=== PATIENT | female | born 1955 | race Caucasian/White ===

== ENCOUNTER 2023-06-11 05:06 | Emergency (ER) | payer OTHER, SELFPAY ==
[2023-06-11] VITALS (8 sets, daily range): BP systolic 81–136; BP diastolic 28–74
--- NOTE | 2023-06-11 07:03 | ED.GENMED ---
History of Present Illness
General
Chief Complaint: Cough
Source: patient
Exam Limitations: none
Time Seen by Provider: 06/11/23 06:18
Travel History
Have you had any contact with someone who has COVID-19?: No
Do you have any symptoms of coronavirus? Fever > 100 degrees, chills, cough, shortness of breath, sore throat, loss of taste or smell, muscle aches, or headache?: No
History of Present Illness
History of Present Illness:
67-year-old female states that she has had a cold for about a week and a half. She states she still is possible postnasal drip is been coughing. Starting last night she noticed some blood. She first noticed it by rinsing her mouth and tasting
blood. She states that she coughed and noticed that she had more blood. No fevers. Does have history of COPD and bronchiectasis and is followed by pulmonology. Patient also has a history of atrial fibrillation in the past and is on Eliquis.
Patient on evaluation states she feels okay. She has had no further hemoptysis here in the emergency department.
Past History
Past History
ED Past Medical History: Arrthythmia (Atrial fibrillation), Asthma, Cancer (Breast cancer), COPD, GERD, HTN and Other (Scleroderma, pulmonary pretension, bronchiectasis, anemia, alpha-1 antitrypsin deficiency)
ED Past Surgical History: Cholecystectomy, Gynecological (Right mastectomy) and Orthopedic
Social History
Tobacco: Non-smoker
Alcohol: None
Drug: None
Personal: Other
Living: with family
Employment: Retired
Family History
Family History: Other (Noncontributory)
Phy Exam
Physical Exam
Physical Exam:
CONSTITUTIONAL Patient alert and oriented to person, place and time. Well-appearing. Vital signs reviewed.
HEAD atraumatic, normocephalic.
EYES eyelids normal to inspection, Pupils equally round and reactive to light, Extraocular muscles intact, Conjunctiva normal, Sclera normal.
NECK normal range of motion, Trachea midline, no jugular venous distention.
RESPIRATORY CHEST No respiratory distress noted, Chest expansion equal, Bilateral breath sounds clear.
CARDIOVASCULAR regular rate and rhythm, Heart sounds normal.
ABDOMEN abdomen nontender, Bowel sounds normal. No distention.
BACK normal inspection, no obvious deformities
UPPER EXTREMITY range of motion normal, Motor strength normal, no cyanosis, no edema.
LOWER EXTREMITY range of motion normal, Motor strength normal, no cyanosis, no edema.
NEURO Speech normal, No focal motor deficits, Flower coma scale 15, Memory normal, Cranial Nerves intact to screening exam.
SKIN skin warm, dry, and normal in color.
PSYCHIATRIC patient oriented to person place and time, Normal affect.
Course
Orders/Labs/Results
Orders:
Orders
06/11/23 06:22
CR Chest - 2 Views Urgent
Comment:
Reason For Exam: cough
06/11/23 06:56
CT Chest With Iv Contrast Urgent
Comment:
Reason For Exam: hemoptysis, abnormal CXR
06/11/23 07:14
Complete Blood Count/With Diff Urgent
Comprehensive Metabolic Panel Urgent
Abnormal Lab Results
06/11/23
07:14
RBC 4.12 L 10^6/uL
(4.20-5.40)
Hct 35.1 L %
(37.0-47.0)
Absolute Monos (auto) 0.9 H 10^3/uL
(0.1-0.6)
Monocytes % 10.9 H %
(1.7-9.3)
Potassium 3.1 L mmol/L
(3.5-5.1)
Glucose 102 H mg/dl
(70-99)
Alkaline Phosphatase 134 H U/L
(38-126)
06/11/23 07:14
06/11/23 07:14
Vital Signs
Initial and Last Documented VS:
Initial Vital Signs
Temp Pulse Resp BP Pulse Ox
98.2 F 82 18 134/70 97
06/11/23 05:08 06/11/23 05:08 06/11/23 05:08 06/11/23 05:08 06/11/23 05:08
Last Documented Vital Signs
Temp Pulse Resp BP Pulse Ox
98.2 F 67 16 115/66 93
06/11/23 05:08 06/11/23 07:00 06/11/23 07:00 06/11/23 11:00 06/11/23 11:30
MDM/Problems Addressed
MDM/Problems Addressed:
Hemoptysis, therapeutic anticoagulation
*Radiology
Radiology exam reviewed: preliminary read by ED provider (Chest x-ray abnormal with left nodule versus rounded pneumonia) and radiology read reviewed
*Pulse Oximetry
Patient hypoxic: no
*Telephone Cleaner Interpretation
Rate: normal
Interpretation: normal
Rhythm: sinus
*Critical Care Note
Total Time (30-74mins, 75-104mins- exclusive of procedures): 30 minutes
Data Reviewed
Source: patient
Patient Management
Discussion with other providers: Panelboard [employer] Pumper (Case discussed with pulmonology)
Escalation/DeEscalation of care consider admission/obs:
Patient remained stable throughout most of her stay. Upon eating a sandwich she noticed blood. On reassessment she does have some blood between her left incisor and canine at the gingiva and she also has a small mucosal lesion behind the front 2
teeth on the upper mucosa. I suspect this is the etiology of her bleeding. Case was discussed with pulmonology regarding her CT did recommend steroids and antibiotics which I think is reasonable. In addition, will have her hold her Eliquis for
today and discuss it with her doctor tomorrow. She currently has a regular rhythm
ED Attending Note
-
Portions of this chart may have been created with voice recognition software.� Occasional wrong word or��sound alike� substitutions may have occurred due to the inherent limitations of voice recognition software.
Discharge Plan
Departure
Patient Disposition: Home (Routine Discharge)
Date of Disposition: 06/11/23
Time of Disposition: 12:24
Patient with high blood pressure during this ER visit?: No
Discharge Problem:
Bleeding oral mucosa, Bronchiectasis
Prescriptions:
New
prednisone 10 mg tablet
10 mg PO DAILY Qty: 15 0RF
Rx Instructions:
Take 20mg daily x 5 days then 10mg daily x 5 days
amoxicillin-pot clavulanate 875-125 mg tablet
1 tab PO Q12H Qty: 20 0RF
No Action
omeprazole 40 MG capsule,delayed release(DR/EC)
40 mg PO DAILY
albuterol sulfate 1 PUFF HFA aerosol inhaler
2 puff inhalation R Q4HPRN PRN (Reason: sob)
anastrozole 1 MG tablet
1 mg PO HS
fluoxetine 20 MG capsule
20 mg PO DAILY
furosemide 40 MG tablet
40 mg PO BID
Eliquis 5 MG tablet
5 mg PO BID
Hold Instructions: restart 10/31
diltiazem HCl 240 MG capsule,extended release 24hr
240 mg PO DAILY
atorvastatin 10 mg Tablet
10 mg PO HS
budesonide-formoterol [Symbicort] 80-4.5 mcg/actuation Hfa Aerosol Inhaler
2 puff INHALATION BID
Patient Comments:
on hold
Spiriva Respimat 1.25 mcg/actuation Mist
2 puff INHALATION DAILY
Patient Comments:
on hold
Vitamin D (with calcium)
1 tab PO DAILY
Rx Instructions:
1000 IU
Referrals:
John Palencia I., DO [Family Provider] -
Activity Restrictions/Additional Instructions:
Bronchiectasis
Bleeding oral mucosa
Please hold your Eliquis today and discuss further use with your doctor tomorrow. Please do not bite into anything hard or any other food and keep food soft and use a fork to place the food in the back of the mouth. Return for difficulty
breathing, fevers, increased bleeding or any other concerns. Please see pulmonology in the next 1 week for follow-up
Interventions
Interventions:
*Risk Screen - Suicide Last Done: 06/11/23 05:08
*General Assessment Last Done: 06/11/23 05:38
*Neglect/Abuse Screening Last Done: 06/11/23 05:08
ED- Fall Risk Assessment Last Done: 06/11/23 05:38
*ED COVID-19 Vaccine History Last Done: 06/11/23 05:38
ED- Pulmonary Assessment Last Done: 06/11/23 07:33
Discharge Date and Time
Print Language: CROATIAN
[2023-06-11 07:26] LABS: % Basophils 0.7 % (0-2); % Eosinophils 2.3 % (0-6); % Immature Granulocytes 0.5 % (0-0.5); % Lymphocytes 21.4 % (20.5-51.1); % Monocytes 10.9 % (1.7-9.3); % Neutrophils 64.2 % (42.2-75.2); Absolute Basophils 0.1 10^3/uL (0-0.2); Absolute Eosinophils 0.2 10^3/uL (0-0.7); Absolute Lymphocytes 1.8 10^3/uL (1.2-3.4); Absolute Monocytes 0.9 10^3/uL (0.1-0.6); Absolute Neutrophils 5.4 10^3/uL (1.4-6.5); Hematocrit 35.1 % (37.0-47.0); Hemoglobin 12.2 g/dL (12.0-16.0); Mean Corp Hgb Conc. 34.8 g/dL (33.0-37.0); Mean Corpuscular Hgb 29.6 pg (27.0-31.0); Mean Corpuscular Volume 85.2 fL (81.0-99.0); Mean Platelet Volume 9.4 fL (7.4-10.4); Nucleated Red Blood Cells % 0 %; Platelet Count 304 10^3/uL (130-400); Red Blood Cell Count 4.12 10^6/uL (4.20-5.40); Red Cell Dist. Width 12.6 % (11.5-14.5); White Blood Cell Count 8.4 10^3/uL (4.8-10.8)
[2023-06-11 07:43] LABS: ALT (SGPT) 15 U/L (0-35); AST (SGOT) 27 U/L (14-36); Albumin 4.4 g/dl (3.5-5.0); Alkaline Phosphatase 134 U/L (38-126); Blood Urea Nitrogen 15 mg/dl (7-17); Calcium 9.5 mg/dl (8.4-10.2); Carbon Dioxide 30 mmol/L (22-30); Chloride 99 mmol/L (98-107); Glucose 102 mg/dl (70-99); Potassium 3.1 mmol/L (3.5-5.1); Sodium 136 mmol/L (135-145); Total Bilirubin 0.4 mg/dl (0.2-1.3); Total Protein 7.5 g/dl (6.3-8.2); eGFR > 60.00
== END 2023-06-11 12:48 | disposition home or self-care (01) ==
LOC: EMR 05:06
PROVIDERS: EMERGENCY PHYSICIAN Emergency Medicine; FAMILY PHYSICIAN Internal Medicine
DX: J47.9 Bronchiectasis, uncomplicated (principal); K13.79 Other lesions of oral mucosa; J44.9 Chronic obstructive pulmonary disease, unspecified; I48.91 Unspecified atrial fibrillation; J45.909 Unspecified asthma, uncomplicated; K21.9 Gastro-esophageal reflux disease without esophagitis; I10 Essential (primary) hypertension; M34.9 Systemic sclerosis, unspecified; Z79.01 Long term (current) use of anticoagulants; Z85.3 Personal history of malignant neoplasm of breast; Z90.11 Acquired absence of right breast and nipple; Z90.49 Acquired absence of other specified parts of digestive tract; Z98.82 Breast implant status
CPT/HCPCS: 99284; 71046; 71260; 80053; 85025; Q9967

== ENCOUNTER 2023-07-01 02:37 | Inpatient (IN) | payer OTHER, MEDICARE, SELFPAY ==
[2023-06-30 20:10] VITALS: BP 104/73; BMI 30.4
[2023-06-30 20:36] LABS: % Basophils 0.3 % (0-2); % Eosinophils 0.3 % (0-6); % Immature Granulocytes 0.3 % (0-0.5); % Lymphocytes 8.2 % (20.5-51.1); % Monocytes 8.8 % (1.7-9.3); % Neutrophils 82.1 % (42.2-75.2); Absolute Lymphocytes 1.1 10^3/uL (1.2-3.4); Absolute Monocytes 1.2 10^3/uL (0.1-0.6); Absolute Neutrophils 11.3 10^3/uL (1.4-6.5); Hematocrit 38.3 % (37.0-47.0); Hemoglobin 13.5 g/dL (12.0-16.0); Mean Corp Hgb Conc. 35.2 g/dL (33.0-37.0); Mean Corpuscular Hgb 29.6 pg (27.0-31.0); Mean Platelet Volume 9.9 fL (7.4-10.4); Nucleated Red Blood Cells % 0 %; Platelet Count 188 10^3/uL (130-400); Red Blood Cell Count 4.56 10^6/uL (4.20-5.40); Red Cell Dist. Width 13.2 % (11.5-14.5); White Blood Cell Count 13.7 10^3/uL (4.8-10.8)
[2023-06-30 20:55] LABS: COVID-19 Antigen Negative (Negative)
[2023-06-30 20:59] LABS: ALT (SGPT) 17 U/L (0-35); AST (SGOT) 24 U/L (14-36); Alkaline Phosphatase 127 U/L (38-126); Blood Urea Nitrogen 18 mg/dl (7-17); Calcium 9.7 mg/dl (8.4-10.2); Carbon Dioxide 22 mmol/L (22-30); Chloride 99 mmol/L (98-107); Estimated Creatinine Clearance 57 ml/min; Glucose 151 mg/dl (70-99); Potassium 3.5 mmol/L (3.5-5.1); Sodium 130 mmol/L (135-145); Total Bilirubin 1.2 mg/dl (0.2-1.3); Total Protein 7.1 g/dl (6.3-8.2); eGFR > 60.00
[2023-06-30 21:25] VITALS: BP 127/57
[2023-06-30 22:21] VITALS: BP 107/68
--- NOTE | 2023-06-30 22:39 | ED.GENMED ---
History of Present Illness
General
Chief Complaint: Fever
Source: patient
Exam Limitations: none
Time Seen by Provider: 06/30/23 21:45
Nursing documentation reviewed up to this point in time: agreed with
Travel History
Have you had any contact with someone who has COVID-19?: No
Do you have any symptoms of coronavirus? Fever > 100 degrees, chills, cough, shortness of breath, sore throat, loss of taste or smell, muscle aches, or headache?: No
History of Present Illness
History of Present Illness:
Patient is a 67-year-old female with past medical history of scleroderma COPD A-fib hypertension GI bleed followed by pulmonology presents to the ER complaining of cough subjective fevers for the past 2 days. She feels very weak she is short of
breath with exertion. She has been using her inhalers at home. Patient was seen here June 10 for bronchiectasis and cough and was discharged on antibiotics and steroids. She did report that after completion of antibiotics she did feel
improvement and the symptoms are new for the past several days after seeing her grandkids.
Patient did have a CAT scan during that ER visit 06/10 which showed stable moderate extensive bronchiectasis throughout both lungs stable 2 cm enlarged pretracheal lymph node at the level of the damaris and new patchy areas of airspace disease in
right middle lobe may reflect pneumonia or mucoid impaction.
Past History
Past History
ED Past Medical History: Arrthythmia (Atrial fibrillation), Asthma, Cancer (Breast cancer), COPD, GERD, HTN and Other (Scleroderma, pulmonary pretension, bronchiectasis, anemia, alpha-1 antitrypsin deficiency)
ED Past Surgical History: Cholecystectomy, Gynecological (Right mastectomy) and Orthopedic
Social History
Tobacco: Non-smoker
Alcohol: None
Drug: None
Personal: Other
Living: with family
Employment: Retired
Family History
Family History: Other (Noncontributory)
Review of Systems
Review of Systems
Allergies reviewed?: Yes
All Other Systems: ROS reviewed and negative except as documented in HPI and ROS
Constitutional: Reports fever, fatigue and chills
EENT: Reports no symptoms
Respiratory: Reports cough and trouble breathing
Cardiac: Reports no symptoms
ABD/GI: Reports no symptoms
: Reports no symptoms
Musculoskeletal: Reports no symptoms
Skin: Reports no symptoms
Neurological: Reports no symptoms
Psychiatric: Reports no symptoms
Phy Exam
General Physical Exam
General Presentation: no apparent distress
General age: appears stated age
General Skin: warm and dry
General Habitus: normal
General Mental: alert
General Hydration: appears well hydrated
Cardiovascular Exam
Cardiovascular Exam: no murmur, normal peripheral pulses and irregularly irregular
Pulmonary Exam
Pulmonary Exam: no respiratory distress and other (+ cough rhonchi throughout )
Neurological Exam
Neurological Exam: alert and oriented x3
Musculoskeletal Exam
Musculoskeletal Exam: full ROM
Skin Exam
Skin Exam: normal color and warm/dry
Psychiatric Exam
Psychiatric Exam: normal mood/affect
Course
Orders/Labs/Results
Orders:
Orders
06/30/23 20:13
Electrocardiogram (*1) Urgent
Reason for Study: Other
Other Reason for Exam: Respiratory Distress
EKG- Treatment ONCE
CR Chest - 2 Views Urgent
Comment:
Reason For Exam: respiratory distress
06/30/23 20:28
COVID-19 Antigen Urgent
Source: Nasal Swab
Complete Blood Count/With Diff Urgent
Comprehensive Metabolic Panel Urgent
Influenza A+B Rapid Molecular Urgent
KALEB Source: Nasal Swab
Specimen Description:
06/30/23 23:36
Albuterol Nebs [Ventolin Nebules] 2.5 mg INH R NOW STA
06/30/23 23:45
Lactic Acid Q4H
Comment: CANCEL 2nd LACTIC ACID IF 1st LACTIC ACID IS LESS THAN 2
Blood Culture Q30M
KALEB Source: Blood/Venous
Specimen Description:
07/01/23 00:15
Blood Culture Q30M
KALEB Source: Blood/Venous
Specimen Description:
07/01/23 03:45
Lactic Acid Q4H
Comment: CANCEL 2nd LACTIC ACID IF 1st LACTIC ACID IS LESS THAN 2
Abnormal Lab Results
06/30/23
20:28
WBC 13.7 H 10^3/uL
(4.8-10.8)
Absolute Neuts (auto) 11.3 H 10^3/uL
(1.4-6.5)
Absolute Lymphs (auto) 1.1 L 10^3/uL
(1.2-3.4)
Absolute Monos (auto) 1.2 H 10^3/uL
(0.1-0.6)
Neutrophils % 82.1 H %
(42.2-75.2)
Lymphocytes % 8.2 L %
(20.5-51.1)
Sodium 130 L mmol/L
(135-145)
BUN 18 H mg/dl
(7-17)
Glucose 151 H mg/dl
(70-99)
Alkaline Phosphatase 127 H U/L
(38-126)
06/30/23 20:28
06/30/23 20:28
Vital Signs
Initial and Last Documented VS:
Initial Vital Signs
Temp Pulse Resp BP Pulse Ox
97.7 F 91 20 104/73 96
06/30/23 20:10 06/30/23 20:10 06/30/23 20:10 06/30/23 20:10 06/30/23 20:10
Last Documented Vital Signs
Temp Pulse Resp BP Pulse Ox
97.7 F 93 17 124/68 90
06/30/23 20:10 06/30/23 23:00 06/30/23 23:00 06/30/23 23:00 06/30/23 23:00
MDM/Problems Addressed
Differential Diagnosis Includes:
Not limited to viral syndrome bronchitis COVID flu pneumonia
MDM/Problems Addressed:
Patient is a 67-year-old female with scleroderma bronchiectasis presents to the ER with productive cough shortness of breath for the past couple days subjective fevers. Patient presents awake alert in no acute distress minimally hypoxic
intermittently will go down as low as 89% on room air patient's has an elevated white count of 13.7 low sodium 130 and worsening bilateral pneumonia. With patient's history of bronchiectasis and scleroderma will admit and or IV antibiotics.
Patient from the Augmentin she felt that she improved during previous on June 10 she does report that this is a new symptom for the past several days.
Patient does have a history of A-fib but normally is in normal sinus rhythm she is anticoagulated. She is found to be in A-fib here with some ST changes. She has had no chest pain however we will still check troponin. pt adm to hosptitalist
service.
Chronic conditions affecting care:
Scleroderma bronchiectasis
*Radiology
Radiology exam reviewed: radiology read reviewed
*Pulse Oximetry
Patient hypoxic: yes
*EKG
Interpreted by ED Provider?: Yes
Interpretation: abnormal
Heart Rate: 93
*Critical Care Note
Total Time (30-74mins, 75-104mins- exclusive of procedures): Not Applicable
ED Attending Note
-
Portions of this chart may have been created with voice recognition software.� Occasional wrong word or��sound alike� substitutions may have occurred due to the inherent limitations of voice recognition software.
Discharge Plan
Departure
Patient Disposition: Home (Routine Discharge)
Date of Disposition: 06/30/23
Time of Disposition: 23:44
Patient with high blood pressure during this ER visit?: No
Condition: Fair
Covid-19: Not Applicable
Discharge Problem:
bilateral pneumonia, hypoxia
Prescriptions:
No Action
omeprazole 40 MG capsule,delayed release(DR/EC)
40 mg PO DAILY
albuterol sulfate 1 PUFF HFA aerosol inhaler
2 puff inhalation R Q4HPRN PRN (Reason: sob)
anastrozole 1 MG tablet
1 mg PO HS
fluoxetine 20 MG capsule
20 mg PO DAILY
furosemide 40 MG tablet
40 mg PO BID
Eliquis 5 MG tablet
5 mg PO BID
Hold Instructions: restart 10/31
diltiazem HCl 240 MG capsule,extended release 24hr
240 mg PO DAILY
atorvastatin 10 mg Tablet
10 mg PO HS
budesonide-formoterol [Symbicort] 80-4.5 mcg/actuation Hfa Aerosol Inhaler
2 puff INHALATION BID
Patient Comments:
on hold
Spiriva Respimat 1.25 mcg/actuation Mist
2 puff INHALATION DAILY
Patient Comments:
on hold
Vitamin D (with calcium)
1 tab PO DAILY
Rx Instructions:
1000 IU
prednisone 10 mg tablet
10 mg PO DAILY Qty: 15 0RF
Rx Instructions:
Take 20mg daily x 5 days then 10mg daily x 5 days
amoxicillin-pot clavulanate 875-125 mg tablet
1 tab PO Q12H Qty: 20 0RF
Referrals:
John Palencia I., DO [Family Provider] -
Interventions
Interventions:
*Risk Screen - Suicide Last Done: 06/30/23 20:10
*Neglect/Abuse Screening Last Done: 06/30/23 20:10
ED- Fall Risk Assessment Last Done: 06/30/23 20:10
ED- Neurological Assessment Last Done: 06/30/23 21:25
ED-Skin Assessment Last Done: 06/30/23 21:25
Discharge Date and Time
Print Language: TAMAZIGHT
[2023-06-30 23:00] VITALS: BP 124/68
[2023-06-30] MEDS: VENTOLIN NEBULES 2.5 MG INH (23:49)
[2023-07-01] VITALS (14 sets, daily range): BP systolic 94–131; BP diastolic 59–79; PULSE 95–151; O2SAT 96; BMI 31.6
[2023-07-01] MEDS: ROCEPHIN 1000 MG IV ×2 (00:40→23:20)
[2023-07-01] MEDS: ZITHROMAX INFUSION 250 IV (00:43)
[2023-07-01 00:48] LABS: Lactic Acid 1.6 mmol/L (0.7-2.0)
[2023-07-01 01:00] LABS: Troponin I < 0.012 ng/ml
--- NOTE | 2023-07-01 02:21 | HPS.HSE ---
Family Physician
-
Family Physician: John Palencia
Chief Complaint
-
Fatigue
History of Present Illness
Patient is a 67y F with PMH significant for bronchiectasis, ILD, scleroderma / CREST syndrome who presents to ED complaining of generalized fatigue and weakness for the past few days. Patient states that she was seen in the ED here last month
with similar symptoms. She was diagnosed with L sided pneumonia (though it depends on the images you reference) and was treated with oral steroids and Augmentin. Patient states that her symptoms at that time fully resolved. She was feeling well
until this past Monday when she began to feel fatigue return. Patient notes that she spent the weekend with her grandchildren before each of these episodes.
She has a mild, non-productive cough. Low grade fever at home to 100.5 or so. Poor appetite.
Patient presented to the ED this evening for further evaluation.
Medical History
Past Medical History
Past Medical History: Reports Other
Additional Past Medical History:
Bronchiectasis / ILD
Scleroderma / CREST syndrome / Raynaud's
Hypertension
Paroxysmal Atrial Fibrillation
Chronic HFpEF
TAMMY Intolerant of PAP Therapy
Right DCIS
Anxiety / Depression
Past Surgical History: Reports Other
Additional Past Surgical History:
Right Lumpectomy
Right Mastectomy / Reconstruction
Rotator Cuff Repair
Robotic Right Pyeloplasty
PVI Ablation
Social History
Tobacco: Non-smoker
Alcohol: None
Drug: None
Family History
Family History: Other (Father: Alpha-1 Antitrypsin Deficiency)
Allergies / Home Medications
Allergies reflects when Allergies were last updated in [facility].
Home Medications with original date entered in [facility]
Allergy/Medication List:
Allergies
Allergy/AdvReac Type Severity Reaction Status Date / Time
codeine Allergy Hives, Verified 05/03/24 20:12
Itching
Sulfa (Sulfonamide Allergy Hives, Verified 06/30/23 20:12
Antibiotics) itching
Sympathomimetic A Allergy Pharmacy Verified 06/30/23 20:12
*RETIRED-10/12/11 to Review
pseudoephedrine AdvReac jittery Verified 06/30/23 20:12
Home Medications
omeprazole 40 mg capsule,delayed release 40 mg PO DAILY Gastrointestinal issue 02/17/18
albuterol sulfate 90 mcg/actuation aerosol inhaler 2 puff inhalation R Q4HPRN PRN sob 06/07/18
anastrozole 1 mg tablet 1 mg PO HS Cancer 12/07/19
fluoxetine 20 mg capsule 20 mg PO DAILY Depression 05/12/20
furosemide 40 mg tablet 80 mg PO BID Fluid retention/Swelling 06/17/20
apixaban 5 mg tablet (Eliquis) 5 mg PO BID Blood clot prevention/tx 09/11/20
diltiazem HCl 240 mg capsule,extended release 24 hr 240 mg PO BID Arrhythmia 09/11/20
atorvastatin 10 mg tablet 10 mg PO HS High cholesterol 01/31/22
budesonide-formoterol HFA 80 mcg-4.5 mcg/actuation aerosol inhaler (Symbicort) 2 puff inhalation BID Lung/Breathing Issues 11/24/22
tiotropium bromide 1.25 mcg/actuation mist for inhalation (Spiriva Respimat) 2 puff inhalation DAILY Lung/Breathing Issues 11/24/22
budesonide-formoterol HFA 80 mcg-4.5 mcg/actuation aerosol inhaler (Symbicort) 2 puff inhalation BID 07/01/23
guaifenesin 600 mg tablet, extended release 12 hr (Mucinex) 600 mg PO BID PRN cough 07/01/23
Review of Systems
-
History Source: Patient
A 12 point ROS was completed and negative except as noted: Yes
Constitutional: Reports Fever and Fatigue; Denies Chills
EENT: Denies Sore Throat
Respiratory: Reports Cough and Trouble Breathing; Denies Hemoptysis
Cardiac: Denies Chest Pain or Palpitations
Abdomen/GI: Reports Anorexia; Denies Abdominal Pain, Nausea, Vomiting, Diarrhea, Constipated, Bloody Stools or Black Stools
: Denies Dysuria, Frequency or Flank Pain
Musculoskeletal: Denies Edema
Neurological: Denies Dizzy or Headache
Psych: Denies Depression or Anxiety
Physical Exam
Vital Signs
Vital Signs
Temp Pulse Resp BP Pulse Ox
97.7 F 111 27 118/64 95
06/30/23 20:10 07/01/23 02:15 07/01/23 02:15 07/01/23 02:00 07/01/23 02:15
Physical Exam
General: Other (67y F in no acute distress.)
HEENT: Moist mucous membranes, PERRLA and Other (Neck supple. No JVD.)
Respiratory: Other (Few scattered rales. No wheezing. )
Cardiac: S1/S2 and Irregular Rhythm; No Murmur
GI: Soft, Non Tender, Non Distended and Normal Bowel Sounds
Musculoskeletal: No Clubbing, No Cyanosis and No Edema
Neuro: AO x 3
Laboratory Results
-
06/30/23 20:28
06/30/23 20:28
Laboratory Results
Lactic Acid 1.6 mmol/L (0.7-2.0) 07/01/23 00:01
Total Bilirubin 1.2 mg/dl (0.2-1.3) 06/30/23 20:28
AST 24 U/L (14-36) 06/30/23 20:28
ALT 17 U/L (0-35) 06/30/23 20:28
Alkaline Phosphatase 127 U/L (38-126) H 06/30/23 20:28
Troponin I < 0.012 ng/ml 07/01/23 00:01
Impression/Plan
-
A/P: Patient is a 67y F with PMH significant for bronchiectasis / ILD and scleroderma / CREST syndrome who presents to ED complaining of fatigue, anorexia and general malaise x several days.
Bilateral Pneumonia
Bronchiectasis / ILD
- Admit for further evaluation and treatment.
- CXR shows increased pulmonary opacities in areas similar to those seen of CXR and CT scans done one month ago.
- Will restart abx with ceftriaxone / doxycycline for now.
- Pulmonary evaluation given recurrent symptoms / similar areas of involvement noted on imaging.
- Supportive care including mucolytics, nebs, etc.
- Follow for clinical improvement.
Paroxysmal Atrial Fibrillation
SVT
- EKG and tele show sinus rhythm with periods of sinus arrhythmia / SVT.
- Monitor on telemetry overnight.
- ? MAT secondary to pulmonary process.
- Follow for any changes.
- Consider Cardiology evaluation if any new / acute issues.
- Continue current outpatient regimen including diltiazem, Eliquis, etc.
Chronic HFpEF
- Patient is maintained on Lasix 80mg BID.
- No evidence of volume overload on exam.
- Continue usual PO Lasix dosing.
- Follow I/Os, daily weights, etc.
TAMMY
- Unfortunately, patient notes that she is not tolerant of PAP therapy.
- Has machine at home but never uses it.
- Monitor SpO2 (has known nocturnal hypoxemia due to the above).
Benign Hypertension
- Stable. Continue outpatient medications.
Scleroderma
CREST Syndrome
Raynaud's
- Stable. Continue usual supportive medications.
History of Breast Cancer
- s/p R mastectomy.
- Continue anastrazole for ongoing therapy.
DVT Prophylaxis: On Eliquis
Code Status: Full
[2023-07-01 06:48] LABS: Hematocrit 34.2 % (37.0-47.0); Mean Corp Hgb Conc. 35.1 g/dL (33.0-37.0); Mean Corpuscular Hgb 29.9 pg (27.0-31.0); Mean Corpuscular Volume 85.1 fL (81.0-99.0); Mean Platelet Volume 10.4 fL (7.4-10.4); Platelet Count 150 10^3/uL (130-400); Red Blood Cell Count 4.02 10^6/uL (4.20-5.40); Red Cell Dist. Width 13.3 % (11.5-14.5)
[2023-07-01 07:00] LABS: Blood Urea Nitrogen 18 mg/dl (7-17); Calcium 9.2 mg/dl (8.4-10.2); Carbon Dioxide 23 mmol/L (22-30); Chloride 98 mmol/L (98-107); Estimated Creatinine Clearance 64 ml/min; Glucose 117 mg/dl (70-99); Potassium 3.2 mmol/L (3.5-5.1); Sodium 131 mmol/L (135-145); eGFR > 60.00
[2023-07-01] MEDS: DUONEB 3 ML INH ×4 (08:25→20:34)
[2023-07-01] MEDS: LASIX 80 MG PO ×2 (09:40→20:10)
[2023-07-01] MEDS: PROTONIX 40 MG PO (09:42)
[2023-07-01] MEDS: PROZAC 20 MG PO (09:42)
[2023-07-01] MEDS: VIBRAMYCIN 100 MG PO ×2 (09:42→20:10)
[2023-07-01] MEDS: MUCINEX 600 MG PO ×2 (09:42→20:10)
[2023-07-01] MEDS: CARDIZEM CD 240 MG PO ×2 (09:43→20:09)
[2023-07-01] MEDS: ELIQUIS 5 MG PO ×2 (09:43→20:10)
--- NOTE | 2023-07-01 09:55 | W.PN.HOSP.TC ---
Today's Communication/Plan
-
antibiotics to continue
consult Pulmonary
follow up CXR
Assessment / Plan
Assessment / Plan
A/P: Patient is a 67y F with PMH significant for bronchiectasis / ILD and scleroderma / CREST syndrome who presents to ED complaining of fatigue, anorexia and general malaise x several days.
Patient is a 67y F with PMH significant for bronchiectasis, ILD, scleroderma / CREST syndrome who presents to ED complaining of generalized fatigue and weakness for the past few days. Patient states that she was seen in the ED here last month
with similar symptoms. She was diagnosed with L sided pneumonia (though it depends on the images you reference) and was treated with oral steroids and Augmentin. Patient states that her symptoms at that time fully resolved. She was feeling well
until this past Monday when she began to feel fatigue return. Patient notes that she spent the weekend with her grandchildren before each of these episodes.
She has a mild, non-productive cough. Low grade fever at home to 100.5 or so. Poor appetite.
Bilateral Pneumonia
Bronchiectasis / ILD
- CXR shows increased pulmonary opacities in areas similar to those seen of CXR and CT scans done one month ago.
- Will restart abx with ceftriaxone / doxycycline for now.
- Pulmonary evaluation given recurrent symptoms / similar areas of involvement noted on imaging.
- Supportive care including mucolytics, nebs, etc.
- No wheeze noted, did not add steroids
WBC 13.7-->11.0
CXR: Lungs: Overall worsening aeration of the lungs compared to the previous exam, increased bilateral pneumonia, now involving the right middle and upper lung zones as well as the left lower lobe posteriorly and the lingula
Paroxysmal Atrial Fibrillation
SVT
- EKG and tele show sinus rhythm with periods of sinus arrhythmia / SVT.
- Monitor on telemetry overnight.
- ? MAT secondary to pulmonary process.
- Follow for any changes.
- Consider Cardiology evaluation if any new / acute issues. Call placed and updated Dr. Brett Herbert, who will be available if needed
- Continue current outpatient regimen including diltiazem, Eliquis, etc.
Chronic HFpEF
- Patient is maintained on Lasix 80mg BID.
- No evidence of volume overload on exam.
- Continue usual PO Lasix dosing.
- Follow I/Os, daily weights, etc.
TAMMY
- Unfortunately, patient notes that she is not tolerant of CPAP therapy.
- Has machine at home but never uses it.
- Monitor SpO2 (has known nocturnal hypoxemia due to the above).
Benign Hypertension
- Stable. Continue outpatient medications.
Scleroderma
CREST Syndrome
Raynaud's
- Stable. Continue usual supportive medications.
History of Breast Cancer
- s/p R mastectomy.
- Continue anastrazole for ongoing therapy.
DVT Prophylaxis: On Eliquis
Code Status: Full
Anticipated Discharge: > 48 hours
Subjective/Interval History
-
Date of Service: July 01, 2023
Awake, alert, frequent coughing
Objective Data
-
Labs:
Laboratory Results
07/01/23
06:06
WBC 11.0 H
Hgb 12.0
Hct 34.2 L
Plt Count 150 D
Sodium 131 L
Potassium 3.2 L
Chloride 98
Carbon Dioxide 23
BUN 18 H
Creatinine 0.8
Glucose 117 H
Calcium 9.2
Vital Signs:
Vital Signs
Temp Pulse Resp BP Pulse Ox
97.7 F 93 18 98/64 95
06/30/23 20:10 07/01/23 09:43 07/01/23 08:25 07/01/23 09:43 07/01/23 08:25
Review of Systems
-
History Source: Patient
EENT: Reports No Symptoms Reported
Respiratory: Reports Cough and Trouble Breathing
Cardiac: Reports No Symptoms; Denies Chest Pain or Palpitations
Abdomen/GI: Reports No Symptoms; Denies Abdominal Pain, Nausea or Vomiting
Musculoskeletal: Reports No Symptoms
Physical Exam
-
General: Well Developed, Well Nourished and No Apparent Distress
HEENT: Normocephalic, Atraumatic and Moist Mucous Membranes
Respiratory: Rales (scattered rales. Lt>Rt); Negative Wheezes, Rhonchi or Accessory Resp Muscle Use
Cardiac: Regular Rhythm and S1/S2
GI: Soft, Nontender and Nondistended
Musculoskeletal: No Clubbing, No Cyanosis and No Edema
Neuro: Awake, Alert and Oriented
[2023-07-01] MEDS: TESSALON PERLES 200 MG PO (15:28)
--- NOTE | 2023-07-01 17:18 | CON.PUL ---
Consultation
Consultation Request
Date/Time Consultation Requested: 07/01/2023
Date/Time Consultation Performed: 07/01/2023
Requesting Provider: Dr. Pang
Performing Provider: Dr. Marlo Azevedo
Reason for Consultation: Bilateral pneumonia
Medical History
-
History of Present Illness:
67-year-old woman with past medical history significant for bronchiectasis, interstitial lung disease, scleroderma/crest syndrome who presented to the emergency room complaining of generalized fatigue, weakness for the past few days. About a month
ago treated for pneumonia with steroids and Augmentin.
After dose antibiotics symptoms fully resolved.
About 3 days ago again started to feel fatigued and tired. She usually spends days with her grandchildren who are little.
Reports some coughing. Low-grade fevers.
Denies nausea vomiting or diarrhea.
Chest x-ray showed bilateral pulmonary infiltrates suggestive of pneumonia.
Past Medical History
Past Medical History: Other (See assessment and plan section)
Social History
Tobacco: Non-smoker
Alcohol: None
Drug: None
Family History
Family History: Reviewed & Not Pertinent
Allergies / Home Medications
Allergies
Allergy/AdvReac Type Severity Reaction Status Date / Time
codeine Allergy Hives, Verified 06/30/23 20:12
Itching
Sulfa (Sulfonamide Allergy Hives, Verified 06/30/23 20:12
Antibiotics) itching
Sympathomimetic A Allergy Pharmacy Verified 06/30/23 20:12
*RETIRED-10/12/11 to Review
pseudoephedrine AdvReac jittery Verified 06/30/23 20:12
Home Medications
�Medication �Instructions �Recorded �Confirmed �Last Taken �Type
omeprazole 40 mg capsule,delayed 40 mg PO DAILY Gastrointestinal 02/17/18 07/01/23 06/10/23 History
release issue
albuterol sulfate 90 mcg/actuation 2 puff inhalation R Q4HPRN PRN sob 06/07/18 07/01/23 06/10/23 History
aerosol inhaler
anastrozole 1 mg tablet 1 mg PO HS Cancer 12/07/19 07/01/23 06/10/23 History
fluoxetine 20 mg capsule 20 mg PO DAILY Depression 05/12/20 07/01/23 06/10/23 History
furosemide 40 mg tablet 80 mg PO BID Fluid 06/17/20 07/01/23 06/10/23 History
retention/Swelling
apixaban 5 mg tablet (Eliquis) 5 mg PO BID Blood clot 09/11/20 07/01/23 06/10/23 History
prevention/tx
diltiazem HCl 240 mg 240 mg PO BID Arrhythmia 09/11/20 07/01/23 06/10/23 History
capsule,extended release 24 hr
atorvastatin 10 mg tablet 10 mg PO HS High cholesterol 01/31/22 07/01/23 06/10/23 History
budesonide-formoterol HFA 80 2 puff inhalation BID 11/24/22 07/01/23 11/28/22 History
mcg-4.5 mcg/actuation aerosol Lung/Breathing Issues
inhaler (Symbicort)
tiotropium bromide 1.25 2 puff inhalation DAILY 11/24/22 07/01/23 11/28/22 History
mcg/actuation mist for inhalation Lung/Breathing Issues
(Spiriva Respimat)
budesonide-formoterol HFA 80 2 puff inhalation BID 07/01/23 07/01/23 Unknown History
mcg-4.5 mcg/actuation aerosol
inhaler (Symbicort)
guaifenesin 600 mg tablet, 600 mg PO BID PRN cough 07/01/23 07/01/23 Unknown History
extended release 12 hr (Mucinex)
Review of Systems
-
History Source: Patient
All other systems: Negative unless noted
Vitals / Labs / Diagnostic Testing
Vital Signs
Temp Pulse Resp BP Pulse Ox
98.3 F 87 20 108/60 99
05/04/24 15:09 07/01/23 15:51 07/01/23 15:51 07/01/23 15:09 07/01/23 15:51
Lab Data
07/01/23 06:06
07/01/23 06:06
Microbiology
06/30/23 20:28 Nasal Swab Influenza Types A & B (TORREY) - Final
Negative for Influenza A & B, NAAT
Negative results must be combined with clinical observations
and patient history.
Nucleic Acid Amplification test (NAAT)performed on the
[employer] platform.
Diagnostic Testing:
Physical Exam
-
HEENT: Normocephalic
Cardiovascular: S1/S2
Respiratory: Rales (Bibasilar) and Non-Labored Respirations
GI: Soft and Non Distended
Neurology: Awake, Alert, Oriented and No Motor Deficits
Skin: Warm
General: Respiratory Distress (n)
Assessment
-
Bilateral pneumonia
Negative COVID
Negative influenza
Leukocytosis
Acute respiratory insufficiency
Conditions present prior admission:
History of bronchiectasis/ILD- Follows up with Dr. Brar
PFT 04/07/23: FVC 2.43/89%, FEV1 1.89/91%, ratio 70. TLC 4.7/110%, DLCO 7.17/39%.
on Spiriva/Symbicort
Alpha one AT [facility], not on augmentation.
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
History of paroxysmal atrial fibrillation
Chronic heart failure with preserved ejection fraction
Obstructive sleep apnea- Intolerant to CPAP
History of esophageal stricture status post dilation
Hypertension
History of breast cancer status post right mastectomy on anastrozole
Echocardiogram 03/09/2023: Reviewed, showed normal LVEF. EF 60-65%. Normal right ventricle size and function. No significant valvular abnormalities. Pulmonary hypertension 29-34 mmHg.
Assessment and plan:
Clinical picture suggest community-acquired pneumonia.
Bibasilar crackles on exam.
Not bronchospastic
Chest x-ray noted with bilateral infiltrates.
Continue current antibiotics: Ceftriaxone/doxycycline.
Follow cultures
Follow fever curve and leukocytosis
-
Recommend speech evaluation, has history of esophageal strictures in the past. She denies any swallowing problems.
-
If there is no improvement will need repeat CT of the chest.
Was seen in mid May for possible pneumonia and treated with Augmentin
At that time CT of the chest showed bronchiectasis. 2 cm enlarged pretracheal lymph node. New patchy areas of confluent airspace disease in the right middle lobe and lingula.
-
Continue nebulizer therapy with DuoNebs [id number]
Will add Acapella device
Okay to hold inhalers while on exacerbation with coughing.
Mucolytic's
No indication for systemic corticosteroids
-
Secretion clearance intervention with Acapella device
Nebulizers with DuoNebs [id number].
-
Continue oxygen supplementation. Wean down as able.
Not usually on supplemental oxygen.
Home oxygen assessment prior to discharge
-
DVT prophylaxis: On anticoagulation.
-
Will follow
[2023-07-01] MEDS: LIPITOR 10 MG PO (21:25)
[2023-07-01] MEDS: ARIMIDEX 1 MG PO (22:02)
[2023-07-01] MEDS: STERILE WATER FOR INJECTION 10 ML IV (23:20)
[2023-07-02] VITALS (10 sets, daily range): BP systolic 96–148; BP diastolic 49–89; PULSE 73–95; O2SAT 96; BMI 31.4
[2023-07-02] MEDS: TYLENOL 650 MG PO ×3 (03:01→22:22)
[2023-07-02] MEDS: TESSALON PERLES 200 MG PO ×2 (03:02→20:15)
[2023-07-02] MEDS: DUONEB 3 ML INH ×4 (06:23→20:17)
[2023-07-02 06:49] LABS: % Basophils 0.3 % (0-2); % Eosinophils 0.3 % (0-6); % Immature Granulocytes 0.3 % (0-0.5); % Lymphocytes 13.3 % (20.5-51.1); % Monocytes 11.5 % (1.7-9.3); % Neutrophils 74.3 % (42.2-75.2); Absolute Lymphocytes 1.2 10^3/uL (1.2-3.4); Absolute Neutrophils 6.7 10^3/uL (1.4-6.5); Hematocrit 33.7 % (37.0-47.0); Hemoglobin 11.6 g/dL (12.0-16.0); Mean Corp Hgb Conc. 34.4 g/dL (33.0-37.0); Mean Corpuscular Hgb 29.2 pg (27.0-31.0); Mean Corpuscular Volume 84.9 fL (81.0-99.0); Nucleated Red Blood Cells % 0 %; Platelet Count 154 10^3/uL (130-400); Red Blood Cell Count 3.97 10^6/uL (4.20-5.40); Red Cell Dist. Width 13.2 % (11.5-14.5)
[2023-07-02 08:01] LABS: Blood Urea Nitrogen 20 mg/dl (7-17); Calcium 9.2 mg/dl (8.4-10.2); Carbon Dioxide 29 mmol/L (22-30); Chloride 97 mmol/L (98-107); Estimated Creatinine Clearance 56 ml/min; Glucose 104 mg/dl (70-99); Potassium 3.3 mmol/L (3.5-5.1); Sodium 131 mmol/L (135-145); eGFR > 60.00
[2023-07-02] MEDS: PROZAC 20 MG PO (08:16)
[2023-07-02] MEDS: PROTONIX 40 MG PO (08:16)
[2023-07-02] MEDS: MUCINEX 600 MG PO ×2 (08:16→19:45)
[2023-07-02] MEDS: ELIQUIS 5 MG PO ×2 (08:16→19:45)
[2023-07-02] MEDS: LASIX 80 MG PO ×2 (08:16→19:45)
[2023-07-02] MEDS: VIBRAMYCIN 100 MG PO ×2 (08:16→20:15)
[2023-07-02] MEDS: CARDIZEM CD PO (08:41)
--- NOTE | 2023-07-02 13:58 | W.PN.HOSP.TC ---
Addendum entered and electronically signed by Brett Short MD 07/02/23 14:09:
hypokalemia - will start K supplement
Original Note:
Today's Communication/Plan
-
CT scan of chest
Pt definitely improving, await further input from Pulm
Assessment / Plan
Assessment / Plan
A/P: Patient is a 67y F with PMH significant for bronchiectasis / ILD and scleroderma / CREST syndrome who presents to ED complaining of fatigue, anorexia and general malaise x several days.
Patient is a 67y F with PMH significant for bronchiectasis, ILD, scleroderma / CREST syndrome who presents to ED complaining of generalized fatigue and weakness for the past few days. Patient states that she was seen in the ED here last month
with similar symptoms. She was diagnosed with L sided pneumonia (though it depends on the images you reference) and was treated with oral steroids and Augmentin. Patient states that her symptoms at that time fully resolved. She was feeling well
until this past Monday when she began to feel fatigue return. Patient notes that she spent the weekend with her grandchildren before each of these episodes.
She has a mild, non-productive cough. Low grade fever at home to 100.5, now afebrile. Poor appetite.
Bilateral Pneumonia
Bronchiectasis / ILD
- CXR shows increased pulmonary opacities in areas similar to those seen of CXR and CT scans done one month ago.
- Will restart abx with ceftriaxone / doxycycline for now.
- Pulmonary evaluation given recurrent symptoms / similar areas of involvement noted on imaging.
- Supportive care including mucolytics, nebs, etc.
- No wheeze noted, did not add steroids
WBC 13.7-->11.0-->9k
discussed with pt potential CT scan of her lungs, to compare to prior, she is requesting we go ahead with this
CXR: Lungs: Overall worsening aeration of the lungs compared to the previous exam, increased bilateral pneumonia, now involving the right middle and upper lung zones as well as the left lower lobe posteriorly and the lingula
Paroxysmal Atrial Fibrillation
SVT
- EKG and tele show sinus rhythm with periods of sinus arrhythmia / SVT.
- Monitor on telemetry overnight.
- ? MAT secondary to pulmonary process.
- Follow for any changes.
- Consider Cardiology evaluation if any new / acute issues. Call placed and updated Dr. Brett Herbert, who will be available if needed
- Continue current outpatient regimen including diltiazem, Eliquis, etc.
Chronic HFpEF
- Patient is maintained on Lasix 80mg BID.
- No evidence of volume overload on exam.
- Continue usual PO Lasix dosing.
- Follow I/Os, daily weights, etc.
TAMMY
- Unfortunately, patient notes that she is not tolerant of CPAP therapy.
- Has machine at home but never uses it.
- Monitor SpO2 (has known nocturnal hypoxemia due to the above).
Benign Hypertension
- Stable. Continue outpatient medications.
Scleroderma
CREST Syndrome
Raynaud's
- Stable. Continue usual supportive medications.
History of Breast Cancer
- s/p R mastectomy.
- Continue anastrazole for ongoing therapy.
DVT Prophylaxis: On Eliquis
Code Status: Full
Anticipated Discharge: 24 - 48 hours
Subjective/Interval History
-
Date of Service: July 02, 2023
Pt believes she is starting to feel better and is requesting to shower
Objective Data
-
Labs:
Laboratory Results
07/02/23
06:18
WBC 9.0
Hgb 11.6 L
Hct 33.7 L
Plt Count 154
Sodium 131 L
Potassium 3.3 L
Chloride 97 L
Carbon Dioxide 29
BUN 20 H
Creatinine 0.9
Glucose 104 H
Calcium 9.2
Vital Signs:
Vital Signs
Temp Pulse Resp BP Pulse Ox
97.7 F 81 18 112/61 96
07/02/23 11:05 07/02/23 11:36 07/02/23 11:36 07/02/23 11:05 07/02/23 11:36
I&O
07/01/23 07/02/23 07/03/23
06:59 06:59 06:59
Output Total 1100 / 1100
Balance -1100 / -1100
Review of Systems
-
History Source: Patient
Constitutional: Denies Fever
EENT: Reports No Symptoms Reported
Respiratory: Reports Cough and Trouble Breathing (better)
Cardiac: Reports No Symptoms; Denies Chest Pain or Palpitations
Abdomen/GI: Reports No Symptoms; Denies Abdominal Pain, Nausea or Vomiting
Musculoskeletal: Reports No Symptoms
Physical Exam
-
General: Well Developed, Well Nourished and No Apparent Distress
HEENT: Normocephalic, Atraumatic and Moist Mucous Membranes
Respiratory: Negative Wheezes, Rales (scattered rales. Lt>Rt, now resolved), Rhonchi or Accessory Resp Muscle Use
Cardiac: Regular Rhythm and S1/S2
GI: Soft, Nontender and Nondistended
Musculoskeletal: No Clubbing, No Cyanosis and No Edema
Neuro: Awake, Alert and Oriented
[2023-07-02] MEDS: KCL 20 MEQ PO ×2 (14:13→19:45)
--- NOTE | 2023-07-02 16:56 | W.PN.PUL3 ---
Today's Communication / Plan
-
Continue current antibiotics
sputum culture if able
Nebulizer therapy
Acapella device
A speech evaluation
Follow cultures
Assessment
-
67-year-old woman with past medical history significant for bronchiectasis, interstitial lung disease, scleroderma/crest syndrome who presented to the emergency room complaining of generalized fatigue, weakness for the past few days. About a month
ago treated for pneumonia with steroids and Augmentin.
After dose antibiotics symptoms fully resolved.
About 3 days ago again started to feel fatigued and tired. She usually spends days with her grandchildren who are little.
Reports some coughing. Low-grade fevers.
Denies nausea vomiting or diarrhea.
Chest x-ray showed bilateral pulmonary infiltrates suggestive of pneumonia.
---
Bilateral pneumonia-persistent infiltrate since May.
Completed a course of prednisone and Augmentin in May.
Chest x-ray showed June 30, 2023 bilateral parenchymal opacities slight progression compared to prior on the right middle lobe.
Negative COVID
Negative influenza
Leukocytosis
Acute respiratory insufficiency
Conditions present prior admission:
History of bronchiectasis/ILD- Follows up with Dr. Brar
PFT 04/07/23: FVC 2.43/89%, FEV1 1.89/91%, ratio 70. TLC 4.7/110%, DLCO 7.17/39%.
on Spiriva/Symbicort
Alpha one AT [facility], not on augmentation.
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
History of paroxysmal atrial fibrillation
Chronic heart failure with preserved ejection fraction
Obstructive sleep apnea- Intolerant to CPAP
History of esophageal stricture status post dilation
Hypertension
History of breast cancer status post right mastectomy on anastrozole
Echocardiogram 03/09/2023: Reviewed, showed normal LVEF. EF 60-65%. Normal right ventricle size and function. No significant valvular abnormalities. Pulmonary hypertension 29-34 mmHg.
Assessment and plan:
Clinical picture suggest community-acquired pneumonia.
CT chest performed 07/02/2023: To my view worsening multifocal infiltrates/stable bronchiectasis. No pleural effusion. Wait for official report.
Persistent bilateral infiltrates compared to 06/11/2023.
CT chest 06/11/2023:
1.). Stable moderately extensive bronchiectasis throughout both lungs
2). Stable 2 cm enlarged pretracheal lymph node at the level of the damaris.
3). New patchy areas of confluent airspace disease in the right middle lobe and lingula which may reflect pneumonia or mucoid impaction
Not on oxygen supplementation.
Afebrile
Leukocytosis improving
Bibasilar crackles on exam.
Not bronchospastic
-
Continue current antibiotics: Ceftriaxone/doxycycline. She seems to be responding to these.
Cultures so far negative
Has not been able to produce sputum, ideally a sputum culture to evaluate for Pseudomonas infection may be helpful.
If there is no ongoing improvement then bronchoscopy with BAL will be necessary.
-
Recommend speech evaluation, has history of esophageal strictures in the past. She denies any swallowing problems.
Speech evaluation has been placed.
-
Continue nebulizer therapy with DuoNebs [id number]
Acapella device for secretion clearance.
Okay to hold inhalers while on exacerbation with coughing.(Usually on Symbicort/Spiriva/Mucinex)
Mucolytic's
-
No indication for systemic corticosteroids, not bronchospastic on exam.
-
Continue oxygen supplementation. Wean down as able.
Not usually on supplemental oxygen.
Home oxygen assessment prior to discharge
-
Patient has history of CREST-not on any therapy. Follows up with Dr. Baca.
-
DVT prophylaxis: On anticoagulation.
-
Will follow
-
Follow-up with Dr. Brar after DC
Subjective Data
-
Date of Service:
Date of Service: July 02, 2023
Chief Complaint: Pulmonary Follow Up (Bilateral pneumonia)
Objective Data
Data Reviewed
Vital Signs / I&O / Oxygen:
Vital Signs
Temp Pulse Resp BP Pulse Ox
98.2 F 86 16 129/64 94
07/02/23 15:12 07/02/23 15:49 07/02/23 15:49 07/02/23 15:12 07/02/23 15:49
Intake and Output
07/01/23 07/02/23 07/03/23
06:59 06:59 06:59
Output Total 1100 / 1100
Balance -1100 / -1100
SaO2 94
Nasal Cannula flow liters per 2
minute
Labs/Micro/Reports
Lab Data
07/02/23 06:18
07/02/23 06:18
Microbiology
07/01/23 00:35 Blood/Venous Blood Culture - Preliminary
No Growth in 24 hours- Final report to follow
07/01/23 00:01 Blood/Venous Blood Culture - Preliminary
No Growth in 24 hours- Final report to follow
06/30/23 20:28 Nasal Swab Influenza Types A & B (TORREY) - Final
Negative for Influenza A & B, NAAT
Negative results must be combined with clinical observations
and patient history.
Nucleic Acid Amplification test (NAAT)performed on the
[employer] platform.
[2023-07-02] MEDS: CARDIZEM CD 240 MG PO (19:45)
[2023-07-02] MEDS: ARIMIDEX 1 MG PO (22:17)
[2023-07-02] MEDS: LIPITOR 10 MG PO (22:17)
[2023-07-02] MEDS: ROCEPHIN 1000 MG IV (23:31)
[2023-07-02] MEDS: STERILE WATER FOR INJECTION 10 ML IV (23:32)
[2023-07-03] VITALS (7 sets, daily range): BP systolic 92–139; BP diastolic 51–98; PULSE 84–102; BMI 31.2
[2023-07-03 05:13] LABS: % Basophils 0.3 % (0-2); % Eosinophils 1.3 % (0-6); % Immature Granulocytes 0.4 % (0-0.5); % Lymphocytes 21.2 % (20.5-51.1); % Monocytes 9.4 % (1.7-9.3); % Neutrophils 67.4 % (42.2-75.2); Absolute Eosinophils 0.1 10^3/uL (0-0.7); Absolute Monocytes 0.9 10^3/uL (0.1-0.6); Absolute Neutrophils 6.4 10^3/uL (1.4-6.5); Hematocrit 37.7 % (37.0-47.0); Hemoglobin 12.9 g/dL (12.0-16.0); Mean Corp Hgb Conc. 34.2 g/dL (33.0-37.0); Mean Corpuscular Hgb 29.3 pg (27.0-31.0); Mean Corpuscular Volume 85.5 fL (81.0-99.0); Mean Platelet Volume 9.9 fL (7.4-10.4); Nucleated Red Blood Cells % 0 %; Platelet Count 243 10^3/uL (130-400); Red Blood Cell Count 4.41 10^6/uL (4.20-5.40); Red Cell Dist. Width 13.2 % (11.5-14.5); White Blood Cell Count 9.5 10^3/uL (4.8-10.8)
[2023-07-03 05:38] LABS: Blood Urea Nitrogen 23 mg/dl (7-17); Calcium 9.8 mg/dl (8.4-10.2); Carbon Dioxide 28 mmol/L (22-30); Chloride 99 mmol/L (98-107); Estimated Creatinine Clearance 55 ml/min; Glucose 94 mg/dl (70-99); Potassium 3.4 mmol/L (3.5-5.1); Sodium 136 mmol/L (135-145); eGFR > 60.00
[2023-07-03] MEDS: DUONEB 3 ML INH ×4 (08:12→20:00)
[2023-07-03] MEDS: MUCINEX 600 MG PO ×2 (09:24→21:09)
[2023-07-03] MEDS: ELIQUIS 5 MG PO ×2 (09:25→21:07)
[2023-07-03] MEDS: PROTONIX 40 MG PO (09:25)
[2023-07-03] MEDS: PROZAC 20 MG PO (09:25)
[2023-07-03] MEDS: LASIX 80 MG PO ×2 (09:25→21:08)
[2023-07-03] MEDS: CARDIZEM CD 240 MG PO ×2 (09:25→21:09)
[2023-07-03] MEDS: VIBRAMYCIN 100 MG PO ×2 (09:25→21:09)
[2023-07-03] MEDS: KCL 20 MEQ PO ×2 (09:25→21:08)
--- NOTE | 2023-07-03 09:53 | PTOTSP ---
SPEECH THERAPY SWALLOW EVALUATION:
Patient presents with grossly functional oropharyngeal swallow at this time; Suspect primarily esophageal dysphagia given complaints of substernal globus sensation with solids/liquids, history of esophageal stricture with dilation, and current Chest
CT with noted food debris in esophagus. Patient at risk for esophageal dysphagia related to history of scleroderma/CREST syndrome and GERD. No signs of aspiration were observed during the swallow. However, given patient with history of pneumonia x3,
suspect patient may be at risk for post-prandial aspiration related to esophageal phase dysphagia. Recommend GI consult to further assess esophageal phase of swallowing. Recommend continue Regular texture diet, thin liquids at this time.
Aspiration/Reflux precautions including: upright positioning; Remain upright 30 minutes after eating/drinking; small bites/sips; intersperse liquids/alternate textures while eating/drinking; slow rate of intake; take breaks while eating. Speech
therapy to follow, assess diet tolerance and modify as appropriate, and determine indication for further instrumental assessment of swallowing via VFSS if indicated pending GI results.
RECOMMEND:
1) GI consult to further assess esophageal phase of swallowing
2) continue Regular texture diet, thin liquids
3) Aspiration/Reflux precautions including: upright positioning; Remain upright 30 minutes after eating/drinking; small bites/sips; intersperse liquids/alternate textures while eating/drinking; slow rate of intake; take breaks while eating
4) Speech therapy to follow
--- NOTE | 2023-07-03 10:47 | W.PN.PUL3 ---
Today's Communication / Plan
-
Continue current antibiotics
sputum culture if able
Resume home inhalers with Symbicort and Spiriva
Acapella device
Outpatient GI evaluation
O2 walk study prior to discharge
Assessment
-
67-year-old woman with past medical history significant for bronchiectasis, interstitial lung disease, scleroderma/crest syndrome who presented to the emergency room complaining of generalized fatigue, weakness for the past few days. About a month
ago treated for pneumonia with steroids and Augmentin.
After dose antibiotics symptoms fully resolved.
About 3 days ago again started to feel fatigued and tired. She usually spends days with her grandchildren who are little.
Reports some coughing. Low-grade fevers.
Denies nausea vomiting or diarrhea.
Chest x-ray showed bilateral pulmonary infiltrates suggestive of pneumonia.
---
Bilateral pneumonia-persistent infiltrate since May.
Completed a course of prednisone and Augmentin in May.
Chest x-ray showed June 30, 2023 bilateral parenchymal opacities slight progression compared to prior on the right middle lobe.
Negative COVID
Negative influenza
Leukocytosis
Acute respiratory insufficiency
Conditions present prior admission:
History of bronchiectasis/ILD- Follows up with Dr. Brar
PFT 04/07/23: FVC 2.43/89%, FEV1 1.89/91%, ratio 70. TLC 4.7/110%, DLCO 7.17/39%.
on Spiriva/Symbicort
Alpha one AT [facility]. , not on augmentation.
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
History of paroxysmal atrial fibrillation
Chronic heart failure with preserved ejection fraction
Obstructive sleep apnea- Intolerant to CPAP
History of esophageal stricture status post dilation
Hypertension
History of breast cancer status post right mastectomy on anastrozole
Echocardiogram 03/09/2023: Reviewed, showed normal LVEF. EF 60-65%. Normal right ventricle size and function. No significant valvular abnormalities. Pulmonary hypertension 29-34 mmHg.
Assessment and plan:
Clinical picture suggest community-acquired pneumonia.
CT chest performed 07/02/2023: Worsening bilateral multifocal infiltrates/stable bronchiectasis. No pleural effusion.
Persistent bilateral infiltrates compared to 06/11/2023.
CT chest 06/11/2023:
1.). Stable moderately extensive bronchiectasis throughout both lungs
2). Stable 2 cm enlarged pretracheal lymph node at the level of the damaris.
3). New patchy areas of confluent airspace disease in the right middle lobe and lingula which may reflect pneumonia or mucoid impaction
Not on oxygen supplementation at rest.
Afebrile
Leukocytosis improved
Bibasilar crackles on exam, also improved.
Not bronchospastic currently
-
Continue current antibiotics: Ceftriaxone/doxycycline. She seems to be responding to these.
Cultures so far negative
Has not been able to produce sputum, ideally a sputum culture to evaluate for Pseudomonas infection may be helpful.
If there is no ongoing improvement then bronchoscopy with BAL will be necessary.
-
Recommend speech evaluation, has history of esophageal strictures in the past. She denies any swallowing problems.
SOFTWARE ENGINEER saw pt on 07/02 and GI consult recommended, which will be done as outpatient
Continue diet as per SOFTWARE ENGINEER, and pt to see GI in office
Continue aspiration precautions
-
Continue nebulizer therapy with prn albuterol
I will resume her Symbicort and Spiriva
Acapella device for secretion clearance.
Mucolytics
-
No indication for systemic corticosteroids, not bronchospastic on exam.
-
Continue oxygen supplementation. Wean down as able with goal SpO2 >90%
Not usually on supplemental oxygen.
Home oxygen assessment prior to discharge
-
Patient has history of CREST-not on any therapy. Follows up with Dr. Baca.
-
DVT prophylaxis: On NOAC
-
Will follow
-
Follow-up with Dr. Brar after DC
Patient was seen and evaluated on 07/03/2023
Subjective Data
-
Date of Service:
Date of Service: July 03, 2023
Chief Complaint: Pulmonary Follow Up (Bilateral pneumonia)
Subjective:
Patient seen and evaluated at bedside. She was on room air sitting in chair breathing comfortably. Still feels short of breath mainly with exertion. Has mucus but this is not worsening. She says that she has been wearing oxygen with sleep.
Denies chest pain, headache, fevers or chills.
Review of Systems
General: Other (Negative unless mentioned above)
Objective Data
Data Reviewed
Vital Signs / I&O / Oxygen:
Vital Signs
Temp Pulse Resp BP Pulse Ox
97.8 F 77 18 117/61 96
07/03/23 07:00 07/03/23 07:00 07/03/23 07:00 07/03/23 07:00 07/03/23 08:45
Intake and Output
07/02/23 07/03/23 07/04/23
06:59 06:59 06:59
Intake Total 1080 / 1080
Output Total 1100 / 1100 1000 / 1000
Balance -1100 / -1100 80 / 80
SaO2 96
Nasal Cannula flow liters per 2
minute
Physical Exam
General: Respiratory Distress (negative) and Comfortable
HEENT: Normocephalic and Anicteric
Cardiovascular: S1-S2 and Peripheral Edema (negative)
Respiratory: Wheeze (negative), Crackles (RLL), Rhonchi (negative), Non-Labored Respirations and Other (Inspiratory squeaks heard at right base)
GI: Soft and Non Distended
Neurology: AO x 3
Skin: Warm and Dry
Labs/Micro/Reports
Lab Data
07/03/23 04:58
07/03/23 04:58
Microbiology
07/01/23 00:35 Blood/Venous Blood Culture - Preliminary
No Growth in 48 hours- Final report to follow
07/01/23 00:01 Blood/Venous Blood Culture - Preliminary
No Growth in 48 hours- Final report to follow
06/30/23 20:28 Nasal Swab Influenza Types A & B (TORREY) - Final
Negative for Influenza A & B, NAAT
Negative results must be combined with clinical observations
and patient history.
Nucleic Acid Amplification test (NAAT)performed on the
[employer] platform.
--- NOTE | 2023-07-03 11:16 | W.PN.HOSP.TC ---
Addendum entered and electronically signed by Jaida Khalil MD 07/03/23 11:25:
Hx Esophageal Stenosis
-patient has similar sx as 10 years ago, feels some regurgitation with liquids, able to eat solids. Did will with ST. We discussed following up again closely with Dr. Fuentes after DC; would want to treat pulmonary issues prior to EGD
Original Note:
Today's Communication/Plan
-
continue IV Ceftriaxone/Doxy day 4
appreciate pulmonary
Assessment / Plan
Assessment / Plan
A/P: Patient is a 67y F with PMH significant for bronchiectasis / ILD and scleroderma / CREST syndrome who presents to ED complaining of fatigue, anorexia and general malaise x several days.
Patient is a 67y F with PMH significant for bronchiectasis, ILD, scleroderma / CREST syndrome who presents to ED complaining of generalized fatigue and weakness for the past few days. Patient states that she was seen in the ED here last month
with similar symptoms. She was diagnosed with L sided pneumonia (though it depends on the images you reference) and was treated with oral steroids and Augmentin. Patient states that her symptoms at that time fully resolved. She was feeling well
until this past Monday when she began to feel fatigue return. Patient notes that she spent the weekend with her grandchildren before each of these episodes.
She has a mild, non-productive cough. Low grade fever at home to 100.5, now afebrile. Poor appetite.
Bilateral Pneumonia
Bronchiectasis / ILD
- CXR shows increased pulmonary opacities in areas similar to those seen of CXR and CT scans done one month ago.
-continue cef/doxy
- Pulmonary evaluation appreciated
- Supportive care including mucolytics, nebs, etc.
- No wheeze noted, did not add steroids
discussed with pt potential CT scan of her lungs, to compare to prior, she is requesting we go ahead with this
CXR: Lungs: Overall worsening aeration of the lungs compared to the previous exam, increased bilateral pneumonia, now involving the right middle and upper lung zones as well as the left lower lobe posteriorly and the lingula
Paroxysmal Atrial Fibrillation
SVT
- EKG and tele show sinus rhythm with periods of sinus arrhythmia / SVT.
- Monitor on telemetry overnight.
- ? MAT secondary to pulmonary process.
-continue ROLLER LEVELER OPERATOR Diltiazem, Eliquis
Chronic HFpEF
- Patient is maintained on Lasix 80mg BID.
- No evidence of volume overload on exam.
- Continue usual PO Lasix dosing.
- Follow I/Os, daily weights, etc.
TAMMY
- Unfortunately, patient notes that she is not tolerant of CPAP therapy.
- Has machine at home but never uses it.
- Monitor SpO2 (has known nocturnal hypoxemia due to the above).
Benign Hypertension
- Stable. Continue outpatient medications.
Scleroderma
CREST Syndrome
Raynaud's
- Stable. Continue usual supportive medications.
History of Breast Cancer
- s/p R mastectomy.
- Continue anastrazole for ongoing therapy.
DVT Prophylaxis: On Eliquis
Code Status: Full
Anticipated Discharge: 24 - 48 hours
Subjective/Interval History
-
Date of Service: July 03, 2023
feels winded after taking a shower; previously was doing okay
able to eat and drink normally; after liquid some mild regurg that she felt 10 years ago with hx esophageal stenosis
Objective Data
-
Labs:
Laboratory Results
07/03/23
04:58
WBC 9.5
Hgb 12.9
Hct 37.7
Plt Count 243 D
Sodium 136
Potassium 3.4 L
Chloride 99
Carbon Dioxide 28
BUN 23 H
Creatinine 0.9
Glucose 94
Calcium 9.8
Vital Signs:
Vital Signs
Temp Pulse Resp BP Pulse Ox
97.8 F 85 16 117/61 96
07/03/23 07:00 07/03/23 08:15 07/03/23 08:15 07/03/23 07:00 07/03/23 08:45
I&O
07/02/23 07/03/23 07/04/23
06:59 06:59 06:59
Intake Total 1080 / 1080
Output Total 1100 / 1100 1000 / 1000
Balance -1100 / -1100 80 / 80
Review of Systems
-
History Source: Patient
All other systems: Reviewed and negative
Physical Exam
-
General: Well Developed, Well Nourished and No Apparent Distress
HEENT: Normocephalic, Atraumatic and Moist Mucous Membranes
Respiratory: Negative Wheezes, Rales (scattered rales. Lt>Rt, now resolved), Rhonchi or Accessory Resp Muscle Use
Cardiac: Regular Rhythm and S1/S2
GI: Soft, Nontender and Nondistended
Musculoskeletal: No Clubbing, No Cyanosis and No Edema
Neuro: Awake, Alert and Oriented
Psych: Calm
Data Reviewed
-
Diagnostic Radiology: Report Reviewed by me
Labs: Labs Reviewed by me
[2023-07-03] MEDS: TYLENOL 650 MG PO (12:28)
[2023-07-03 15:05] LABS: Magnesium 1.8 mg/dl (1.6-2.3)
--- NOTE | 2023-07-03 16:07 | CM ---
Patient seen bedside, just finished nebulizer treatment, initial assessment completed. Patient resides alone in a two story apartment, 13 steps, no elevator. Patient denies DME, VN, or SNF. 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 Patient confirms PCP
[facility], pharmacy [facility], confirms prescription coverage. Patient denies food insecurities. CM will continue to follow for discharge planning needs.
Plan; home no needs likely.
[2023-07-03] MEDS: ARIMIDEX 1 MG PO (21:10)
[2023-07-03] MEDS: LIPITOR 10 MG PO (21:10)
[2023-07-03] MEDS: TESSALON PERLES 200 MG PO (21:11)
[2023-07-04] VITALS (8 sets, daily range): BP systolic 102–144; BP diastolic 62–86; PULSE 82–102; O2SAT 93; BMI 31.0
[2023-07-04] MEDS: STERILE WATER FOR INJECTION 10 ML IV ×2 (00:20→20:37)
[2023-07-04] MEDS: ROCEPHIN 1000 MG IV ×2 (00:20→20:37)
[2023-07-04] MEDS: FLUSH (NSS) 2 FLUSH IV (00:23)
[2023-07-04] MEDS: TYLENOL 650 MG PO (03:30)
[2023-07-04 06:13] LABS: Blood Urea Nitrogen 22 mg/dl (7-17); Calcium 9.4 mg/dl (8.4-10.2); Carbon Dioxide 25 mmol/L (22-30); Chloride 101 mmol/L (98-107); Estimated Creatinine Clearance 55 ml/min; Glucose 89 mg/dl (70-99); Magnesium 1.6 mg/dl (1.6-2.3); Potassium 3.3 mmol/L (3.5-5.1); Sodium 135 mmol/L (135-145); eGFR > 60.00
[2023-07-04] MEDS: DUONEB 3 ML INH (08:04)
[2023-07-04] MEDS: ELIQUIS 5 MG PO ×2 (08:20→20:38)
[2023-07-04] MEDS: CARDIZEM CD 240 MG PO ×2 (08:20→20:36)
[2023-07-04] MEDS: LASIX 80 MG PO ×2 (08:21→20:37)
[2023-07-04] MEDS: VIBRAMYCIN 100 MG PO ×2 (08:21→20:37)
[2023-07-04] MEDS: MUCINEX 600 MG PO ×2 (08:21→20:37)
[2023-07-04] MEDS: KCL 20 MEQ PO (08:21)
[2023-07-04] MEDS: PROTONIX 40 MG PO (08:21)
[2023-07-04] MEDS: PROZAC 20 MG PO (08:22)
--- NOTE | 2023-07-04 10:08 | W.PN.PUL3 ---
Today's Communication / Plan
-
Continue current antibiotics - complete 7 days total
sputum culture if able
Continue Symbicort and Spiriva
Acapella device
Outpatient GI evaluation
O2 walk study prior to discharge
Plan for discharge home tomorrow (07/05) and I will arrange for outpatient office follow up with our office
Assessment
-
67-year-old woman with past medical history significant for bronchiectasis, interstitial lung disease, scleroderma/crest syndrome who presented to the emergency room complaining of generalized fatigue, weakness for the past few days. About a month
ago treated for pneumonia with steroids and Augmentin.
After dose antibiotics symptoms fully resolved.
About 3 days ago again started to feel fatigued and tired. She usually spends days with her grandchildren who are little.
Reports some coughing. Low-grade fevers.
Denies nausea vomiting or diarrhea.
Chest x-ray showed bilateral pulmonary infiltrates suggestive of pneumonia.
---
Bilateral pneumonia-persistent infiltrate since May.
Completed a course of prednisone and Augmentin in May.
Chest x-ray showed June 30, 2023 bilateral parenchymal opacities slight progression compared to prior on the right middle lobe.
Negative COVID
Negative influenza
Leukocytosis
Acute respiratory insufficiency
Conditions present prior admission:
History of bronchiectasis/ILD- Follows up with Dr. Brar
PFT 04/07/23: FVC 2.43/89%, FEV1 1.89/91%, ratio 70. TLC 4.7/110%, DLCO 7.17/39%.
on Spiriva/Symbicort
Alpha one AT [facility], not on augmentation.
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
History of paroxysmal atrial fibrillation
Chronic heart failure with preserved ejection fraction
Obstructive sleep apnea- Intolerant to CPAP
History of esophageal stricture status post dilation
Hypertension
History of breast cancer status post right mastectomy on anastrozole
Echocardiogram 03/09/2023: Reviewed, showed normal LVEF. EF 60-65%. Normal right ventricle size and function. No significant valvular abnormalities. Pulmonary hypertension 29-34 mmHg.
Assessment and plan:
Clinical picture suggest community-acquired pneumonia.
CT chest performed 07/02/2023: Worsening bilateral multifocal infiltrates/stable bronchiectasis. No pleural effusion.
Persistent bilateral infiltrates compared to 06/11/2023.
CT chest 06/11/2023:
1.). Stable moderately extensive bronchiectasis throughout both lungs
2). Stable 2 cm enlarged pretracheal lymph node at the level of the damaris.
3). New patchy areas of confluent airspace disease in the right middle lobe and lingula which may reflect pneumonia or mucoid impaction
Not on oxygen supplementation at rest.
Afebrile
Leukocytosis improved
Bibasilar crackles on exam, also improved.
Not bronchospastic currently
-
Continue current antibiotics: Ceftriaxone/doxycycline. She seems to be responding to these. Give 7 days total ABx
Cultures so far negative
Has not been able to produce sputum, ideally a sputum culture to evaluate for Pseudomonas infection may be helpful.
Considering patient has continued to improve, no need for bronchoscopy with BAL
-
Recommend speech evaluation, has history of esophageal strictures in the past. She denies any swallowing problems.
CERTIFIED SOCIAL WORKERS IN HEALTH CARE saw pt on 07/02 and GI consult recommended, which will be done as outpatient
Continue diet as per CERTIFIED SOCIAL WORKERS IN HEALTH CARE, and pt to see GI in office
Continue aspiration precautions
-
Continue nebulizer therapy with prn albuterol
I resumed her Symbicort and Spiriva
Acapella device for secretion clearance.
Mucolytics
-
No indication for systemic corticosteroids, not bronchospastic on exam and she does not have a Hx of COPD.
-
Continue oxygen supplementation. Wean down as able with goal SpO2 >90%
Not usually on supplemental oxygen.
Home oxygen assessment prior to discharge
-
Patient has history of CREST-not on any therapy. Follows up with Dr. Baca.
-
DVT prophylaxis: On NOAC
-
Disposition efforts - hopefully can be DC'd home tomorrow; PT recommends home health
Will follow
-
Follow-up with Dr. Brar after DC
Total time spent today was 35 minutes for this encounter. Time includes reviewing laboratory test/imaging results, reviewing pertinent medical records, obtaining and reviewing medical history, performing an appropriate exam, ordering medications,
tests and procedures. Time also includes documentation of this encounter, coordinating patient care and communicating with other healthcare professionals. Total time does not include separately billed tests performed on this date of service.
Subjective Data
-
Date of Service:
Date of Service: July 04, 2023
Chief Complaint: Pulmonary Follow Up (Bilateral pneumonia)
Subjective:
Patient seen today at bedside and she was sitting in chair in no acute distress. She was on room air breathing comfortably. Sister at bedside. Patient still has an occasional cough difficult to bring up phlegm. She has green nasal discharge.
She feels much better today with her breathing and there was no acute events reported from overnight. She is eager to go home but would like to wait at least until tomorrow to see how she feels. She denies headache, chest pain, abdominal pain,
fevers or chills.
Review of Systems
General: Other (Negative unless mentioned above)
Objective Data
Data Reviewed
Vital Signs / I&O / Oxygen:
Vital Signs
Temp Pulse Resp BP Pulse Ox
97.7 F 84 18 129/79 95
07/04/23 19:49 07/04/23 19:49 07/04/23 19:49 07/04/23 19:49 07/04/23 19:49
Intake and Output
07/03/23 07/04/23 07/05/23
06:59 06:59 06:59
Intake Total 1080 / 1080 720 / 720 840 / 840
Output Total 1000 / 1000 700 / 700 225 / 225
Balance 80 / 80 20 / 20 615 / 615
SaO2 95
Nasal Cannula flow liters per 2
minute
Physical Exam
General: Respiratory Distress (negative) and Comfortable
HEENT: Normocephalic and Anicteric
Cardiovascular: S1-S2 and Peripheral Edema (negative)
Respiratory: Wheeze (negative), Crackles (bilaterally (R>L)), Rhonchi (negative) and Non-Labored Respirations
GI: Soft, Non Distended, Non Tender and Normal Bowel Sounds
Neurology: AO x 3
Skin: Warm and Dry
Labs/Micro/Reports
Lab Data
07/03/23 04:58
07/04/23 04:58
Microbiology
07/01/23 00:35 Blood/Venous Blood Culture - Preliminary
No Growth in 72 hours- Final report to follow
07/01/23 00:01 Blood/Venous Blood Culture - Preliminary
No Growth in 72 hours- Final report to follow
--- NOTE | 2023-07-04 11:06 | W.PN.HOSP.TC ---
Addendum entered and electronically signed by Jaida Khalil MD 07/04/23 11:41:
reviewed CT results with GI which show esophagus filled with food. Dr. Cummings will see inpatient given slow transit.
Patient updated. reports she feels food has been moving slowly for a couple of months. She had reflux symptoms on my earlier visit now resolved, no longer wants IV pepcid
Original Note:
Today's Communication/Plan
-
see plan
Assessment / Plan
Assessment / Plan
A/P: Patient is a 67y F with PMH significant for bronchiectasis / ILD and scleroderma / CREST syndrome who presents to ED complaining of fatigue, anorexia and general malaise x several days.
Patient is a 67y F with PMH significant for bronchiectasis, ILD, scleroderma / CREST syndrome who presents to ED complaining of generalized fatigue and weakness for the past few days. Patient states that she was seen in the ED here last month
with similar symptoms. She was diagnosed with L sided pneumonia (though it depends on the images you reference) and was treated with oral steroids and Augmentin. Patient states that her symptoms at that time fully resolved. She was feeling well
until this past Monday when she began to feel fatigue return. Patient notes that she spent the weekend with her grandchildren before each of these episodes.
She has a mild, non-productive cough. Low grade fever at home to 100.5, now afebrile. Poor appetite.
Chest CT
IMPRESSION:
There is a significant increase in bilateral diffuse pneumonia when compared to the prior chest CT from 3 weeks ago.
This is most significant in the medial aspect of the left lung base.
Please note that the esophagus is filled with food debris during the exam, concerning for slow transit, gastroesophageal reflux disease, and possible aspiration. Could the patient have developed aspiration pneumonia since the prior CT?
Bilateral Pneumonia
Bronchiectasis / ILD
- CXR shows increased pulmonary opacities in areas similar to those seen of CXR and CT scans done one month ago.
- continue cef/doxy - patient is improving on this regimen. Abx day 5
- Pulmonary evaluation appreciated
- Supportive care including mucolytics, nebs PRN
- No wheeze noted, did not add steroids
-patient approaching discharge feels needs one more day. Will F/U how she does with PT and likely discharge tomorrow on 1-2 more days oral antibiotics
GERD
-CT with evidence of GERD. Patient states Prilosec helps with symptoms more than Protonix. She will ask someone to bring in Prilosec for her to take here
-one does of IV pepcid now
-patient has hx low-grade of narrowing Schatzki ring EGD 2016 s/p dilation
-she eloy follow up closely with her GI physician, Dr. Fuentes post discharge
Paroxysmal Atrial Fibrillation
SVT
- EKG and tele show sinus rhythm with periods of sinus arrhythmia / SVT.
- Monitor on telemetry overnight.
- ? MAT secondary to pulmonary process.
-continue CERTIFIED LOW VISION THERAPIST Diltiazem, Eliquis
Chronic HFpEF
- Patient is maintained on Lasix 80mg BID.
- No evidence of volume overload on exam.
- Continue usual PO Lasix dosing.
- Follow I/Os, daily weights, etc.
Hypokalemia
-replete
TAMMY
- Unfortunately, patient notes that she is not tolerant of CPAP therapy.
- Has machine at home but never uses it.
- Monitor SpO2 (has known nocturnal hypoxemia due to the above).
Benign Hypertension
- Stable. Continue outpatient medications.
Scleroderma
CREST Syndrome
Raynaud's
- Stable. Continue usual supportive medications.
History of Breast Cancer
- s/p R mastectomy.
- Continue anastrazole for ongoing therapy.
DVT Prophylaxis: On Eliquis
Code Status: Full
Anticipated Discharge: 24 - 48 hours
Subjective/Interval History
-
Date of Service: July 04, 2023
stating she is feeling the best she has yet felt but not ready to go home
using acapella, not coughing up a lot of mucus
feels can take deeper breaths
Objective Data
-
Labs:
Laboratory Results
07/04/23
04:58
Sodium 135
Potassium 3.3 L
Chloride 101
Carbon Dioxide 25
BUN 22 H
Creatinine 0.9
Glucose 89
Calcium 9.4
Vital Signs:
Vital Signs
Temp Pulse Resp BP Pulse Ox
98.5 F 79 18 102/62 95
07/04/23 07:55 07/04/23 08:20 07/04/23 08:08 07/04/23 08:20 07/04/23 08:08
I&O
07/03/23 07/04/23 07/05/23
06:59 06:59 06:59
Intake Total 1080 / 1080 720 / 720
Output Total 1000 / 1000 700 / 700
Balance 80 / 80 20 / 20
Review of Systems
-
History Source: Patient
All other systems: Reviewed and negative
Physical Exam
-
General: No Apparent Distress
HEENT: PERRLA
Respiratory: Negative Wheezes
Cardiac: Regular Rhythm and S1/S2
GI: Soft and Nontender
Musculoskeletal: No Edema
Skin: Warm and Dry; Negative Rash
Neuro: AO x 3
Psych: Calm
Data Reviewed
-
Diagnostic Radiology: Report Reviewed by me
Labs: Labs Reviewed by me
[2023-07-04] MEDS: MAGNESIUM SULFATE 100 IV (11:21)
[2023-07-04] MEDS: SYMBICORT 80/4.5 MCG INHALER INH (12:32)
[2023-07-04] MEDS: SPIRIVA RESPIMAT 2.5 MCG INH (12:32)
[2023-07-04] MEDS: KCL 160 MEQ IV (13:05)
--- NOTE | 2023-07-04 14:00 | CON.GI ---
Addendum entered and electronically signed by Esther Thompson Do, MD 07/04/23 15:02:
I saw and examined the patient.
The TOOL TROUBLE SHOOTER's note was reviewed and I agree with the note.
Comment: Delmi is a 67yo W with h/o scleroderma and pAfib on Eliquis with TAMMY who was admitted with SOB and PNA. Her grandkids recently sick. She also c/o chronic solid food dysphagia worsened over the past 2 wks to daily basis. No actual
impaction. She had EGD with dilation Dr Fuentes in 2015 with improvement. She has been on PPI daily basis. Vitals stable. crackles bases bilaterally, NTTP, NABS. Labs reviewed. CT chest reviewed with some food debri
Impression
- Dysphagia
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
- PNA
- TAMMY on CPAP
- Afib on AC
- Remote breast cancer
- HTN
- CHF
Recommendations
- C/w PPI
- C/w diet
- Anticipate 2 day hold of eliquis for OP EGD on 07/17 with possible dilation based upon pt preference and this would allow her to fully recover from PNA. My office will send message to Dr Venita Manzo for clearance
- Chew foods slowly
Above d/w hospitalist. Will sign off please call for questions
Original Note:
Consultation
-
Date/Time Consultation Requested: 07/04/23 1200
Date/Time Consultation Performed: 07/04/23 1245
Requesting Provider: Dr. Khalil
Performing Provider: Dr. Cummings/DENAE De Anda
Reason for Consultation: dysphagia
Medical History
Chief Complaint / HPI
Chief Complaint: fatigue and weakness
History of Present Illness:
67-year-old female with past medical history of crest syndrome/scleroderma, paroxysmal A-fib on Eliquis, obstructive sleep apnea intolerant to CPAP, history of Schatzki's ring dilatation 2016, GERD, breast cancer status post right mastectomy,
hypertension, CHF with recent pneumonia who presents to the emergency room with fatigue and weakness. The patient states that she was with her grandkids last week. She then started having a runny nose then scratchy sore throat. She then started
becoming weak and fatigued and had associated cough. She had a low-grade fever at home of 100.5. She presented to the emergency room and she was diagnosed with community-acquired pneumonia. She did have a CT of the chest that showed increase in
bilateral diffuse pneumonia with compared to prior chest CT 3 weeks ago. Esophagus filled with food debris concerning for slow transit, GERD and possible aspiration. We are asked to evaluate for the same. The patient states that she has had
issues with dysphagia similar to her symptoms back in 2016 when she was dilated. When she had the symptoms in 2016 and was dilated she had complete resolution of those symptoms. She states for the past few months she has been having a slowing of
her food including liquids going down. Her GERD symptoms are well-controlled on omeprazole 40 mg in the morning. She states if she misses a dose she does have reflux. She does not have issues where food completely gets stuck and requires forced
regurgitation. She has had no episodes of recent vomiting. She has no episodes of nocturnal regurgitation. She does not sleep in an elevated position. She denies any nausea, vomiting, melena, hematochezia, odynophagia or early satiety. She has
intentionally lost almost 60 pounds over the past year. Currently she is being treated for pneumonia. She states she is not on oxygen right at this moment however sometimes she uses it at night while she has been here in the hospital. She is also
on oral doxycycline while here.
Past Medical History
Past Medical History: Arrhythmias (Afib), CHF, GERD, HTN and Other (A-fib scleroderma, crest syndrome, obstructive sleep apnea, Schatzki's ring)
Past Surgical History: Other (Right lumpectomy, right mastectomy with reconstruction, rotator cuff repair, robotic right pyeloplasty, PVI ablation)
Social History
Tobacco: Non-Smoker
Alcohol: None
Drug: None
Family History
Family History: Other (No family history gastrointestinal malignancy or IBD. Father has a history of alpha 1 antitrypsin deficiency)
Allergies / Home Medications
Allergy/AdvReac Type Severity Reaction Status Date / Time
codeine Allergy Hives, Verified 06/30/23 20:12
Itching
Sulfa (Sulfonamide Allergy Hives, Verified 06/30/23 20:12
Antibiotics) itching
Sympathomimetic A Allergy Pharmacy Verified 06/30/23 20:12
*RETIRED-10/12/11 to Review
pseudoephedrine AdvReac jittery Verified 06/30/23 20:12
�Medication �Instructions �Recorded
omeprazole 40 mg capsule,delayed 40 mg PO DAILY Gastrointestinal 02/17/18
release issue
albuterol sulfate 90 mcg/actuation 2 puff inhalation R Q4HPRN PRN sob 06/07/18
aerosol inhaler
anastrozole 1 mg tablet 1 mg PO HS Cancer 12/07/19
fluoxetine 20 mg capsule 20 mg PO DAILY Depression 05/12/20
furosemide 40 mg tablet 80 mg PO BID Fluid 06/17/20
retention/Swelling
apixaban 5 mg tablet (Eliquis) 5 mg PO BID Blood clot 09/11/20
prevention/tx
diltiazem HCl 240 mg 240 mg PO BID Arrhythmia 09/11/20
capsule,extended release 24 hr
atorvastatin 10 mg tablet 10 mg PO HS High cholesterol 01/31/22
budesonide-formoterol HFA 80 2 puff inhalation BID 11/24/22
mcg-4.5 mcg/actuation aerosol Lung/Breathing Issues
inhaler (Symbicort)
tiotropium bromide 1.25 2 puff inhalation DAILY 11/24/22
mcg/actuation mist for inhalation Lung/Breathing Issues
(Spiriva Respimat)
budesonide-formoterol HFA 80 2 puff inhalation BID 07/01/23
mcg-4.5 mcg/actuation aerosol
inhaler (Symbicort)
guaifenesin 600 mg tablet, 600 mg PO BID PRN cough 07/01/23
extended release 12 hr (Mucinex)
Review of Systems
-
All other systems: A 12 pt ROS was Negative except as stated above in HPI
Vital Signs
Temp Pulse Resp BP Pulse Ox
97.7 F 74 20 140/69 93
07/04/23 11:37 07/04/23 11:37 07/04/23 11:37 07/04/23 11:37 07/04/23 11:37
Physical Exam
Exam
General: No Apparent Distress
HEENT: Normocephalic
Respiratory: Clear
Cardiac: Regular Rhythm
GI: Soft, Non Tender, Non Distended and Normal Bowel Sounds
Skin: Warm and Dry
Neuro: AO x 3
Psych: Calm
Results
WBC 9.5 10^3/uL (4.8-10.8) 07/03/23 04:58
Hgb 12.9 g/dL (12.0-16.0) 07/03/23 04:58
Hct 37.7 % (37.0-47.0) 07/03/23 04:58
MCV 85.5 fL (81.0-99.0) 07/03/23 04:58
Plt Count 243 10^3/uL (130-400) D 07/03/23 04:58
Absolute Neuts (auto) 6.4 10^3/uL (1.4-6.5) 07/03/23 04:58
Sodium 135 mmol/L (135-145) 07/04/23 04:58
Potassium 3.3 mmol/L (3.5-5.1) L 07/04/23 04:58
Chloride 101 mmol/L (98-107) 07/04/23 04:58
Carbon Dioxide 25 mmol/L (22-30) 07/04/23 04:58
BUN 22 mg/dl (7-17) H 07/04/23 04:58
Creatinine 0.9 mg/dL (0.6-1.0) 07/04/23 04:58
Calcium 9.4 mg/dl (8.4-10.2) 07/04/23 04:58
Total Bilirubin 1.2 mg/dl (0.2-1.3) 06/30/23 20:28
AST 24 U/L (14-36) 06/30/23 20:28
ALT 17 U/L (0-35) 06/30/23 20:28
Alkaline Phosphatase 127 U/L (38-126) H 06/30/23 20:28
Diagnostic Image Results:
CT Chest 07/02/23:
There is a significant increase in bilateral diffuse pneumonia when compared to the prior chest CT from 3 weeks ago.
This is most significant in the medial aspect of the left lung base.
Please note that the esophagus is filled with food debris during the exam, concerning for slow transit, gastroesophageal reflux disease, and possible aspiration. Could the patient have developed aspiration pneumonia since the prior CT?
Electronically signed by Kiley Coffman MD 07/02/2023 8:53 PM
CXR: 07/02/23
IMPRESSION:
Bilateral parenchymal opacities are again seen which could represent pneumonia with slight progression in the right middle lobe.
Electronically signed by Luis M Stacy MD 07/02/2023 10:06 AM
Prior GI Procedures:
EGD: 06/12/2015 ([facility]) - Low-grade of narrowing Schatzki ring. Dilated.
- A few gastric polyps. Biopsied.
- Normal examined duodenum.
- Random biopsies were obtained in the middle third of
the esophagus and in the lower third of the esophagus.
Colonoscopy: ([facility]) 01/17/2020 The entire examined colon appeared normal.
Colonoscopy 03/24/2016 ([facility]) - One 6 mm polyp in the transverse colon, removed with a
hot snare. Resected and retrieved.
Assessment / Plan
-
67-year-old female with past medical history of crest syndrome/scleroderma, paroxysmal A-fib on Eliquis, obstructive sleep apnea intolerant to CPAP, history of Schatzki's ring dilatation 2016, GERD, breast cancer status post right mastectomy,
hypertension, CHF with recent pneumonia who presents to the emergency room with fatigue and weakness. The patient states that she was with her grandkids last week. She then started having a runny nose then scratchy sore throat. She then started
becoming weak and fatigued and had associated cough. She had a low-grade fever at home of 100.5. She presented to the emergency room and she was diagnosed with community-acquired pneumonia. She did have a CT of the chest that showed increase in
bilateral diffuse pneumonia with compared to prior chest CT 3 weeks ago. Esophagus filled with food debris concerning for slow transit, GERD and possible aspiration. We are asked to evaluate for the same. Patient with dysphagia and slow transit of
food and liquids for few months. Similar symptoms when she had Schatzki's ring dilated in 2016. Reflux under control with omeprazole 40 mg in morning.
Impression:
Dysphagia-> slow passage of solid and liquids without need for forced regurgitation and tolerating diet.
History of Schatzki's ring in the past with dilatation 2015
History of crest syndrome/scleroderma
GERD
Community-acquired pneumonia currently being treated with ceftriaxone and doxycycline. Patient still needs to pass ambulation 02 walking eval. Not on O2 at rest currently.
Afib on Eliquis
Plan:
-Continue tx for PNA
-Continue Omeprazole 40 mg po daily
-Eventual EGD with Eliquis wash out. Timing to be determined by Dr. Cummings and patient. Inpatient vs outpatient.
Data Reviewed
-
Radiology: Report Reviewed by me
CT Scan: Report Reviewed by me
Old Records: Reviewed
-
-
Thank you for consultation and allowing me to participate in the patient's care. Please call the insulation extruder operator GI physician during the after hours with any questions or concerns.
[2023-07-04] MEDS: SYMBICORT 80/4.5 MCG INHALER 2 PUFF INH (19:41)
[2023-07-04] MEDS: ARIMIDEX 1 MG PO (20:37)
[2023-07-04] MEDS: LIPITOR 10 MG PO (20:37)
[2023-07-04] MEDS: TESSALON PERLES 200 MG PO (22:15)
[2023-07-05] VITALS (8 sets, daily range): BP systolic 59–144; BP diastolic 29–82; PULSE 75–98; BMI 30.9
[2023-07-05] MEDS: TYLENOL 650 MG PO (01:01)
[2023-07-05] MEDS: SYMBICORT 80/4.5 MCG INHALER 2 PUFF INH ×2 (07:42→19:34)
[2023-07-05] MEDS: SPIRIVA RESPIMAT 2.5 MCG 2 PUFF INH (07:42)
[2023-07-05 08:22] LABS: Blood Urea Nitrogen 20 mg/dl (7-17); Calcium 9.3 mg/dl (8.4-10.2); Carbon Dioxide 26 mmol/L (22-30); Chloride 101 mmol/L (98-107); Estimated Creatinine Clearance 62 ml/min; Glucose 87 mg/dl (70-99); Magnesium 1.9 mg/dl (1.6-2.3); Potassium 3.4 mmol/L (3.5-5.1); Sodium 135 mmol/L (135-145); eGFR > 60.00
[2023-07-05] MEDS: ELIQUIS 5 MG PO ×2 (09:06→20:22)
[2023-07-05] MEDS: PROZAC 20 MG PO (09:06)
[2023-07-05] MEDS: PROTONIX 40 MG PO (09:06)
[2023-07-05] MEDS: MUCINEX 600 MG PO ×2 (09:06→20:21)
[2023-07-05] MEDS: VIBRAMYCIN 100 MG PO ×2 (09:06→20:22)
[2023-07-05] MEDS: KCL 40 MEQ PO (09:21)
--- NOTE | 2023-07-05 10:29 | CM ---
Patient seen bedside, reports no needs to CM at this time. CM will continue to follow for all discharge planning needs.
Plan; home no needs likely when medically stable.
--- NOTE | 2023-07-05 10:43 | PN.CDI ---
CDI
- -
CDI:
Physician Documentation Request
Admit Date: 07/01/23 02:37
Dear Doctor Remi,
Patient admitted with pneumonia.
Na levels documented below:
Laboratory Tests
06/30/23 07/01/23 07/02/23
20:28 06:06 06:18
Sodium 130 L 131 L 131 L
Based on the above, could you clarify in the progress notes, the appropriate diagnosis, if significant, that supports the above abnormalities and additional evaluation, monitoring and/or treatment rendered:
Hyponatremia
Insignificant abnormal lab findings
Other
Use of terms such as suspected, likely, concern for, or probable (associated with a specific diagnosis that is being evaluated, monitored, or treated as if it exists) are acceptable and can be coded in the inpatient setting, when documented at the
time of discharge.
Thank you,
Ruma QUIROZ,RN,CCDS
CDI Specialist
Available via tiger text
Please use your independent medical judgment in providing your response.
--- NOTE | 2023-07-05 11:23 | PN.CDI ---
CDI
- -
CDI:
Physician Documentation Request
Admit Date: 07/01/23 02:37
Dear Doctor Remi,
Patient admitted with pneumonia.
On admission, WBC 13.7 and HR> 90.
Patient received IV Azithromycin, IV Rocephin and po Vibramycin.
Please clarify which of the following most accurately describes the status of the patient's infection:
Sepsis, POA
Pneumonia only
Other
Sepsis
- Systemic manifestations of infection, with 2 or more SIRS criteria which include:
- Fever >100.4 degrees F or hypothermia < 96.8 degrees F
- Leukocytosis - WBC > 12,000 or leukopenia - WBC < 4,000 or > 10% bands
- Tachycardia > 90 beats per minute
- Tachypnea - RR > 20 breaths per minute or PaCO2 , 32mmHg
Source: Merck Manual 2013
- Indicate the known or suspected organism
- Indicate the known or suspected underlying infection, such as pneumonia
Localized Infection Only, Without Systemic Illness
- indicate the site/source, such as pneumonia
Other
Use of terms such as suspected, likely, concern for, or probable (associated with a specific diagnosis that is being evaluated, monitored, or treated as if it exists) are acceptable and can be coded in the inpatient setting, when documented at the
time of discharge.
Thank you,
Ruma QUIROZ,RN,CCDS
CDI Specialist
Available via tiger text
Please use your independent medical judgment in providing your response.
--- NOTE | 2023-07-05 11:39 | W.PN.PUL3 ---
Today's Communication / Plan
-
Off O2 today at rest and with exertion - she continues to improve from pulmonary standpoint
Continue current antibiotics - complete 7 days total
sputum culture if able
Continue Symbicort and Spiriva
Acapella device
Outpatient GI evaluation
O2 walk study prior to discharge
I will arrange for outpatient office follow up with our office once she is ready for discharge
We will continue to briefly follow.
Assessment
-
67-year-old woman with past medical history significant for bronchiectasis, interstitial lung disease, scleroderma/crest syndrome who presented to the emergency room complaining of generalized fatigue, weakness for the past few days. About a month
ago treated for pneumonia with steroids and Augmentin.
After dose antibiotics symptoms fully resolved.
About 3 days ago again started to feel fatigued and tired. She usually spends days with her grandchildren who are little.
Reports some coughing. Low-grade fevers.
Denies nausea vomiting or diarrhea.
Chest x-ray showed bilateral pulmonary infiltrates suggestive of pneumonia.
---
Bilateral pneumonia-persistent infiltrate since May.
Completed a course of prednisone and Augmentin in May.
Chest x-ray showed June 30, 2023 bilateral parenchymal opacities slight progression compared to prior on the right middle lobe.
Negative COVID
Negative influenza
Leukocytosis
Acute respiratory insufficiency
Orthostatic positive - likely due to hypovolemia in the setting of reduced p.o. intake
Conditions present prior admission:
History of bronchiectasis/ILD- Follows up with Dr. Brar
PFT 04/07/23: FVC 2.43/89%, FEV1 1.89/91%, ratio 70. TLC 4.7/110%, DLCO 7.17/39%.
on Spiriva/Symbicort
[facility] AT [facility]. , not on augmentation.
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
History of paroxysmal atrial fibrillation
Chronic heart failure with preserved ejection fraction
Obstructive sleep apnea- Intolerant to CPAP
History of esophageal stricture status post dilation
Hypertension
History of breast cancer status post right mastectomy on anastrozole
Echocardiogram 03/09/2023: Reviewed, showed normal LVEF. EF 60-65%. Normal right ventricle size and function. No significant valvular abnormalities. Pulmonary hypertension 29-34 mmHg.
Assessment and plan:
Clinical picture suggest community-acquired pneumonia.
CT chest performed 07/02/2023: Worsening bilateral multifocal infiltrates/stable bronchiectasis. No pleural effusion.
Persistent bilateral infiltrates compared to 06/11/2023.
CT chest 06/11/2023:
1.). Stable moderately extensive bronchiectasis throughout both lungs
2). Stable 2 cm enlarged pretracheal lymph node at the level of the damaris.
3). New patchy areas of confluent airspace disease in the right middle lobe and lingula which may reflect pneumonia or mucoid impaction
Not on oxygen supplementation at rest.
Afebrile
Leukocytosis resolved
Bibasilar crackles on exam, now resolved as of 07/04
Not bronchospastic currently
-
Continue current antibiotics: Ceftriaxone/doxycycline. She seems to be responding to these. Give 7 days total ABx
Cultures so far negative
Has not been able to produce sputum, ideally a sputum culture to evaluate for Pseudomonas infection may be helpful.
Considering patient has continued to improve, no need for bronchoscopy with BAL
-
Recommend speech evaluation, has history of esophageal strictures in the past. She denies any swallowing problems.
BLUE PRINTS TRIMMER saw pt on 07/02 and GI consult recommended, which will be done as outpatient
Continue diet as per BLUE PRINTS TRIMMER, and pt to see GI in office
Continue aspiration precautions
-
Continue nebulizer therapy with prn albuterol
I resumed her Symbicort and Spiriva
Acapella device for secretion clearance.
Mucolytics
-
No indication for systemic corticosteroids, not bronchospastic on exam and she does not have a Hx of COPD.
-
Continue oxygen supplementation. Wean down as able with goal SpO2 >90%
Not usually on supplemental oxygen.
Home oxygen assessment prior to discharge
-
Patient has history of CREST-not on any therapy. Follows up with Dr. Baca.
-
DVT prophylaxis: On NOAC
-
Disposition efforts - hopefully can be DC'd home within next 24 hrs; PT recommends home health
Will briefly follow.
-
Follow-up with Dr. Brar after DC
Total time spent today was 35 minutes for this encounter. Time includes reviewing laboratory test/imaging results, reviewing pertinent medical records, obtaining and reviewing medical history, performing an appropriate exam, ordering medications,
tests and procedures. Time also includes documentation of this encounter, coordinating patient care and communicating with other healthcare professionals. Total time does not include separately billed tests performed on this date of service.
Subjective Data
-
Date of Service:
Date of Service: July 05, 2023
Chief Complaint: Pulmonary Follow Up (Bilateral pneumonia)
Subjective:
Patient seen today at bedside. Patient had weakness in her legs today upon standing and was found to be orthostatic positive. IV fluids were started. She still feels well with her breathing and is on room air breathing comfortably when I saw her.
She even walked to the bathroom today off of oxygen and she was not short of breath or have any chest pain. She currently denies headache, shortness of breath, chest pain, fevers or chills.
Review of Systems
General: Other (Negative unless mentioned above)
Objective Data
Data Reviewed
Vital Signs / I&O / Oxygen:
Vital Signs
Temp Pulse Resp BP Pulse Ox
97.5 F 87 18 102/82 93
07/05/23 15:12 07/05/23 15:12 07/05/23 15:12 07/05/23 15:12 07/05/23 15:12
Intake and Output
07/04/23 07/05/23 07/06/23
06:59 06:59 06:59
Intake Total 720 / 720 1320 / 1320
Output Total 700 / 700 1275 / 1275
Balance 20 / 20 45 / 45
SaO2 93
Nasal Cannula flow liters per 2
minute
Physical Exam
General: Respiratory Distress (negative) and Comfortable
HEENT: Normocephalic and Anicteric
Cardiovascular: S1-S2 and Peripheral Edema (negative)
Respiratory: Wheeze (negative), Crackles (negative), Rhonchi (negative) and Non-Labored Respirations
GI: Soft, Non Distended, Non Tender and Normal Bowel Sounds
Neurology: AO x 3
Skin: Warm and Dry
Labs/Micro/Reports
Lab Data
07/03/23 04:58
07/05/23 07:15
Microbiology
07/01/23 00:35 Blood/Venous Blood Culture - Preliminary
No Growth in 4 days- Final report to follow
07/01/23 00:01 Blood/Venous Blood Culture - Preliminary
No Growth in 4 days- Final report to follow
[2023-07-05] MEDS: NSS 1000 IV (14:58)
[2023-07-05] MEDS: CARDIZEM CD PO (15:05)
[2023-07-05] MEDS: LASIX PO ×2 (15:06→20:23)
--- NOTE | 2023-07-05 15:45 | CON.CAR ---
Addendum entered and electronically signed by Valdez Hobbs MD 07/05/23 21:58:
I saw and examined the patient.
The CHIEF METEOROLOGIST or PA's note was reviewed and I agree with the note.
Comment: General: Well developed, well nourished in NAD.
Neck: Supple, no JVD, HJR, carotids +2 B/L, no bruits bilaterally.
Heart: Non displaced PMI, RRR, no murmurs, No S3, S4, no rubs.
Lungs: Scattered rhonchi
Extremities: No clubbing, cyanosis or edema bilaterally.
Neuro: Grossly nonfocal, awake, alert and oriented x3.
Delmi has a history of atrial ablation status post pvi in 2020 on chronic Eliquis, chronic diastolic CHF, scleroderma with crest syndrome and secondary pulmonary hypertension, hypertension, interstitial lung disease, breast cancer, sleep apnea.
She was admitted with pneumonia. Cardiology consulted for orthostasis. She is currently getting IV fluids. no chest pain or shortness of breath.
She has received one liter of IV fluids and will discontinue ivf's. Cont to monitor for orthostasis and hold oral Lasix. May need to add Midodrine if remains orthostatic. No sinus symptoms of CHF. Will likely need Lasix on discharge.
Original Note:
Consultation
Consultation Request
Date/Time Consultation Requested: 07/05/23
Date/Time Consultation Performed: 07/05/23
Requesting Provider: Dr. Gomez
Performing Provider: Dr. Hobbs
Reason for Consultation: Orthostasis
Medical History
-
History of Present Illness:
Patient came to [facility] last Monday night with SOB and fatigue and has been admitted with PNA since then, cardiology has been consulted for orthostasis. Patient with a h/o scleroderma, CREST and PHTN. She takes a regimen of Lasix 80 mg PO BID for
volume control. The dose was increased Fall 2022 and she was feeling much better with more energy and less SOB with exercise. She reports that with increased activity and watching her diet she lost about 15 lbs in the last year. Then she visited her
son in [place] and had PNA that was treated as an outpatient with steroids and Augmentin in 05/2023. Patient seemed to recover, but after another visit with her grandchildren 2 weeks ago she started with fatigue and SOB and came to [facility] last Monday
and was admitted with PNA. She has been managed with IV antibiotics and thinks she is doing a bit better. She says that prior to admission she was essentially not eating or drinking like normal and was still taking usual doses of meds. Lasix 80 mg
PO BID was continued on admission and Cre was normal at 0.9. She started with leg weakness and heart racing with standing and orthostatic VS have been positive for the last 3 days. She is receiving her first liter of IVFs now.
PMH:
Paroxysmal Afib
s/p PVI 2020
Chronic Eliquis OAC
Chronic HFpEF
Secondary PHTN
HTN
ILD
Scleroderma
CREST syndrome
ILD
FH of alpha-1 antitrypsin deficiency
Right breast CA s/p mastectomy without XRT or chemotherapy
TAMMY
Past Medical History
Past Medical History: Other (in HPI)
Past Surgical History: Cardiac (PVI 09/11/20), Gynecological (lumpectomy), Orthopedic and Urological (right ureteral stent and right pyeloplasty 2022)
Social History
Tobacco: Non-Smoker
Alcohol: None
Drug: None
Living: Alone
Employment: Employed
Family History
Family History: Cancer and Other (father with alpha-1 antitrypsin)
Allergies / Home Medications
Allergy/AdvReac Type Severity Reaction Status Date / Time
codeine Allergy Hives, Verified 06/30/23 20:12
Itching
Sulfa (Sulfonamide Allergy Hives, Verified 06/30/23 20:12
Antibiotics) itching
Sympathomimetic A Allergy Pharmacy Verified 06/30/23 20:12
*RETIRED-10/12/11 to Review
pseudoephedrine AdvReac jittery Verified 06/30/23 20:12
�Medication �Instructions �Recorded �Confirmed �Type
omeprazole 40 mg capsule,delayed 40 mg PO DAILY Gastrointestinal 02/17/18 07/01/23 History
release issue
albuterol sulfate 90 mcg/actuation 2 puff inhalation R Q4HPRN PRN sob 06/07/18 07/01/23 History
aerosol inhaler
anastrozole 1 mg tablet 1 mg PO HS Cancer 12/07/19 07/01/23 History
fluoxetine 20 mg capsule 20 mg PO DAILY Depression 05/12/20 07/01/23 History
furosemide 40 mg tablet 80 mg PO BID Fluid 06/17/20 07/01/23 History
retention/Swelling
apixaban 5 mg tablet (Eliquis) 5 mg PO BID Blood clot 09/11/20 07/01/23 History
prevention/tx
diltiazem HCl 240 mg 240 mg PO BID Arrhythmia 09/11/20 07/01/23 History
capsule,extended release 24 hr
atorvastatin 10 mg tablet 10 mg PO HS High cholesterol 01/31/22 07/01/23 History
budesonide-formoterol HFA 80 2 puff inhalation BID 11/24/22 07/01/23 History
mcg-4.5 mcg/actuation aerosol Lung/Breathing Issues
inhaler (Symbicort)
tiotropium bromide 1.25 2 puff inhalation DAILY 11/24/22 07/01/23 History
mcg/actuation mist for inhalation Lung/Breathing Issues
(Spiriva Respimat)
budesonide-formoterol HFA 80 2 puff inhalation BID 07/01/23 07/01/23 History
mcg-4.5 mcg/actuation aerosol
inhaler (Symbicort)
guaifenesin 600 mg tablet, 600 mg PO BID PRN cough 07/01/23 07/01/23 History
extended release 12 hr (Mucinex)
Review of Systems
-
History Source: Patient
All other systems: Negative unless noted
Physical Exam
Vital Signs
Temp Pulse Resp BP Pulse Ox
97.5 F 87 18 102/82 93
07/05/23 15:12 07/05/23 15:12 07/05/23 15:12 07/05/23 15:12 07/05/23 15:12
GEN: NAD. AAOx3
HEENT: EOMI, MMM
LUNGS: B/L rales, no wheeze
CV: Reg with ectopy, S1/S2, no murmur
ABD: soft, BS+, NT, ND
EXT: No clubbing, cyanosis, lesions or edema B/L
NEURO: Gross non-focal
SKIN: Warm, dry and pink. No rash
Lab Results
07/03/23 04:58
07/05/23 07:15
Troponin I < 0.012 ng/ml 07/01/23 00:01
Impression / Plan
-
PCP: Dr. Palencia
Cardiology: Dr. Venita Herbert
Impression:
Admitted with CAP 06/30/23
Orthostasis, symptomatic
Dysphagia
Paroxysmal Afib
s/p PVI 2020
Chronic Eliquis OAC
Chronic HFpEF
Secondary PHTN
HTN
ILD
Scleroderma
CREST syndrome
ILD
FH of alpha-1 antitrypsin deficiency
Right breast CA s/p mastectomy without XRT or chemotherapy
TAMMY, intolerant of PAP therapy
Echo 04/14/20: EF 65%, mild MR, mild TR with PAP 30 mmHg
Echo 03/09/23: EF 60-65%, mild MR, mild aortic insufficiency, mild eccentric TR with PAP 29-34 mmHg
Plan:
-Patient came to [facility] last Monday night with SOB and fatigue and has been admitted with PNA since then, cardiology has been consulted for orthostasis. Patient with a h/o scleroderma, CREST and PHTN. She takes a regimen of Lasix 80 mg PO BID for
volume control. The dose was increased Fall 2022 and she was feeling much better with more energy and less SOB with exercise. She reports that with increased activity and watching her diet she lost about 15 lbs in the last year. Then she visited her
son in [place] and had PNA that was treated as an outpatient with steroids and Augmentin in 05/2023. Patient seemed to recover, but after another visit with her grandchildren 2 weeks ago she started with fatigue and SOB and came to [facility] last Monday
and was admitted with PNA. She has been managed with IV antibiotics and thinks she is doing a bit better. She says that prior to admission she was essentially not eating or drinking like normal and was still taking usual doses of meds. Lasix 80 mg
PO BID was continued on admission and Cre was normal at 0.9. She started with leg weakness and heart racing with standing and orthostatic VS have been positive for the last 3 days. She is receiving her first liter of IVFs now.
-Agree with NSS 1 L now, but will cancel the 2nd liter IVFs.
-Outpatient dose of Lasix 80 mg PO BID is now on hold.
-Follow daily weights
-Will liberalize fluid intake for the next 24 hours, diet order changed.
-Will re-evaluate in the AM and see if 2nd liter of IVFs needed and if Lasix can be restarted. Patient will need to be on some dose of Lasix when she is discharged.
-Cont usual dose of Eliquis 5 mg BID, she can hold Eliquis for 2 days prior to planned outpatient EGD and then resume post-EGD.
-Patient with known paroxysmal Afib. Patient with Afib on admission and is now in SR with PACs. ECG reviewed by me with SR and PACs. Cont usual dose of Cardizem CD 240 mg BID
--- NOTE | 2023-07-05 16:33 | W.PN.HOSP.TC ---
Today's Communication/Plan
-
All discussed with the patient the nurse
Assessment / Plan
Assessment / Plan
Physical exam:
General: Awake, alert and oriented x3, not in distress and holds appropriate conversation.
HEENT: No active discharge, ecchymosis or bruising, moist lips, tongue and mucous membrane.
Eyes: No discharge or red conjunctiva, no nystagmus, pupils are reactive and equal
Neck:Supple, no JVD no bruit no goiter.
Respiratory: Normal AP contour and diameter, normal chest wall movement, normal respiratory effort, no respiratory distress,
Lungs: Good air entry bilaterally, no wheezing or rhonchi, no rales or crackles
Heart: S1, S2 regular, normal rate, no added sound.
Gastrointestinal: Positive bowel sounds, soft, nontender, no guarding or rigidity or organomegaly
Musculoskeletal: , no chest wall abnormality or tenderness. All joints and extremities have good range of motion, no muscle tenderness or any joint swelling or tenderness.
Extremities: Mild lower extremity pitting edema, good peripheral pulses, good range of motion
Skin: Warm and dry, no ulceration, normal color.
Neurological: Awake, alert and oriented x3, no facial droop, speech clear and comprehensive, good muscle tone, normal sensory and motor function
Psychiatric: Normal mood, normal thought and judgment, normal affect,
A/P: Patient is a 67y F with PMH significant for bronchiectasis / ILD and scleroderma / CREST syndrome who presents to ED complaining of fatigue, anorexia and general malaise x several days.
Patient is a 67y F with PMH significant for bronchiectasis, ILD, scleroderma / CREST syndrome who presents to ED complaining of generalized fatigue and weakness for the past few days. Patient states that she was seen in the ED here last month
with similar symptoms. She was diagnosed with L sided pneumonia (though it depends on the images you reference) and was treated with oral steroids and Augmentin. Patient states that her symptoms at that time fully resolved. She was feeling well
until this past Monday when she began to feel fatigue return. Patient notes that she spent the weekend with her grandchildren before each of these episodes.
She has a mild, non-productive cough. Low grade fever at home to 100.5, now afebrile. Poor appetite.
Chest CT
IMPRESSION:
There is a significant increase in bilateral diffuse pneumonia when compared to the prior chest CT from 3 weeks ago.
This is most significant in the medial aspect of the left lung base.
Please note that the esophagus is filled with food debris during the exam, concerning for slow transit, gastroesophageal reflux disease, and possible aspiration. Could the patient have developed aspiration pneumonia since the prior CT?
Orthostatic hypotension:
Possibly related to dehydration from the active infection also being on Lasix 80 mg twice daily and she is not drinking enough fluids other medication including Cardizem need to be considered.
Given his pressure is on the low side.
His Cardizem and Lasix put on hold
Look to the recent echo her EF around 55%
Will give some normal saline at 80 mill per hour
Cardiology consult for recommendation regarding his dizziness and Cardizem and high dose of the diuretic.
Orthostatic vital sign check And show orthostatic hypotension, the second time she did not have symptoms and was able to ambulate well.
Because of this finding we will keep overnight
Bilateral Pneumonia
Bronchiectasis / ILD
- CXR shows increased pulmonary opacities in areas similar to those seen of CXR and CT scans done one month ago.
- continue cef/doxy - patient is improving on this regimen. Abx day 5/7
- Pulmonary evaluation appreciated
- Supportive care including mucolytics, nebs PRN
- No wheeze noted, did not add steroids
-patient approaching discharge feels needs one more day. Will F/U how she does with PT and likely discharge tomorrow on 1-2 more days oral antibiotics
GERD
-CT with evidence of GERD. Patient states Prilosec helps with symptoms more than Protonix. She will ask someone to bring in Prilosec for her to take here
-one does of IV pepcid now
-patient has hx low-grade of narrowing Schatzki ring EGD 2016 s/p dilation
-she eloy follow up closely with her GI physician, Dr. Fuentes post discharge
Paroxysmal Atrial Fibrillation
SVT
- EKG and tele show sinus rhythm with periods of sinus arrhythmia / SVT.
- Monitor on telemetry overnight.
- ? MAT secondary to pulmonary process.
-continue ROTATING EQUIPMENT SPECIALIST Diltiazem, Eliquis
Chronic HFpEF
- Patient is maintained on Lasix 80mg BID which is we put on hold as mentioned above and give some IV fluid she looks very dry
- No evidence of volume overload on exam.
- Continue usual PO Lasix dosing.
- Follow I/Os, daily weights, etc.
Hypokalemia
-replete
TAMMY
- Unfortunately, patient notes that she is not tolerant of CPAP therapy.
- Has machine at home but never uses it.
- Monitor SpO2 (has known nocturnal hypoxemia due to the above).
Benign Hypertension
- Stable. Continue outpatient medications.
Scleroderma
CREST Syndrome
Raynaud's
- Stable. Continue usual supportive medications.
History of Breast Cancer
- s/p R mastectomy.
- Continue anastrazole for ongoing therapy.
DVT Prophylaxis: On Eliquis
Code Status: Full
Anticipated Discharge: 24 - 48 hours
Subjective/Interval History
-
Date of Service: July 05, 2023
Seen and examined, awake and alert, feels weak and lethargic and feels her legs are weak specially when she stands up and have orthostatic been positive.
Still coughing which is dry denies any fever or chill or cough or congestion, no headache or vision change no syncope or palpitation, deny dizziness .
Objective Data
-
Labs:
Laboratory Results
07/05/23
07:15
Sodium 135
Potassium 3.4 L
Chloride 101
Carbon Dioxide 26
BUN 20 H
Creatinine 0.8
Glucose 87
Calcium 9.3
Vital Signs:
Vital Signs
Temp Pulse Resp BP Pulse Ox
97.5 F 87 18 102/82 93
07/05/23 15:12 07/05/23 15:12 07/05/23 15:12 07/05/23 15:12 07/05/23 15:12
I&O
07/04/23 07/05/23 07/06/23
07:59 07:59 07:59
Intake Total 720 / 720 1320 / 1320
Output Total 700 / 700 1275 / 1275
Balance 20 45 / 45
Review of Systems
-
All other systems: Reviewed and negative
[2023-07-05] MEDS: TESSALON PERLES 200 MG PO (19:19)
[2023-07-05] MEDS: CARDIZEM CD 240 MG PO (20:21)
[2023-07-05] MEDS: LIPITOR 10 MG PO (20:21)
[2023-07-05] MEDS: STERILE WATER FOR INJECTION 10 ML IV (20:22)
[2023-07-05] MEDS: ROCEPHIN 1000 MG IV (20:22)
[2023-07-05] MEDS: ARIMIDEX 1 MG PO (20:22)
[2023-07-06] VITALS (7 sets, daily range): BP systolic 114–140; BP diastolic 46–90; PULSE 69–95; O2SAT 94–96; BMI 31.5
[2023-07-06] MEDS: NSS 1000 IV (03:40)
[2023-07-06 06:56] LABS: Blood Urea Nitrogen 19 mg/dl (7-17); Calcium 9.6 mg/dl (8.4-10.2); Carbon Dioxide 21 mmol/L (22-30); Chloride 106 mmol/L (98-107); Estimated Creatinine Clearance 71 ml/min; Glucose 88 mg/dl (70-99); Sodium 137 mmol/L (135-145); eGFR > 60.00
[2023-07-06] MEDS: SPIRIVA RESPIMAT 2.5 MCG 2 PUFF INH (07:52)
[2023-07-06] MEDS: SYMBICORT 80/4.5 MCG INHALER 2 PUFF INH ×2 (07:53→20:01)
[2023-07-06] MEDS: LASIX PO ×2 (09:01→11:27)
[2023-07-06] MEDS: ELIQUIS 5 MG PO ×2 (09:01→20:00)
[2023-07-06] MEDS: PROZAC 20 MG PO (09:01)
[2023-07-06] MEDS: PROTONIX 40 MG PO (09:01)
[2023-07-06] MEDS: MUCINEX 600 MG PO ×2 (09:02→19:59)
[2023-07-06] MEDS: CARDIZEM CD 240 MG PO ×2 (09:02→20:00)
[2023-07-06] MEDS: VIBRAMYCIN 100 MG PO ×2 (09:02→19:59)
--- NOTE | 2023-07-06 11:03 | CM ---
Patient seen bedside, reports she is feeling better today, unsure if she will go home today. CM will watch for home O2 needs. CM will continue to follow for all discharge planning needs.
Plan; home no needs, watch for O2 needs.
--- NOTE | 2023-07-06 11:29 | W.PN.CARDCBS ---
Addendum entered and electronically signed by Gwendolyn Pickett DO 07/06/23 12:45:
I saw and examined the patient.
The Classifier Tender's note was reviewed and I agree with the note.
Comment: Patient seen and examined overall feeling better and anxious to return home
GEN: Appears frail, chronically ill. NAD
HEENT:mmm
LUNGS: Bronchovesicular breath sounds, clear
CV: Regular, positive S1-S2. 2 out of 6 systolic murmur
ABD: ND, positive bowel sounds
EXT: No edema B/L
Plan:
Dysphagia with CT of the chest noting food debris
-GI consulted with suspicion of scleroderma related motility disorder and possible Schatzki's ring for outpatient EGD July 17
-From a cardiac standpoint she may proceed with procedure as planned. Would hold Eliquis 2 days before and day of procedure. Resume as able following procedure
Bilateral CAP 06/30/2023 with underlying bronchiectasis/ILD
-Antibiotics per primary
-Supportive care
History of chronic heart failure with preserved ejection fraction maintained on Lasix 80 mg twice daily as an outpatient who came in dehydrated with poor oral intake secondary to dysphagia
-Status post IV fluid resuscitation
-Will resume Lasix at lower dose 80 mg daily. We reviewed heart failure monitoring
PAF/MAT on Eliquis anticoagulation
-Continue current therapy including diltiazem and Eliquis
Outpatient cardiac follow-up to be arranged
Will sign off, recall if needed
Original Note:
Today's Communication / Plan
-
Stop IVFs
Restart Lasix at a lower dose of 80 mg PO daily in AM
Helping to reschedule missed cardiology office visit
Impression / Plan
-
PCP: Dr. Palencia
Cardiology: Dr. Venita Herbert
Impression:
Admitted with CAP 06/30/23
Orthostasis, symptomatic
Dysphagia
Paroxysmal Afib
s/p PVI 2020
Chronic Eliquis OAC
Chronic HFpEF
Secondary PHTN
HTN
ILD
Scleroderma
CREST syndrome
ILD
FH of alpha-1 antitrypsin deficiency
Right breast CA s/p mastectomy without XRT or chemotherapy
TAMMY, intolerant of PAP therapy
Echo 04/14/20: EF 65%, mild MR, mild TR with PAP 30 mmHg
Echo 03/09/23: EF 60-65%, mild MR, mild aortic insufficiency, mild eccentric TR with PAP 29-34 mmHg
Plan:
-Weight up 3 lbs overnight, but no increase in LE edema. Patient is less symptomatic with orthostatic VS which are also improved.
-Patient received 1 L IVFs 07/05/23 overnight and another 400 ml into 07/06/23 AM. Stopped IVFs 07/06/23 AM.
-Restart Lasix 80 mg PO daily 07/07/23
-Change diet back to salt and fluid restricted
-Cont usual dose of Eliquis 5 mg BID, she can hold Eliquis for 2 days prior to planned outpatient EGD and then resume post-EGD.
-Patient with known paroxysmal Afib. Patient with Afib on admission and is now in SR with PACs. ECG reviewed by me with SR and PACs. Cont usual dose of Cardizem CD 240 mg BID.
-Patient was scheduled to see Dr. Venita Herbert in the office 07/04/23 and is upset that she missed her appt due to PNA. Will arrange for a hospital f/u appt with [employer] SANDER OFFBEARER/PA on a day when Dr. Nathan is in the office and then arrange for a Dr. Nathan visit
3 months after that due to h/o PTHN, CREST etc.
HPI: Patient came to [facility] last Monday night with SOB and fatigue and has been admitted with PNA since then, cardiology has been consulted for orthostasis. Patient with a h/o scleroderma, CREST and PHTN. She takes a regimen of Lasix 80 mg PO BID for
volume control. The dose was increased Fall 2022 and she was feeling much better with more energy and less SOB with exercise. She reports that with increased activity and watching her diet she lost about 15 lbs in the last year. Then she visited her
son in [place] and had PNA that was treated as an outpatient with steroids and Augmentin in 05/2023. Patient seemed to recover, but after another visit with her grandchildren 2 weeks ago she started with fatigue and SOB and came to [facility] last Monday
and was admitted with PNA. She has been managed with IV antibiotics and thinks she is doing a bit better. She says that prior to admission she was essentially not eating or drinking like normal and was still taking usual doses of meds. Lasix 80 mg
PO BID was continued on admission and Cre was normal at 0.9. She started with leg weakness and heart racing with standing and orthostatic VS have been positive for the last 3 days. She is receiving her first liter of IVFs now.
Progress Note - Cvt Rn
Subjective
Date of Service: July 06, 2023
Less leg weakness with standing today
Objective
Labs:
07/03/23 04:58
07/06/23 05:29
Labs
Hgb 12.9 g/dL (12.0-16.0) 07/03/23 04:58
Hct 37.7 % (37.0-47.0) 07/03/23 04:58
Plt Count 243 10^3/uL (130-400) D 07/03/23 04:58
Sodium 137 mmol/L (135-145) 07/06/23 05:29
Potassium 4.0 mmol/L (3.5-5.1) 07/06/23 05:29
BUN 19 mg/dl (7-17) H 07/06/23 05:29
Creatinine 0.7 mg/dL (0.6-1.0) 07/06/23 05:29
Glucose 88 mg/dl (70-99) 07/06/23 05:29
Vital Signs and I&O:
Vital Signs
Temp Pulse Resp BP Pulse Ox
97.9 F 78 16 134/66 96
07/06/23 07:55 07/06/23 08:06 07/06/23 08:06 07/06/23 07:55 07/06/23 08:30
Vital Signs
Temp Pulse Resp BP Pulse Ox
97.9 F 78 16 134/66 96
07/06/23 07:55 07/06/23 08:06 07/06/23 08:06 07/06/23 07:55 07/06/23 08:30
Intake & Output
07/04/23 07/05/23 07/06/23 07/07/23
06:59 06:59 06:59 06:59
Intake Total 720 / 720 1320 / 1320 600 / 600 1440 / 1440
Output Total 700 / 700 1275 / 1275 200 / 200 250 / 250
Balance 20 / 20 45 / 45 400 / 400 1190 / 1190
Physical Exam
Physical Exam
GEN: NAD. AAOx3
HEENT: EOMI, MMM
LUNGS: B/L rales, no wheeze
CV: SR on tele
ABD: ND
EXT: No edema B/L
NEURO: Gross non-focal
SKIN: No rash
--- NOTE | 2023-07-06 12:05 | W.PN.PUL3 ---
Today's Communication / Plan
-
Off O2 today at rest and with exertion - she continues to improve from pulmonary standpoint
Continue current antibiotics - complete 7 days total
sputum culture if able
Continue Symbicort and Spiriva
Acapella device
Outpatient GI evaluation
O2 walk study tomorrow
I will arrange for outpatient office follow up with our office once she is ready for discharge
We will continue to briefly follow.
Assessment
-
67-year-old woman with past medical history significant for bronchiectasis, interstitial lung disease, scleroderma/crest syndrome who presented to the emergency room complaining of generalized fatigue, weakness for the past few days. About a month
ago treated for pneumonia with steroids and Augmentin.
After dose antibiotics symptoms fully resolved.
About 3 days ago again started to feel fatigued and tired. She usually spends days with her grandchildren who are little.
Reports some coughing. Low-grade fevers.
Denies nausea vomiting or diarrhea.
Chest x-ray showed bilateral pulmonary infiltrates suggestive of pneumonia.
---
Bilateral pneumonia-persistent infiltrate since May.
Completed a course of prednisone and Augmentin in May.
Chest x-ray showed June 30, 2023 bilateral parenchymal opacities slight progression compared to prior on the right middle lobe.
Negative COVID
Negative influenza
Leukocytosis
Acute respiratory insufficiency
Orthostatic positive - likely due to hypovolemia in the setting of reduced p.o. intake - orthostatic symptoms now resolved
Conditions present prior admission:
History of bronchiectasis/ILD- Follows up with Dr. Brar
PFT 04/07/23: FVC 2.43/89%, FEV1 1.89/91%, ratio 70. TLC 4.7/110%, DLCO 7.17/39%.
on Spiriva/Symbicort
Alpha one AT [facility]. , not on augmentation.
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
History of paroxysmal atrial fibrillation
Chronic heart failure with preserved ejection fraction
Obstructive sleep apnea- Intolerant to CPAP
History of esophageal stricture status post dilation
Hypertension
History of breast cancer status post right mastectomy on anastrozole
Echocardiogram 03/09/2023: Reviewed, showed normal LVEF. EF 60-65%. Normal right ventricle size and function. No significant valvular abnormalities. Pulmonary hypertension 29-34 mmHg.
Assessment and plan:
Clinical picture suggest community-acquired pneumonia.
CT chest performed 07/02/2023: Worsening bilateral multifocal infiltrates/stable bronchiectasis. No pleural effusion.
Persistent bilateral infiltrates compared to 06/11/2023.
CT chest 06/11/2023:
1.). Stable moderately extensive bronchiectasis throughout both lungs
2). Stable 2 cm enlarged pretracheal lymph node at the level of the damaris.
3). New patchy areas of confluent airspace disease in the right middle lobe and lingula which may reflect pneumonia or mucoid impaction
Not on oxygen supplementation at rest.
Afebrile
Leukocytosis resolved
Bibasilar crackles on exam, now resolved as of 07/04
Not bronchospastic currently
-
Continue current antibiotics: Ceftriaxone/doxycycline. She seems to be responding to these. Give 7 days total ABx
Cultures so far negative
Has not been able to produce sputum, ideally a sputum culture to evaluate for Pseudomonas infection may be helpful.
Considering patient has continued to improve, no need for bronchoscopy with BAL
-
Recommend speech evaluation, has history of esophageal strictures in the past. She denies any swallowing problems.
LEGAL PROCESS SPECIALIST saw pt on 07/02 and GI consult recommended, which will be done as outpatient
Continue diet as per LEGAL PROCESS SPECIALIST, and pt to see GI in office
Continue aspiration precautions
-
Continue nebulizer therapy with prn albuterol
I resumed her Symbicort and Spiriva
Acapella device for secretion clearance.
Mucolytics
-
No indication for systemic corticosteroids, not bronchospastic on exam and she does not have a Hx of COPD.
-
Continue oxygen supplementation. Wean down as able with goal SpO2 >90%
Not usually on supplemental oxygen.
Home oxygen assessment prior to discharge
-
Patient has history of CREST-not on any therapy. Follows up with Dr. Baca.
-
DVT prophylaxis: On NOAC
-
Disposition efforts - hopefully can be DC'd home by tomorrow; PT recommends home health
Will briefly follow.
-
Follow-up with Dr. Brar after DC
Total time spent today was 35 minutes for this encounter. Time includes reviewing laboratory test/imaging results, reviewing pertinent medical records, obtaining and reviewing medical history, performing an appropriate exam, ordering medications,
tests and procedures. Time also includes documentation of this encounter, coordinating patient care and communicating with other healthcare professionals. Total time does not include separately billed tests performed on this date of service.
Subjective Data
-
Date of Service:
Date of Service: July 06, 2023
Chief Complaint: Pulmonary Follow Up (Bilateral pneumonia)
Subjective:
Patient seen today at bedside. She says she feels good. She was nervous to leave to go home today because she she did not feel well yesterday. She is eager to go home tomorrow. She is on room air breathing comfortably all about to work with
occupational therapy. She currently denies any weakness or lightheadedness upon standing, denies shortness of breath at rest, denies chest pain, fevers or chills.
Review of Systems
General: Other (Negative unless mentioned above)
Objective Data
Data Reviewed
Vital Signs / I&O / Oxygen:
Vital Signs
Temp Pulse Resp BP Pulse Ox
98.1 F 74 18 134/67 93
07/06/23 15:28 07/06/23 15:28 07/06/23 15:28 07/06/23 15:28 07/06/23 15:28
Intake and Output
07/05/23 07/06/23 07/07/23
06:59 06:59 06:59
Intake Total 1320 / 1320 600 / 600 1440 / 1440
Output Total 1275 / 1275 200 / 200 250 / 250
Balance 45 / 45 400 / 400 1190 / 1190
SaO2 93
Nasal Cannula flow liters per 2
minute
Physical Exam
General: Respiratory Distress (negative) and Comfortable
HEENT: Normocephalic and Anicteric
Cardiovascular: S1-S2 and Peripheral Edema (negative)
Respiratory: Clear, Wheeze (negative), Crackles (negative), Rhonchi (negative) and Non-Labored Respirations
GI: Soft, Non Distended, Non Tender and Normal Bowel Sounds
Neurology: AO x 3
Skin: Warm and Dry
Labs/Micro/Reports
Lab Data
07/03/23 04:58
07/06/23 05:29
Microbiology
07/01/23 00:35 Blood/Venous Blood Culture - Final
No Growth - Final Report
07/01/23 00:01 Blood/Venous Blood Culture - Final
No Growth - Final Report
--- NOTE | 2023-07-06 15:13 | W.PN.HOSP.TC ---
Addendum entered and electronically signed by Lula Gomez MD 07/06/23 16:41:
Other impression:
Sepsis, leukocytosis,White cell count more than 12,000, heart rate more than 110 and respiratory 26, likely secondary to pneumonia.
Management as per pneumonia as below improved
Hyponatremia, present admission likely secondary to pneumonia and diuretic
Resolved sodium 137
Original Note:
Today's Communication/Plan
-
All discussed with the patient
Discussed with cardiology
Discussed with the nurse
Assessment / Plan
Assessment / Plan
Physical exam:
General: Awake, alert and oriented x3, not in distress and holds appropriate conversation.
HEENT: No active discharge, ecchymosis or bruising, moist lips, tongue and mucous membrane.
Eyes: No discharge or red conjunctiva, no nystagmus, pupils are reactive and equal
Neck:Supple, no JVD no bruit no goiter.
Respiratory: Normal AP contour and diameter, normal chest wall movement, normal respiratory effort, no respiratory distress,
Lungs: Good air entry bilaterally, no wheezing or rhonchi, no rales or crackles
Heart: S1, S2 regular, normal rate, no added sound.
Gastrointestinal: Positive bowel sounds, soft, nontender, no guarding or rigidity or organomegaly
Musculoskeletal: , no chest wall abnormality or tenderness. All joints and extremities have good range of motion, no muscle tenderness or any joint swelling or tenderness.
Extremities: Mild lower extremity pitting edema, good peripheral pulses, good range of motion
Skin: Warm and dry, no ulceration, normal color.
A/P: Patient is a 67y F with PMH significant for bronchiectasis / ILD and scleroderma / CREST syndrome who presents to ED complaining of fatigue, anorexia and general malaise x several days.
Patient is a 67y F with PMH significant for bronchiectasis, ILD, scleroderma / CREST syndrome who presents to ED complaining of generalized fatigue and weakness for the past few days. Patient states that she was seen in the ED here last month
with similar symptoms. She was diagnosed with L sided pneumonia (though it depends on the images you reference) and was treated with oral steroids and Augmentin. Patient states that her symptoms at that time fully resolved. She was feeling well
until this past Monday when she began to feel fatigue return. Patient notes that she spent the weekend with her grandchildren before each of these episodes.
She has a mild, non-productive cough. Low grade fever at home to 100.5, now afebrile. Poor appetite.
Chest CT
IMPRESSION:
There is a significant increase in bilateral diffuse pneumonia when compared to the prior chest CT from 3 weeks ago.
This is most significant in the medial aspect of the left lung base.
Please note that the esophagus is filled with food debris during the exam, concerning for slow transit, gastroesophageal reflux disease, and possible aspiration. Could the patient have developed aspiration pneumonia since the prior CT?
Orthostatic hypotension:
Resolved.
Likely dehydration, infection had been on Lasix 80 twice daily
Lasix on hold since yesterday and some fluids given
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
Reassess and discharge on Lasix 80 mg daily instead of twice daily.
Look to the recent echo her EF around 55%
Will give some normal saline at 80 mill per hour as discussed with cardiology
Will keep overnight to reevaluate tomorrow then discharge
Bilateral Pneumonia
Bronchiectasis / ILD
- CXR shows increased pulmonary opacities in areas similar to those seen of CXR and CT scans done one month ago.
- continue cef/doxy - patient is improving on this regimen. Abx day 5/7
- Pulmonary evaluation appreciated
- Supportive care including mucolytics, nebs PRN
- No wheeze noted, did not add steroids
-patient approaching discharge feels needs one more day. Will F/U how she does with PT and likely discharge tomorrow on 1-2 more days oral antibiotics
GERD
-CT with evidence of GERD. Patient states Prilosec helps with symptoms more than Protonix. She will ask someone to bring in Prilosec for her to take here
-one does of IV pepcid now
-patient has hx low-grade of narrowing Schatzki ring EGD 2016 s/p dilation
-she eloy follow up closely with her GI physician, Dr. Fuentes post discharge
Paroxysmal Atrial Fibrillation
SVT
- EKG and tele show sinus rhythm with periods of sinus arrhythmia / SVT.
- Monitor on telemetry overnight.
- ? MAT secondary to pulmonary process.
-continue UTILIZATION REVIEW RN Diltiazem, Eliquis
Chronic HFpEF
- Patient is maintained on Lasix 80mg BID which is we put on hold as mentioned above and give some IV fluid she looks very dry
- No evidence of volume overload on exam.
- Continue usual PO Lasix dosing.
- Follow I/Os, daily weights, etc.
Hypokalemia
-replete
TAMMY
- Unfortunately, patient notes that she is not tolerant of CPAP therapy.
- Has machine at home but never uses it.
- Monitor SpO2 (has known nocturnal hypoxemia due to the above).
Benign Hypertension
- Stable. Continue outpatient medications.
Scleroderma
CREST Syndrome
Raynaud's
- Stable. Continue usual supportive medications.
History of Breast Cancer
- s/p R mastectomy.
- Continue anastrazole for ongoing therapy.
DVT Prophylaxis: On Eliquis
Code Status: Full
Anticipated Discharge: Within 24 hours
Subjective/Interval History
-
Date of Service: July 06, 2023
Seen and examined, awake and alert, overall looks and feels better, pressure and dizziness improving orthostatic vital sign is closing,
Better hydrated.
Still having a dry cough and feeling tired and fatigue and generalized weakness but better than before.
No new complain
Discussed with cardiology
Objective Data
-
Labs:
Laboratory Results
07/06/23
05:29
Sodium 137
Potassium 4.0
Chloride 106
Carbon Dioxide 21 L
BUN 19 H
Creatinine 0.7
Glucose 88
Calcium 9.6
Vital Signs:
Vital Signs
Temp Pulse Resp BP Pulse Ox
97.9 F 71 18 126/65 96
07/06/23 11:55 07/06/23 11:55 07/06/23 11:55 07/06/23 11:55 07/06/23 11:55
I&O
07/05/23 07/06/23 07/07/23
07:59 07:59 07:59
Intake Total 1320 / 1320 2039 / 2039
Output Total 1275 / 1275 450 / 450
Balance 45 / 45 1590 / 1590
Review of Systems
-
All other systems: Reviewed and negative
[2023-07-06] MEDS: TESSALON PERLES 200 MG PO (17:46)
[2023-07-06] MEDS: STERILE WATER FOR INJECTION 10 ML IV (19:59)
[2023-07-06] MEDS: ROCEPHIN 1000 MG IV (19:59)
[2023-07-06] MEDS: ARIMIDEX 1 MG PO (20:00)
[2023-07-06] MEDS: LIPITOR 10 MG PO (20:00)
[2023-07-07] MEDS: TESSALON PERLES 200 MG PO (00:31)
[2023-07-07 06:00] VITALS: BMI 31.8
[2023-07-07 07:55] VITALS: BP 102/62; BP 131/69; BP 137/69; PULSE 101; PULSE 82; PULSE 86
[2023-07-07] MEDS: SPIRIVA RESPIMAT 2.5 MCG 2 PUFF INH (08:22)
[2023-07-07] MEDS: SYMBICORT 80/4.5 MCG INHALER 2 PUFF INH (08:22)
[2023-07-07] MEDS: LASIX 80 MG PO (09:10)
[2023-07-07] MEDS: CARDIZEM CD 240 MG PO (09:10)
[2023-07-07] MEDS: PROTONIX 40 MG PO (09:10)
[2023-07-07] MEDS: MUCINEX 600 MG PO (09:10)
[2023-07-07] MEDS: VIBRAMYCIN 100 MG PO ×2 (09:10→17:38)
[2023-07-07] MEDS: ELIQUIS 5 MG PO (09:11)
[2023-07-07] MEDS: PROZAC 20 MG PO (09:11)
--- NOTE | 2023-07-07 10:50 | CM ---
Patient seen bedside, reports she is being discharged today. Patient reports her sister will be bringing her home. CM discussed PT recommendation of home health, discussed patient does work and VN can only meet with patient if home bound. Patient
reports she would like referral made to [facility] and will be taking time off of work to recover. Referral sent to [facility] in [facility]. CM will continue to follow for discharge planning needs.
Plan; home with [facility] if accepted.
--- NOTE | 2023-07-07 15:20 | W.PN.PUL3 ---
Today's Communication / Plan
-
Off O2 at rest and with exertion - she continues to improve from pulmonary standpoint
She has had sufficient amount of ABx --> recommend to stop ABx now
Continue Symbicort and Spiriva
Acapella
Outpatient GI evaluation
O2 walk study prior to discharge
No additional recommendations from pulmonary perspective. Patient is optimized and is stable for discharge, which I will defer to hospitalist. Pulmonary service will now sign off. Please reconsult if there are any additional questions/concerns,
or if patient's respiratory status deteriorates. I will arrange for outpatient follow-up with our office with Dr. Brar.
-
Assessment
-
67-year-old woman with past medical history significant for bronchiectasis, interstitial lung disease, scleroderma/crest syndrome who presented to the emergency room complaining of generalized fatigue, weakness for the past few days. About a month
ago treated for pneumonia with steroids and Augmentin.
After dose antibiotics symptoms fully resolved.
About 3 days ago again started to feel fatigued and tired. She usually spends days with her grandchildren who are little.
Reports some coughing. Low-grade fevers.
Denies nausea vomiting or diarrhea.
Chest x-ray showed bilateral pulmonary infiltrates suggestive of pneumonia.
---
Bilateral pneumonia-persistent infiltrate since May.
Completed a course of prednisone and Augmentin in May.
Chest x-ray showed June 30, 2023 bilateral parenchymal opacities slight progression compared to prior on the right middle lobe.
Negative COVID
Negative influenza
Leukocytosis � resolved
Acute respiratory insufficiency - markedly improved
Orthostatic positive - likely due to hypovolemia in the setting of reduced p.o. intake - orthostatic symptoms now resolved
Conditions present prior admission:
History of bronchiectasis/ILD- Follows up with Dr. Brar
PFT 04/07/23: FVC 2.43/89%, FEV1 1.89/91%, ratio 70. TLC 4.7/110%, DLCO 7.17/39%.
on Spiriva/Symbicort
Alpha one AT [facility], not on augmentation.
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
History of paroxysmal atrial fibrillation
Chronic heart failure with preserved ejection fraction
Obstructive sleep apnea- Intolerant to CPAP
History of esophageal stricture status post dilation
Hypertension
History of breast cancer status post right mastectomy on anastrozole
Echocardiogram 03/09/2023: Reviewed, showed normal LVEF. EF 60-65%. Normal right ventricle size and function. No significant valvular abnormalities. Pulmonary hypertension 29-34 mmHg.
Assessment and plan:
Clinical picture suggest community-acquired pneumonia.
CT chest performed 07/02/2023: Worsening bilateral multifocal infiltrates/stable bronchiectasis. No pleural effusion.
Persistent bilateral infiltrates compared to 06/11/2023.
CT chest 06/11/2023:
1.). Stable moderately extensive bronchiectasis throughout both lungs
2). Stable 2 cm enlarged pretracheal lymph node at the level of the damaris.
3). New patchy areas of confluent airspace disease in the right middle lobe and lingula which may reflect pneumonia or mucoid impaction
Not on oxygen supplementation at rest.
Afebrile
Leukocytosis resolved
Bibasilar crackles on exam, now resolved as of 07/04
Not bronchospastic currently
-
Continue current antibiotics: Ceftriaxone/doxycycline. She seems to be responding to these. Give 7 days total ABx - she has been on ABx since 06/29, ok to stop them now
Cultures so far negative
Has not been able to produce sputum, ideally a sputum culture to evaluate for Pseudomonas infection may be helpful.
Considering patient has continued to improve, no need for bronchoscopy with BAL
-
Recommend speech evaluation, has history of esophageal strictures in the past. She denies any swallowing problems.
STAKER SURVEYING saw pt on 07/02 and GI consult recommended, which will be done as outpatient
Continue diet as per STAKER SURVEYING, and pt to see GI in office
Continue aspiration precautions
-
Continue nebulizer therapy with prn albuterol
I resumed her Symbicort and Spiriva --> she has Symbicort, Spiriva and prn albuterol at home ready.
Acapella device for secretion clearance.
Mucolytics
-
No indication for systemic corticosteroids, not bronchospastic on exam and she does not have a Hx of COPD.
-
Continue oxygen supplementation. Wean down as able with goal SpO2 >90%
Not usually on supplemental oxygen.
Home oxygen assessment prior to discharge
-
Patient has history of CREST-not on any therapy. Follows up with Dr. Baca.
-
DVT prophylaxis: On NOAC
-
Disposition efforts - PT recommends home health
No additional recommendations from pulmonary perspective. Patient is optimized and is stable for discharge which I will defer to hospitalist. Pulmonary service will now sign off. Thank you for allowing us to be involved in the care of this
patient. Please reconsult if there are any additional questions/concerns, or if patient's respiratory status deteriorates. I will arrange for outpatient follow-up with our office with Dr. Brar.
-
Total time spent today was 25 minutes for this encounter. Time includes reviewing laboratory test/imaging results, reviewing pertinent medical records, obtaining and reviewing medical history, performing an appropriate exam, ordering medications,
tests and procedures. Time also includes documentation of this encounter, coordinating patient care and communicating with other healthcare professionals. Total time does not include separately billed tests performed on this date of service.
Subjective Data
-
Date of Service:
Date of Service: July 07, 2023
Chief Complaint: Pulmonary Follow Up (Bilateral pneumonia)
Subjective:
Patient seen today at bedside. She feels ready to go home. She has been walking around in no acute distress. PT evaluated her today and still recommend home health. She still gets a little short of breath with activity but it is markedly
improved since admission. She denies any overnight events, and denies chest pain, headache, shortness of breath at rest, fevers or chills.
Review of Systems
General: Other (Negative unless mentioned above)
Objective Data
Data Reviewed
Vital Signs / I&O / Oxygen:
Vital Signs
Temp Pulse Resp BP Pulse Ox
97.8 F 74 18 123/64 95
07/07/23 15:55 07/07/23 15:55 07/07/23 15:55 07/07/23 15:55 07/07/23 15:55
Intake and Output
07/06/23 07/07/23 07/08/23
06:59 06:59 06:59
Intake Total 600 / 600 2660 / 2660
Output Total 200 / 200 250 / 250
Balance 400 / 400 2410 / 2410
SaO2 95
Nasal Cannula flow liters per 2
minute
Physical Exam
General: Respiratory Distress (negative) and Comfortable
HEENT: Normocephalic and Anicteric
Cardiovascular: S1-S2 and Peripheral Edema (negative)
Respiratory: Clear, Wheeze (negative), Crackles (negative), Rhonchi (negative) and Non-Labored Respirations
GI: Soft, Non Distended, Non Tender and Normal Bowel Sounds
Neurology: AO x 3
Skin: Warm and Dry
Labs/Micro/Reports
Lab Data
07/03/23 04:58
07/06/23 05:29
Microbiology
07/01/23 00:35 Blood/Venous Blood Culture - Final
No Growth - Final Report
07/01/23 00:01 Blood/Venous Blood Culture - Final
No Growth - Final Report
--- NOTE | 2023-07-07 15:49 | W.PN.HOSP.TC ---
Addendum entered and electronically signed by Gene Lu MD 07/07/23 16:16:
Dictation- [id number]
Original Note:
Today's Communication/Plan
-
Discharge
Assessment / Plan
Assessment / Plan
A/P: Patient is a 67y F with PMH significant for bronchiectasis / ILD and scleroderma / CREST syndrome who presents to ED complaining of fatigue, anorexia and general malaise x several days.
Patient is a 67y F with PMH significant for bronchiectasis, ILD, scleroderma / CREST syndrome who presents to ED complaining of generalized fatigue and weakness for the past few days. Patient states that she was seen in the ED here last month
with similar symptoms. She was diagnosed with L sided pneumonia (though it depends on the images you reference) and was treated with oral steroids and Augmentin. Patient states that her symptoms at that time fully resolved. She was feeling well
until this past Monday when she began to feel fatigue return. Patient notes that she spent the weekend with her grandchildren before each of these episodes.
She has a mild, non-productive cough. Low grade fever at home to 100.5, now afebrile. Poor appetite.
Chest CT
IMPRESSION:
There is a significant increase in bilateral diffuse pneumonia when compared to the prior chest CT from 3 weeks ago.
This is most significant in the medial aspect of the left lung base.
Please note that the esophagus is filled with food debris during the exam, concerning for slow transit, gastroesophageal reflux disease, and possible aspiration. Could the patient have developed aspiration pneumonia since the prior CT?
# Orthostatic hypotension:
Resolved.
Likely dehydration, infection had been on Lasix 80 twice daily
Lasix changed to daily
# Bilateral Pneumonia
Bronchiectasis / ILD
- CXR shows increased pulmonary opacities in areas similar to those seen of CXR and CT scans done one month ago.
- continue cef/doxy - patient is improving on this regimen. Antibiotics last dose today
- Pulmonary evaluation appreciated
- Supportive care including mucolytics, nebs PRN
- No wheeze noted, did not add steroids
# GERD
-CT with evidence of GERD. Patient states Prilosec helps with symptoms more than Protonix. She will ask someone to bring in Prilosec for her to take here
-patient has hx low-grade of narrowing Schatzki ring EGD 2016 s/p dilation
-she will follow up closely with her GI physician, Dr. Fuentes post discharge
#Paroxysmal Atrial Fibrillation
SVT
- EKG and tele show sinus rhythm with periods of sinus arrhythmia / SVT.
- ? MAT secondary to pulmonary process.
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
#Chronic HFpEF
- Lasix 80 mg daily started
#Hypokalemia
-Replete
#TAMMY
- Unfortunately, patient notes that she is not tolerant of CPAP therapy.
- Has machine at home but never uses it.
- Monitor SpO2 (has known nocturnal hypoxemia due to the above).
#Benign Hypertension
- Stable. Continue outpatient medications.
#Alpha one AT [facility], not on replacement
#Scleroderma
#CREST Syndrome-Follows with Dr. Alvares
#Raynaud's
- Stable. Continue usual supportive medications.
#History of Breast Cancer
- s/p R mastectomy.
- Continue anastrazole for ongoing therapy.
#DVT Prophylaxis: On Eliquis
#Code Status: Full
D/W Pulm
D/W RN
Give AB early-Spoke to Pharmacy
F/U discussed
Discharge time 37 min
Anticipated Discharge: Today
Subjective/Interval History
-
Date of Service: July 07, 2023
Objective Data
-
Vital Signs:
Vital Signs
Temp Pulse Resp BP Pulse Ox
98.0 F 86 15 131/69 96
07/07/23 07:55 07/07/23 09:10 07/07/23 08:27 07/07/23 09:10 07/07/23 08:27
I&O
07/06/23 07/07/23 07/08/23
06:59 06:59 06:59
Intake Total 600 / 600 2660 / 2660
Output Total 200 / 200 250 / 250
Balance 400 / 400 2410 / 2410
[2023-07-07 15:55] VITALS: BP 123/64
[2023-07-07 16:09] VITALS: BP 124/73; PULSE 78; O2SAT 78
--- NOTE | 2023-07-07 16:13 | W.DS.TRANS ---
DC Summary - [employer]
-
Discharge Instructions:
Discharge Diagnosis/Procedures Pneumonia, GERD, orthostatic hypotension, atrial
fibrillation, SVT, chronic CHF, hypertension,
lower Aderma, crest syndrome, history of breast
cancer
Diet 2 Gram Sodium,Restrict fluids to 64 oz
Activity As tolerated,With assistance
Driving Restrictions As prior to admission
Others Tests Chest X ray in 4-6 weeks
Other Services VN
Specialty Instructions Weigh Daily
Instructions:
Stand-Alone Forms:
Changes to Home Medications: Yes
Discharge Medications:
DC Medications w/original date entered in [facility] [employer]
omeprazole 40 mg capsule,delayed release 40 mg PO DAILY Gastrointestinal issue 02/17/18
albuterol sulfate 90 mcg/actuation aerosol inhaler 2 puff inhalation R Q4HPRN PRN sob 06/07/18
anastrozole 1 mg tablet 1 mg PO HS Cancer 12/07/19
fluoxetine 20 mg capsule 20 mg PO DAILY Depression 05/12/20
apixaban 5 mg tablet (Eliquis) 5 mg PO BID Blood clot prevention/tx 09/11/20
diltiazem HCl 240 mg capsule,extended release 24 hr 240 mg PO BID Arrhythmia 09/11/20
atorvastatin 10 mg tablet 10 mg PO HS High cholesterol 01/31/22
budesonide-formoterol HFA 80 mcg-4.5 mcg/actuation aerosol inhaler (Symbicort) 2 puff inhalation BID Lung/Breathing Issues 11/24/22
tiotropium bromide 1.25 mcg/actuation mist for inhalation (Spiriva Respimat) 2 puff inhalation DAILY Lung/Breathing Issues 11/24/22
guaifenesin 600 mg tablet, extended release 12 hr (Mucinex) 600 mg PO BID PRN cough 07/01/23
benzonatate 100 mg capsule 200 mg (2 x 100 mg) PO TIDPRN PRN cough #30 caps 07/07/23
furosemide 40 mg tablet 80 mg (2 x 40 mg) PO DAILY Fluid retention/Swelling #0 tabs 07/07/23
polyethylene glycol 3350 17 gram oral powder packet (HealthyLax) 17 g PO DAILY PRN Constipation #0 ea 07/07/23
Home Medication Changes
new
polyethylene glycol 3350 17 gram oral powder packet (HealthyLax) 17 g PO DAILY PRN Constipation #0 ea 07/07/23
benzonatate 100 mg capsule 200 mg (2 x 100 mg) PO TIDPRN PRN cough #30 caps 07/07/23
Lasix changed to daily
Pending Results: No
[2023-07-07] MEDS: STERILE WATER FOR INJECTION 10 ML IV (17:38)
[2023-07-07] MEDS: ROCEPHIN 1000 MG IV (17:39)
== END 2023-07-07 21:52 | disposition home health service (06) | DRG 871 ==
LOC: 4 EAST ACU 02:37
PROVIDERS: Emergency Medicine; Internal Medicine; Nurse Practitioner; Student in an Organized Health Care Education/Training Program; ADMITTING PHYSICIAN Hospitalist; ATTENDING PHYSICIAN Hospitalist; CONSULT PHYSICIAN Internal Medicine Cardiovascular Disease; CONSULT PHYSICIAN Internal Medicine Critical Care Medicine; CONSULT PHYSICIAN Internal Medicine Gastroenterology; EMERGENCY PHYSICIAN Emergency Medicine; FAMILY PHYSICIAN Internal Medicine
DX: A41.9 Sepsis, unspecified organism (principal); J18.9 Pneumonia, unspecified organism; J47.0 Bronchiectasis with acute lower respiratory infection; E87.1 Hypo-osmolality and hyponatremia; I47.10 Supraventricular tachycardia, unspecified; I50.32 Chronic diastolic (congestive) heart failure; J44.0 Chronic obstructive pulmonary disease with (acute) lower respiratory infection; I48.0 Paroxysmal atrial fibrillation; I11.0 Hypertensive heart disease with heart failure; D64.9 Anemia, unspecified; K21.9 Gastro-esophageal reflux disease without esophagitis; M34.1 CR(E)ST syndrome; F32.A Depression, unspecified; F41.9 Anxiety disorder, unspecified; R06.89 Other abnormalities of breathing; I27.29 Other secondary pulmonary hypertension; K22.2 Esophageal obstruction; I95.1 Orthostatic hypotension; E87.6 Hypokalemia; R09.02 Hypoxemia; G47.33 Obstructive sleep apnea (adult) (pediatric); Z90.11 Acquired absence of right breast and nipple; Z11.52 Encounter for screening for COVID-19; Z79.01 Long term (current) use of anticoagulants; Z87.01 Personal history of pneumonia (recurrent); Z79.51 Long term (current) use of inhaled steroids; Z79.52 Long term (current) use of systemic steroids; Z88.5 Allergy status to narcotic agent; Z88.2 Allergy status to sulfonamides; Z88.8 Allergy status to other drugs, medicaments and biological substances; Z85.3 Personal history of malignant neoplasm of breast
CPT/HCPCS: 71046; 71250; 80048; 80053; 83605; 83735; 84484; 85025; 85027; 87040; 87502; 87811; 92526; 92610; 93005; 94640; 94667; 94668; 96365; 96375; 97116; 97166; 97530; 99285

== ENCOUNTER → 2023-07-18 06:28 | Day surgery (SDC) | payer OTHER, SELFPAY | LOC: GI 06:28 | PROVIDERS: ATTENDING PHYSICIAN Internal Medicine Gastroenterology; FAMILY PHYSICIAN Internal Medicine | DX: R13.10 Dysphagia, unspecified (principal); R12 Heartburn; Q39.9 Congenital malformation of esophagus, unspecified; K44.9 Diaphragmatic hernia without obstruction or gangrene; K31.7 Polyp of stomach and duodenum; K31.89 Other diseases of stomach and duodenum; K29.50 Unspecified chronic gastritis without bleeding | CPT/HCPCS: 43239; 88305; 88342 ==

== ENCOUNTER 2023-11-20 09:13 | Emergency (ER) | payer OTHER, SELFPAY ==
[2023-11-20 09:20] VITALS: BP 145/88
[2023-11-20 10:02] VITALS: BMI 31.7
[2023-11-20 10:03] VITALS: BP 93/71
[2023-11-20] MEDS: NSS 500 IV (10:14)
--- NOTE | 2023-11-20 10:14 | ED.GENMED ---
History of Present Illness
<Roger Farah MD, Resident - Last Filed: 11/20/23 12:56>
General
Chief Complaint: Breathing Problem
Source: patient
Time Seen by Provider: 11/20/23 09:23
Travel History
Have you traveled to any high risk areas for coronavirus over the past 14 days?: No
Have you had any contact with someone who has COVID-19?: No
Do you have any symptoms of coronavirus? Fever > 100 degrees, chills, cough, shortness of breath, sore throat, loss of taste or smell, muscle aches, or headache?: No
History of Present Illness
History of Present Illness:
Alisia Blankenship, age 68, started feeling fatigued, mildly short of breath and tachycardic after taking a shower this morning. Her medical history is pertinent for scleroderma, COPD, cHFpEF and afib. Of note, she received a flu shot yesterday. Also
complains of a right sided lateral back pain, which she developed after she was admitted here in June for pneumonia; unchanged so far. Denies pain/discomfort with deep inspiration, shortness of breath at present, nausea, vomiting, palpitations, chest
pain or tightness.
Past History
<Roger Farah MD, Resident - Last Filed: 11/20/23 12:56>
Past History
ED Past Medical History: Arrthythmia (Atrial fibrillation), Asthma, Cancer (Breast cancer), COPD, GERD, HTN and Other (Scleroderma, bronchiectasis, anemia, alpha-1 antitrypsin deficiency)
ED Past Surgical History: Cholecystectomy, Gynecological (Right mastectomy) and Orthopedic
Social History
Tobacco: Non-smoker
Alcohol: None
Drug: None
Personal: Other
Living: with family
Employment: Retired
Family History
Family History: Other (Noncontributory)
Review of Systems
<Roger Farah MD, Resident - Last Filed: 11/20/23 12:56>
Review of Systems
Allergies reviewed?: Yes
All Other Systems: ROS reviewed and negative except as documented in HPI and ROS
Constitutional: Reports fatigue
EENT: Reports no symptoms
Respiratory: Reports trouble breathing
Cardiac: Reports no symptoms
ABD/GI: Reports no symptoms
: Reports no symptoms
Musculoskeletal: Reports no symptoms
Skin: Reports no symptoms
Neurological: Reports no symptoms
Psychiatric: Reports no symptoms
Phy Exam
<Roger Farah MD, Resident - Last Filed: 11/20/23 12:56>
General Physical Exam
General Presentation: well appearing and no apparent distress
General Skin: warm and dry
General Habitus: normal
General Mental: alert
General Hydration: appears well hydrated
ENT Exam
ENT Exam: EOMI, pharynx normal, neck supple and normocephalic
Eye Exam
Eye Exam: PERRL, cornea clear and conjunctiva normal
Cardiovascular Exam
Cardiovascular Exam: regular rate/rhythm, no edema, no murmur and normal peripheral pulses
Pulmonary Exam
Pulmonary Exam: lungs clear, no respiratory distress, no rales, no crackles, no rhonchi, no stridor, no wheezing and no cough
Gastrointestinal Exam
Gastrointestinal Exam: normal bowel sounds, non tender, soft, no organomegaly, no pulsatile mass and non distended
Neurological Exam
Neurological Exam: alert, oriented x3, no motor deficits and speech normal
Musculoskeletal Exam
Musculoskeletal Exam: full ROM and no edema
Skin Exam
Skin Exam: normal color, warm/dry, no rash and no petechia
Psychiatric Exam
Psychiatric Exam: normal mood/affect
Scores
<Roger Farah MD, Resident - Last Filed: 11/20/23 12:56>
Heart Failure Risk
Heart Failure Risk Score: Not Applicable
Course
<Roger Fantasma Farah MD, Resident - Last Filed: 11/20/23 12:56>
Orders/Labs/Results
Orders:
Orders
11/20/23 09:14
Electrocardiogram (*1) Urgent
Reason for Study: Palpitations
EKG- Treatment ONCE
11/20/23 09:59
0.9% Sodium Chloride 500 ml [Nss] 500 ml IV BOLUS
CR Chest - 2 Views Urgent
Comment:
Reason For Exam: sob
11/20/23 10:02
Basic Metabolic Panel Urgent
Complete Blood Count/No Diff Urgent
Abnormal Lab Results
11/20/23
10:02
Carbon Dioxide 20 L mmol/L
(22-30)
Glucose 104 H mg/dl
(70-99)
Calcium 7.9 L mg/dl
(8.4-10.2)
11/20/23 10:02
11/20/23 10:02
Vital Signs
Initial and Last Documented VS:
Initial Vital Signs
Temp Pulse Resp BP Pulse Ox
98.0 F 107 16 145/88 97
11/20/23 09:20 11/20/23 09:20 11/20/23 09:20 11/20/23 09:20 11/20/23 09:20
Last Documented Vital Signs
Temp Pulse Resp BP Pulse Ox
98.0 F 111 18 111/67 99
11/20/23 09:20 11/20/23 12:50 11/20/23 12:50 11/20/23 12:50 11/20/23 12:50
Kristinlt;Reji Salazar DO - Last Filed: 11/20/23 11:47>
Orders/Labs/Results
Orders:
Orders
11/20/23 09:14
Electrocardiogram (*1) Urgent
Reason for Study: Palpitations
EKG- Treatment ONCE
11/20/23 09:59
0.9% Sodium Chloride 500 ml [Nss] 500 ml IV BOLUS
CR Chest - 2 Views Urgent
Comment:
Reason For Exam: sob
11/20/23 10:02
Basic Metabolic Panel Urgent
Complete Blood Count/No Diff Urgent
Abnormal Lab Results
11/20/23
10:02
Carbon Dioxide 20 L mmol/L
(22-30)
Glucose 104 H mg/dl
(70-99)
Calcium 7.9 L mg/dl
(8.4-10.2)
11/20/23 10:02
11/20/23 10:02
Vital Signs
Initial and Last Documented VS:
Initial Vital Signs
Temp Pulse Resp BP Pulse Ox
98.0 F 107 16 145/88 97
11/20/23 09:20 11/20/23 09:20 11/20/23 09:20 11/20/23 09:20 11/20/23 09:20
Last Documented Vital Signs
Temp Pulse Resp BP Pulse Ox
98.0 F 111 18 111/67 99
11/20/23 09:20 11/20/23 12:50 11/20/23 12:50 11/20/23 12:50 11/20/23 12:50
<Roger Farah MD, Resident - Last Filed: 11/20/23 12:56>
*Critical Care Note
Total Time (30-74mins, 75-104mins- exclusive of procedures): Not Applicable
<Roger Farah MD, Resident - Last Filed: 11/20/23 12:56>
Update Note
Update Note:
Blood work and imaging reviewed - unremarkable.
ED Attending Note
<Roger Farah MD, Resident - Last Filed: 11/20/23 12:56>
-
Portions of this chart may have been created with voice recognition software.� Occasional wrong word or��sound alike� substitutions may have occurred due to the inherent limitations of voice recognition software.
<Reji GimenezLane Salazar, DO - Last Filed: 11/20/23 11:47>
ED Attending Note
Patient seen and examined by attending physician: Yes
I performed a history and physical exam of patient and discussed management with resident, I reviewed resident's note and agree with documented findings and plan of care.: Yes
ED Attending Note:
I agree with Dr. Farah's note.
Pt c/o significant fatigue after taking shower today. No fever, chest pain, sob.
General: Awake, Alert, Oriented X3. No acute distress.
Vitals: unremarkable
Head: Atraumatic
Eyes: Pupils equal, EOMI
Throat: Airway intact, no exudates
Neck: Trachea midline
Lungs: Clear and equal b/l
Heart: Regular rate, no murmurs
Abd: Soft, Nontender, No pulsatile mass
Neuro: Nonfocal
Skin: Warm, dry, no rash
Extremities: pulses equal b/l, no edema
Patient is hemodynamically stable. Afebrile.
Discharge Plan
Departure
Patient Disposition: Home (Routine Discharge)
Date of Disposition: 11/20/23
Time of Disposition: 12:20
Patient with high blood pressure during this ER visit?: No
Condition: Good
Discharge Problem:
Immunization reaction
Instructions: What you should know about vaccines
Prescriptions:
No Action
omeprazole 40 MG capsule,delayed release(DR/EC)
40 mg PO DAILY
albuterol sulfate 1 PUFF HFA aerosol inhaler
2 puff inhalation R Q4HPRN PRN (Reason: sob)
anastrozole 1 MG tablet
1 mg PO HS
fluoxetine 20 MG capsule
20 mg PO DAILY
Eliquis 5 MG tablet
5 mg PO BID
diltiazem HCl 240 MG capsule,extended release 24hr
240 mg PO BID
atorvastatin 10 mg Tablet
10 mg PO HS
budesonide-formoterol [Symbicort] 80-4.5 mcg/actuation Hfa Aerosol Inhaler
2 puff INHALATION BID
Patient Comments:
on hold
Spiriva Respimat 1.25 mcg/actuation Mist
2 puff INHALATION DAILY
Patient Comments:
on hold
guaifenesin [Mucinex] 600 mg Tablet Extended Release 12hr
600 mg PO BID PRN (Reason: cough)
polyethylene glycol 3350 [HealthyLax] 17 gram Powder In Packet
17 g PO DAILY PRN (Reason: Constipation) Qty: 0 0RF
benzonatate 100 mg Capsule
200 mg PO TIDPRN PRN (Reason: cough) Qty: 30 0RF
furosemide 40 MG tablet
80 mg PO DAILY Qty: 0 0RF
Referrals:
John Palencia I., DO [Family Provider] -
Activity Restrictions/Additional Instructions:
You likely had a reaction following immunization, which is not out of the ordinary. Plenty of rest and you should improve over the next couple of days.
Interventions
Interventions:
*Risk Screen - Suicide Last Done: 11/20/23 09:20
*General Assessment Last Done: 11/20/23 10:00
*Neglect/Abuse Screening Last Done: 11/20/23 10:00
ED- Fall Risk Assessment Last Done: 11/20/23 10:00
*ED COVID-19 Vaccine History Last Done: 11/20/23 10:00
*Nursing Disposition Last Done: 11/20/23 12:51
ED- Cardiac Assessment Last Done: 11/20/23 10:00
ED- Pulmonary Assessment Last Done: 11/20/23 10:00
Discharge Date and Time
Discharge Date/Time: 11/20/23 12:51
Print Language: JAPANESE
[2023-11-20 10:19] LABS: Hematocrit 40.4 % (37.0-47.0); Hemoglobin 13.6 g/dL (12.0-16.0); Mean Corp Hgb Conc. 33.7 g/dL (33.0-37.0); Mean Corpuscular Hgb 28.8 pg (27.0-31.0); Mean Corpuscular Volume 85.6 fL (81.0-99.0); Mean Platelet Volume 9.5 fL (7.4-10.4); Platelet Count 231 10^3/uL (130-400); Red Blood Cell Count 4.72 10^6/uL (4.20-5.40); White Blood Cell Count 6.2 10^3/uL (4.8-10.8)
[2023-11-20 10:28] LABS: Blood Urea Nitrogen 11 mg/dl (7-17); Calcium 7.9 mg/dl (8.4-10.2); Carbon Dioxide 20 mmol/L (22-30); Chloride 105 mmol/L (98-107); Estimated Creatinine Clearance 62 ml/min; Glucose 104 mg/dl (70-99); Potassium 3.6 mmol/L (3.5-5.1); Sodium 140 mmol/L (135-145); eGFR > 60.00
[2023-11-20 11:00] VITALS: BP 112/64
[2023-11-20 12:50] VITALS: BP 111/67
== END 2023-11-20 12:51 | disposition home or self-care (01) ==
LOC: EMR 09:13
PROVIDERS: Student in an Organized Health Care Education/Training Program; EMERGENCY PHYSICIAN Emergency Medicine; FAMILY PHYSICIAN Internal Medicine
DX: R53.83 Other fatigue (principal); T50.B95A Adverse effect of other viral vaccines, initial encounter; I11.0 Hypertensive heart disease with heart failure; I48.91 Unspecified atrial fibrillation; I50.32 Chronic diastolic (congestive) heart failure; J44.89 Other specified chronic obstructive pulmonary disease; K21.9 Gastro-esophageal reflux disease without esophagitis; Z85.3 Personal history of malignant neoplasm of breast
CPT/HCPCS: 99285; 96360; 71046; 80048; 85027; 93005

== ENCOUNTER 2023-12-18 15:30 | Observation (INO) | payer OTHER, MEDICARE, SELFPAY ==
[2023-12-18] VITALS (11 sets, daily range): BP systolic 110–150; BP diastolic 58–74; BMI 27.8; BMI 30.1
[2023-12-18 11:40] LABS: % Basophils 0.3 % (0-2); % Eosinophils 0.3 % (0-6); % Immature Granulocytes 0.7 % (0-0.5); % Lymphocytes 4.1 % (20.5-51.1); % Monocytes 5.9 % (1.7-9.3); % Neutrophils 88.7 % (42.2-75.2); Absolute Immature Granulocytes 0.1 10^3/uL (0-0.05); Absolute Lymphocytes 0.5 10^3/uL (1.2-3.4); Absolute Monocytes 0.7 10^3/uL (0.1-0.6); Absolute Neutrophils 10.5 10^3/uL (1.4-6.5); Hematocrit 37.7 % (37.0-47.0); Hemoglobin 12.7 g/dL (12.0-16.0); Mean Corp Hgb Conc. 33.7 g/dL (33.0-37.0); Mean Corpuscular Hgb 28.1 pg (27.0-31.0); Mean Corpuscular Volume 83.4 fL (81.0-99.0); Mean Platelet Volume 10.2 fL (7.4-10.4); Nucleated Red Blood Cells % 0 %; Platelet Count 223 10^3/uL (130-400); Red Blood Cell Count 4.52 10^6/uL (4.20-5.40); Red Cell Dist. Width 14.5 % (11.5-14.5); White Blood Cell Count 11.8 10^3/uL (4.8-10.8)
--- NOTE | 2023-12-18 11:40 | ED.GENMED ---
History of Present Illness
General
Chief Complaint: Breathing Problem
Time Seen by Provider: 12/18/23 11:39
History of Present Illness
History of Present Illness:
TIME OF INITIAL ENCOUNTER: 11:45 AM
HPI:
Patient had relatively abrupt onset right-sided periscapular pain. She has a history of COPD but reports no new shortness of breath. She was recently treated for pneumonia. Temperature was borderline elevated for EMS.
EXAM:
GENERAL: Appears somewhat chronically ill and appears to have pain related to the right periscapular region
HEENT: Moist oral mucosa
CARDIOVASCULAR: No murmurs, normal heart rate, regular rhythm, No chest wall tenderness
PULMONARY: No respiratory distress, breath sounds are clear and equal, there is no wheeze
ABDOMEN: Soft with no peritoneal signs, no tenderness
NEUROLOGIC: Fair strength all extremities, no coordination deficits
PSYCHIATRIC: Appropriate mental status, normal insight and judgement
EXTREMITIES: Nontender, no edema, moves all extremities equally
SKIN: No rash, no lesions
NUMBER AND COMPLEXITY OF PROBLEMS ADDRESSED AT THE ENCOUNTER
� Chronic conditions affecting care: A-fib, high blood pressure, COPD
� Acute Exacerbation and/or Progression of Chronic Illness: This is an acute problem
� Differential Diagnosis includes: Pneumothorax, COPD exacerbation, pneumonia, viral syndrome, muscle strain
AMOUNT AND/OR COMPLEXITY OF DATA TO BE REVIEWED AND ANALYZED
� I performed an independent evaluation of and my interpretation is:
EKG: Sinus 75, normal axis, lateral ST abnormality similar to prior (11/20/2023)
CT:
X-rays: Chest x-ray shows multifocal pneumonia most notable in the right
Laboratory Studies: White count 11.8, hemoglobin normal, chemistries including troponin are unremarkable, COVID-negative
Other:
� Review of other/old records: I reviewed records, the patient was here in June with upper endoscopy
� Clinical information was obtained by an independent historian:
� Prescriptions/Medications Considered but not given:
� Further testing considered but not performed:
RISK OF COMPLICATIONS AND/OR MORBIDITY OR MORTALITY OF PATIENT MANAGEMENT
� Social determinants of health affecting care: Came in by ambulance
� Discussion with other providers: Hospitalist for admission
� Escalation of care including admission/observation vs risk of discharge considered: Considered outpatient management however the patient had rather debilitating symptoms to the point that she came in by ambulance, white count
was elevated and she does have COPD as well.
ANY OTHER UPDATES:
2:20 PM: The patient does feel somewhat improved compared to prior however is very concerned of the pain. Location of pain correlates with the findings on x-ray. White count is elevated she has COPD as a medical comorbidity�planning admission to
the hospital for IV antibiotics.
Past History
Past History
ED Past Medical History: Arrthythmia (Atrial fibrillation), Asthma, Cancer (Breast cancer), COPD, GERD, HTN and Other (Scleroderma, bronchiectasis, anemia, alpha-1 antitrypsin deficiency)
ED Past Surgical History: Cholecystectomy, Gynecological (Right mastectomy) and Orthopedic
Social History
Tobacco: Non-smoker
Alcohol: None
Drug: None
Personal: Other
Living: with family
Employment: Retired
Family History
Family History: Other (Noncontributory)
Phy Exam
Physical Exam
Physical Exam:
See HPI
Scores
Heart Failure Risk
Heart Failure Risk Score: Not Applicable
Course
Orders/Labs/Results
Orders:
Orders
12/18/23 11:27
ECG [Electrocardiogram (*1)] Urgent
Reason for Study: Other
Other Reason for Exam: R shoulder pain
EKG- Treatment ONCE
12/18/23 11:29
Basic Metabolic Panel Urgent
Complete Blood Count/With Diff Urgent
Troponin I Urgent
12/18/23 11:39
COVID-19 Antigen Urgent
Source: Nasal Swab
Influenza A+B Rapid Molecular Urgent
KALEB Source: Nasal Swab
Specimen Description:
12/18/23 11:45
CR Chest - 2 Views Urgent
Comment:
Reason For Exam: R pleuritic pain
12/18/23 11:46
Acetaminophen [Tylenol] 1,000 mg PO NOW STA
Abnormal Lab Results
12/18/23
11:29
WBC 11.8 H 10^3/uL
(4.8-10.8)
Abs Immat Gran (auto) 0.1 H 10^3/uL
(0-0.05)
Absolute Neuts (auto) 10.5 H 10^3/uL
(1.4-6.5)
Absolute Lymphs (auto) 0.5 L 10^3/uL
(1.2-3.4)
Absolute Monos (auto) 0.7 H 10^3/uL
(0.1-0.6)
Immature Gran % 0.7 H %
(0-0.5)
Neutrophils % 88.7 H %
(42.2-75.2)
Lymphocytes % 4.1 L %
(20.5-51.1)
Glucose 122 H mg/dl
(70-99)
12/18/23 11:29
12/18/23 11:29
Vital Signs
Initial and Last Documented VS:
Initial Vital Signs
Temp Pulse Resp BP Pulse Ox
98.9 F 79 16 137/67 98
12/18/23 11:00 12/18/23 11:00 12/18/23 11:00 12/18/23 11:00 12/18/23 11:00
Last Documented Vital Signs
Temp Pulse Resp BP Pulse Ox
98.9 F 81 27 116/69 92
12/18/23 11:00 12/18/23 14:00 12/18/23 14:00 12/18/23 14:00 12/18/23 14:00
*Critical Care Note
Total Time (30-74mins, 75-104mins- exclusive of procedures): Not Applicable
ED Attending Note
-
Portions of this chart may have been created with voice recognition software.� Occasional wrong word or��sound alike� substitutions may have occurred due to the inherent limitations of voice recognition software.
Discharge Plan
Departure
Prescriptions:
No Action
omeprazole 40 MG capsule,delayed release(DR/EC)
40 mg PO DAILY
albuterol sulfate 1 PUFF HFA aerosol inhaler
2 puff inhalation R Q4HPRN PRN (Reason: sob)
anastrozole 1 MG tablet
1 mg PO HS
fluoxetine 20 MG capsule
20 mg PO DAILY
Eliquis 5 MG tablet
5 mg PO BID
diltiazem HCl 240 MG capsule,extended release 24hr
240 mg PO BID
atorvastatin 10 mg Tablet
10 mg PO HS
budesonide-formoterol [Symbicort] 80-4.5 mcg/actuation Hfa Aerosol Inhaler
2 puff INHALATION BID
Patient Comments:
on hold
Spiriva Respimat 1.25 mcg/actuation Mist
2 puff INHALATION DAILY
Patient Comments:
on hold
guaifenesin [Mucinex] 600 mg Tablet Extended Release 12hr
600 mg PO BID PRN (Reason: cough)
polyethylene glycol 3350 [HealthyLax] 17 gram Powder In Packet
17 g PO DAILY PRN (Reason: Constipation) Qty: 0 0RF
benzonatate 100 mg Capsule
200 mg PO TIDPRN PRN (Reason: cough) Qty: 30 0RF
furosemide 40 MG tablet
80 mg PO DAILY Qty: 0 0RF
Referrals:
John Palencia I., DO [Family Provider] -
Interventions
Interventions:
*Risk Screen - Suicide Last Done: 12/18/23 11:00
*General Assessment Last Done: 12/18/23 11:24
*Neglect/Abuse Screening Last Done: 12/18/23 11:00
ED- Fall Risk Assessment Last Done: 12/18/23 11:24
*ED COVID-19 Vaccine History Last Done: 12/18/23 11:24
ED- Cardiac Assessment Last Done: 12/18/23 11:24
ED- Pulmonary Assessment Last Done: 12/18/23 11:24
Discharge Date and Time
Print Language: MALAY
[2023-12-18 12:09] LABS: Troponin I < 0.012 ng/ml
[2023-12-18 12:10] LABS: Blood Urea Nitrogen 13 mg/dl (7-17); Calcium 9.3 mg/dl (8.4-10.2); Carbon Dioxide 22 mmol/L (22-30); Chloride 103 mmol/L (98-107); Estimated Creatinine Clearance 77 ml/min; Glucose 122 mg/dl (70-99); Sodium 138 mmol/L (135-145); eGFR > 60.00
[2023-12-18 12:17] LABS: COVID-19 Antigen Negative (Negative)
[2023-12-18] MEDS: TYLENOL 1000 MG PO (12:22)
--- NOTE | 2023-12-18 15:07 | HPS.HSE ---
Family Physician
-
Family Physician: John Palencia
Chief Complaint
-
right back pain
History of Present Illness
68-year-old female past medical history of COPD/asthma, alpha-1 antitrypsin deficiency, breast cancer, CREST syndrome, scleroderma,, hypertension, CHF, SVT, atrial fibrillation, orthostatic hypotension, GERD, presenting with right-sided posterior
back pain which started today associate with breathing. She had a little cough this morning but no cough currently. Denies fevers or chills. Denies anterior chest pain. Denies lower extremity edema.
She has been feeding the birds recently and thinks that that might have caused her pneumonia.
Denies smoking or alcohol use.
Medical History
Past Medical History
Past Medical History: Reports Other (COPD/asthma, alpha-1 antitrypsin deficiency, breast cancer, CREST syndrome, scleroderma,, hypertension, CHF, SVT, atrial fibrillation, orthostatic hypotension, GERD)
Past Surgical History: Reports Other (Cholecystectomy, Gynecological (Right mastectomy) and Orthopedic)
Social History
Tobacco: Non-smoker
Alcohol: None
Drug: None
Family History
Family History: Not pertinent
Allergies / Home Medications
Allergies reflects when Allergies were last updated in [facility].
Home Medications with original date entered in [facility]
Allergy/Medication List:
Allergies
Allergy/AdvReac Type Severity Reaction Status Date / Time
codeine Allergy Hives, Verified 12/18/23 11:02
Itching
Sulfa (Sulfonamide Allergy Hives, Verified 12/18/23 11:02
Antibiotics) itching
Sympathomimetic A Allergy Pharmacy Verified 12/18/23 11:02
*RETIRED-10/12/11 to Review
pseudoephedrine AdvReac jittery Verified 12/18/23 11:02
Home Medications
omeprazole 40 mg capsule,delayed release 40 mg PO DAILY Gastrointestinal issue 02/17/18
albuterol sulfate 90 mcg/actuation aerosol inhaler 2 puff inhalation R Q4HPRN PRN sob 06/07/18
anastrozole 1 mg tablet 1 mg PO HS Cancer 12/07/19
fluoxetine 20 mg capsule 20 mg PO DAILY Depression 05/12/20
apixaban 5 mg tablet (Eliquis) 5 mg PO BID Blood clot prevention/tx 09/11/20
diltiazem HCl 240 mg capsule,extended release 24 hr 240 mg PO DAILY Arrhythmia 09/11/20
atorvastatin 10 mg tablet 10 mg PO HS High cholesterol 01/31/22
guaifenesin 600 mg tablet, extended release 12 hr (Mucinex) 600 mg PO BIDPRN PRN cough 07/01/23
furosemide 40 mg tablet 80 mg (2 x 40 mg) PO DAILY Fluid retention/Swelling #0 tabs 07/07/23
cholecalciferol (vitamin D3) 25 mcg (1,000 unit) tablet (Vitamin D3) 25 mcg PO DAILY 12/18/23
diltiazem HCl 180 mg capsule,24 hr,extended release 180 mg PO QPM 12/18/23
famotidine 40 mg tablet (Pepcid) 40 mg PO HS 12/18/23
Review of Systems
-
History Source: Patient
A 12 point ROS was completed and negative except as noted: Yes
Constitutional: Reports No Symptoms
EENT: Reports No Symptoms
Respiratory: Reports See HPI
Cardiac: Reports See HPI
Abdomen/GI: Reports No Symptoms
: Reports No Symptoms
Musculoskeletal: Reports No Symptoms
Skin: Reports No Symptoms
Neurological: Reports No Symptoms
Endocrine: Reports No Symptoms
Hematologic/Lymphatic: Reports No Symptoms
Psych: Reports No Symptoms
Physical Exam
Vital Signs
Vital Signs
Temp Pulse Resp BP Pulse Ox
98.7 F 84 18 119/71 95
12/18/23 15:04 12/18/23 15:04 12/18/23 15:04 12/18/23 15:04 12/18/23 15:04
Physical Exam
General: Well Developed, Well Nourished and No Apparent Distress
HEENT: NormoCephalic, Moist mucous membranes and Atraumatic
Respiratory: Clear
Cardiac: S1/S2 and Regular Rhythm; No Murmur or Rub
GI: Soft, Non Tender, Non Distended and Normal Bowel Sounds; No Organomegaly
Rectal: Deferred by Provider
Musculoskeletal: No Clubbing, No Cyanosis and No Edema
Skin: No Rash
Neuro: Nonfocal/grossly intact
Laboratory Results
-
12/18/23 11:29
12/18/23 11:29
Laboratory Results
Total Bilirubin Cancelled 12/18/23 11:29
AST Cancelled 12/18/23 11:29
ALT Cancelled 12/18/23 11:29
Alkaline Phosphatase Cancelled 12/18/23 11:29
Troponin I < 0.012 ng/ml 12/18/23 11:29
Data Reviewed
-
Lab Data: Labs Reviewed by me
Old Records: Reviewed
Impression/Plan
-
IMPRESSION:
PLAN:
# Multifocal pneumonia predominantly of right midlung
-COVID influenza negative
-Ceftriaxone/azithromycin
COPD/asthma
-Continue albuterol
History of alpha-1 antitrypsin deficiency
Breast cancer
-Continue anastrozole
CREST syndrome
Esophageal stricture
-Continue famotidine, omeprazole
Scleroderma
Essential hypertension
Chronic HFpEF
-Continue Lasix
History of SVT
Paroxysmal atrial fibrillation
-Continue Eliquis
-Continue diltiazem
Orthostatic hypotension
Anxiety/depression
-Continue fluoxetine
Full code
DVT prophylaxis�Eliquis
Regular diet
[2023-12-18] MEDS: ROCEPHIN 1000 MG IV (15:11)
[2023-12-18] MEDS: ZITHROMAX INFUSION 250 IV (15:43)
[2023-12-18] MEDS: CARDIZEM CD 180 MG PO (17:56)
[2023-12-18] MEDS: TYLENOL 650 MG PO (19:25)
[2023-12-18] MEDS: ELIQUIS 5 MG PO (20:47)
[2023-12-18] MEDS: PEPCID 40 MG PO (20:48)
[2023-12-18] MEDS: LIPITOR 10 MG PO (20:48)
[2023-12-18] MEDS: ARIMIDEX 1 MG PO (20:48)
[2023-12-19 06:00] VITALS: BMI 29.9
[2023-12-19] MEDS: ProAIR HFA INHALER 2 PUFF INH (06:35)
[2023-12-19 07:15] VITALS: BP 114/52
[2023-12-19 08:31] LABS: % Basophils 0.3 % (0-2); % Eosinophils 0.3 % (0-6); % Immature Granulocytes 0.6 % (0-0.5); % Lymphocytes 14.3 % (20.5-51.1); % Monocytes 8.4 % (1.7-9.3); % Neutrophils 76.1 % (42.2-75.2); Absolute Immature Granulocytes 0.1 10^3/uL (0-0.05); Absolute Lymphocytes 1.5 10^3/uL (1.2-3.4); Absolute Monocytes 0.9 10^3/uL (0.1-0.6); Absolute Neutrophils 8.2 10^3/uL (1.4-6.5); Hematocrit 35.7 % (37.0-47.0); Hemoglobin 11.8 g/dL (12.0-16.0); Mean Corp Hgb Conc. 33.1 g/dL (33.0-37.0); Mean Corpuscular Hgb 28.7 pg (27.0-31.0); Mean Corpuscular Volume 86.9 fL (81.0-99.0); Mean Platelet Volume 10.5 fL (7.4-10.4); Nucleated Red Blood Cells % 0 %; Platelet Count 196 10^3/uL (130-400); Red Blood Cell Count 4.11 10^6/uL (4.20-5.40); Red Cell Dist. Width 14.7 % (11.5-14.5); White Blood Cell Count 10.7 10^3/uL (4.8-10.8)
[2023-12-19 08:47] LABS: ALT (SGPT) 13 U/L (0-35); AST (SGOT) 24 U/L (14-36); Albumin 3.8 g/dl (3.5-5.0); Alkaline Phosphatase 91 U/L (38-126); Blood Urea Nitrogen 14 mg/dl (7-17); Calcium 8.6 mg/dl (8.4-10.2); Carbon Dioxide 22 mmol/L (22-30); Chloride 104 mmol/L (98-107); Estimated Creatinine Clearance 69 ml/min; Glucose 96 mg/dl (70-99); Potassium 3.6 mmol/L (3.5-5.1); Sodium 137 mmol/L (135-145); Total Bilirubin 0.8 mg/dl (0.2-1.3); Total Protein 6.6 g/dl (6.3-8.2); eGFR > 60.00
[2023-12-19] MEDS: PROTONIX 40 MG PO (09:48)
[2023-12-19] MEDS: CARDIZEM CD 240 MG PO (09:48)
[2023-12-19] MEDS: LASIX 80 MG PO (09:49)
[2023-12-19] MEDS: ELIQUIS 5 MG PO (09:49)
[2023-12-19] MEDS: VITAMIN D3 (cholecalciferol) 25 MCG PO (09:49)
[2023-12-19] MEDS: PROZAC 20 MG PO (09:49)
[2023-12-19] MEDS: VIBRAMYCIN 100 MG PO (09:51)
--- NOTE | 2023-12-19 10:56 | W.PN.HOSP.TC ---
Today's Communication/Plan
-
Monitor vital signs
see plan
Discharge today on oral antibiotics
Patient with follow-up with PCP and pulmonary outpatient
Assessment / Plan
Assessment / Plan
General: Well Developed, Well Nourished and No Apparent Distress
HEENT: NormoCephalic, Moist mucous membranes and Atraumatic
Respiratory: Clear
Cardiac: S1/S2 and Regular Rhythm; No Murmur or Rub
GI: Soft, Non Tender, Non Distended and Normal Bowel Sounds
Rectal: Deferred by Provider
Musculoskeletal: No Edema
Skin: No Rash
Neuro: Nonfocal/grossly intact
Acute Multifocal pneumonia predominantly of right midlung
-COVID influenza negative
-Ceftriaxone/switch azithromycin to doxycycline. Currently without any fever. Feeling better. Will discharge patient home on oral antibiotics. Patient will follow-up with PCP and pulmonary outpatient. Outpatient chest x-ray in 4 weeks
COPD/asthma
-Continue albuterol
History of alpha-1 antitrypsin deficiency
Breast cancer
-Continue anastrozole
CREST syndrome
Esophageal stricture
-Continue famotidine, omeprazole
Scleroderma
Essential hypertension
Chronic HFpEF
-Continue Lasix
History of SVT
Paroxysmal atrial fibrillation
-Continue Eliquis
-Continue diltiazem
Orthostatic hypotension
Anxiety/depression
-Continue fluoxetine
Full code
DVT prophylaxis�Eliquis
Anticipated Discharge: Today
Subjective/Interval History
-
Date of Service: December 19, 2023
denies pain
Objective Data
-
Labs:
Laboratory Results
12/19/23
07:34
WBC 10.7
Hgb 11.8 L
Hct 35.7 L
Plt Count 196
Sodium 137
Potassium 3.6
Chloride 104
Carbon Dioxide 22
BUN 14
Creatinine 0.7
Glucose 96
Calcium 8.6
Total Bilirubin 0.8
AST 24
ALT 13
Alkaline Phosphatase 91
Vital Signs:
Vital Signs
Temp Pulse Resp BP Pulse Ox
98 F 81 18 114/52 95
12/19/23 07:15 12/19/23 09:48 12/19/23 07:15 12/19/23 09:48 12/19/23 07:15
I&O
12/18/23 12/19/23 12/20/23
06:59 06:59 06:59
Intake Total 480 / 480
Balance 480 / 480
--- NOTE | 2023-12-19 11:03 | W.DCSUMMARY ---
Discharge Summary
Discharge Data
Date of Admission: 12/18/23
Date of Discharge: 12/19/23
-
Pending Results: No
Hospital Course
68-year-old female with past medical history of COPD/asthma, alpha-1 antitrypsin deficiency, breast cancer, prior syndrome, esophageal stricture, scleroderma, essential hypertension, CHF, SVT, paroxysmal atrial fibrillation, orthostatic hypotension,
anxiety/depression came to the hospital with shortness of breath known to have acute multifocal pneumonia. Patient was initially started on IV antibiotic which were later transitioned to oral antibiotics once her symptoms continue to improve. She
was instructed to get repeat chest x-ray done in 4 weeks with primary care provider. She was also instructed to follow-up with pulmonary outpatient. Patient did not require any oxygenation throughout hospitalization. Since her symptoms continue
to improve, she was then transition to oral antibiotics and was instructed to follow-up with all her physicians outpatient.
Discharge Plan
-
Patient Disposition: Home (Routine Discharge)
Discharge Diagnosis/Procedures: Multifocal pneumonia
History of alpha-1 antitrypsin deficiency
Diet: As tolerated
Activity: As tolerated
Driving Restrictions: As prior to admission
Bathing Restrictions: None
Others Tests: Repeat chest x-ray with primary care provider in 4 weeks
Referrals:
John Palencia DO [Family Provider] - in less than 1 week
Jazmin Brar MD [Active] - in two weeks
Prescriptions:
New
doxycycline hyclate 100 mg Capsule
100 mg PO Q12 Qty: 14 0RF
cefdinir 300 mg capsule
300 mg PO BID Qty: 14 0RF
guaifenesin [Mucinex] 600 mg tablet extended release 12hr
600 mg PO Q12H Qty: 14 0RF
benzonatate 200 mg capsule
200 mg PO TID PRN (Reason: Cough) Qty: 30 0RF
Continued
omeprazole 40 MG capsule,delayed release(DR/EC)
40 mg PO DAILY
albuterol sulfate 1 PUFF HFA aerosol inhaler
2 puff inhalation R Q4HPRN PRN (Reason: sob)
anastrozole 1 MG tablet
1 mg PO HS
fluoxetine 20 MG capsule
20 mg PO DAILY
Eliquis 5 MG tablet
5 mg PO BID
diltiazem HCl 240 MG capsule,extended release 24hr
240 mg PO DAILY
atorvastatin 10 mg Tablet
10 mg PO HS
guaifenesin [Mucinex] 600 mg Tablet Extended Release 12hr
600 mg PO BIDPRN PRN (Reason: cough)
furosemide 40 MG tablet
80 mg PO DAILY Qty: 0 0RF
diltiazem HCl 180 mg Capsule,Extended Release 24 Hr
180 mg PO QPM
famotidine [Pepcid] 40 mg Tablet
40 mg PO HS
cholecalciferol (vitamin D3) [Vitamin D3] 25 mcg (1,000 unit) Tablet
25 mcg PO DAILY
Discharge Orders:
Discharge Patient (As Directed); Ordered 12/19/23
Ordered By: Conner Jordan
Discharge Date and Time
Discharge Date/Time: 12/19/23 15:51
Print Language: MACEDONIAN
--- NOTE | 2023-12-19 11:27 | CM ---
DIONI met with Delmi at bedside to complete IA. She lives alone in a 2nd floor apartment with 13 entry steps (no elevator).
No history of DME, VN, or SNF.
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
Plan: Pt to follow up with outpatient pulmonology. home no needs
PCP: Dr. Palencia,
Pharmacy: [facility]
[2023-12-19 11:41] VITALS: BP 116/63
== END 2023-12-19 15:51 | disposition home or self-care (01) ==
LOC: 4 EAST ACU 15:30
PROVIDERS: ADMITTING PHYSICIAN Hospitalist; ATTENDING PHYSICIAN Internal Medicine; EMERGENCY PHYSICIAN Emergency Medicine; FAMILY PHYSICIAN Internal Medicine
DX: J18.9 Pneumonia, unspecified organism (principal); R06.02 Shortness of breath; E88.01 Alpha-1-antitrypsin deficiency; J44.0 Chronic obstructive pulmonary disease with (acute) lower respiratory infection; I48.0 Paroxysmal atrial fibrillation; I11.0 Hypertensive heart disease with heart failure; I50.32 Chronic diastolic (congestive) heart failure; K22.2 Esophageal obstruction; K21.9 Gastro-esophageal reflux disease without esophagitis; M34.1 CR(E)ST syndrome; F41.9 Anxiety disorder, unspecified; F32.A Depression, unspecified; I95.1 Orthostatic hypotension; J47.9 Bronchiectasis, uncomplicated; I49.1 Atrial premature depolarization; D64.9 Anemia, unspecified; Z85.3 Personal history of malignant neoplasm of breast; Z90.49 Acquired absence of other specified parts of digestive tract; Z90.11 Acquired absence of right breast and nipple; Z86.79 Personal history of other diseases of the circulatory system; Z88.5 Allergy status to narcotic agent; Z88.2 Allergy status to sulfonamides; Z79.01 Long term (current) use of anticoagulants; Z79.811 Long term (current) use of aromatase inhibitors; Z11.52 Encounter for screening for COVID-19; Z60.2 Problems related to living alone
CPT/HCPCS: 71046; 80048; 80053; 84484; 85025; 87502; 87811; 93005; 94640; 99285; G0378

== ENCOUNTER 2024-02-27 01:37 | Inpatient (IN) | payer OTHER, MEDICARE, SELFPAY ==
[2024-02-26 17:46] VITALS: BP 108/68
[2024-02-26 18:07] LABS: % Basophils 0.2 % (0-2); % Immature Granulocytes 0.5 % (0-0.5); % Lymphocytes 6.2 % (20.5-51.1); % Monocytes 8.1 % (1.7-9.3); Absolute Immature Granulocytes 0.1 10^3/uL (0-0.05); Absolute Lymphocytes 1.1 10^3/uL (1.2-3.4); Absolute Monocytes 1.4 10^3/uL (0.1-0.6); Absolute Neutrophils 14.6 10^3/uL (1.4-6.5); Hematocrit 39.8 % (37.0-47.0); Hemoglobin 13.6 g/dL (12.0-16.0); Mean Corp Hgb Conc. 34.2 g/dL (33.0-37.0); Mean Corpuscular Hgb 28.4 pg (27.0-31.0); Mean Corpuscular Volume 83.1 fL (81.0-99.0); Mean Platelet Volume 9.5 fL (7.4-10.4); Nucleated Red Blood Cells % 0 %; Platelet Count 197 10^3/uL (130-400); Red Blood Cell Count 4.79 10^6/uL (4.20-5.40); Red Cell Dist. Width 14.6 % (11.5-14.5); White Blood Cell Count 17.1 10^3/uL (4.8-10.8)
[2024-02-26 18:23] LABS: COVID-19 Antigen Negative (Negative)
[2024-02-26 18:24] LABS: ALT (SGPT) 16 U/L (0-35); AST (SGOT) 27 U/L (14-36); Albumin 4.4 g/dl (3.5-5.0); Alkaline Phosphatase 82 U/L (38-126); Blood Urea Nitrogen 17 mg/dl (7-17); Calcium 8.6 mg/dl (8.4-10.2); Carbon Dioxide 21 mmol/L (22-30); Chloride 95 mmol/L (98-107); Glucose 130 mg/dl (70-99); Potassium 3.4 mmol/L (3.5-5.1); Sodium 130 mmol/L (135-145); Total Bilirubin 1.1 mg/dl (0.2-1.3); Total Protein 7.5 g/dl (6.3-8.2); eGFR > 60.00
[2024-02-26 21:27] VITALS: BP 132/60
[2024-02-26 22:00] VITALS: BP 106/53
[2024-02-26 22:11] VITALS: BP 106/53
--- NOTE | 2024-02-26 22:42 | ED.GENMED ---
History of Present Illness
General
Chief Complaint: Breathing Problem
Time Seen by Provider: 02/26/24 21:42
History of Present Illness
History of Present Illness:
68-year-old female with history of interstitial lung disease, COPD, CHF, scleroderma, history of pneumonia presenting for productive cough. Patient reports symptoms for the past 3 days, which worsened today. Does note some shortness of breath.
Denies any fever, reports generalized fatigue and weakness. Denies any chest pain. She reports pain in her right back and feels that her symptoms are similar to prior episodes of pneumonia. Denies abdominal pain or GI symptoms, or additional
acute medical complaints.
Past History
Past History
ED Past Medical History: Arrthythmia (Atrial fibrillation), Asthma, Cancer (Breast cancer), COPD, GERD, HTN and Other (Scleroderma, bronchiectasis, anemia, alpha-1 antitrypsin deficiency)
ED Past Surgical History: Cholecystectomy, Gynecological (Right mastectomy) and Orthopedic
Social History
Tobacco: Non-smoker
Alcohol: None
Drug: None
Personal: Other
Living: with family
Employment: Retired
Family History
Family History: Other (Noncontributory)
Phy Exam
Physical Exam
Physical Exam:
General: Well-appearing, no clinical signs of dehydration, nontoxic and in no acute distress
HEENT: protecting airway
Neck: appears supple
CV: Normal heart rate, regular rhythm, no evidence of cyanosis
Resp: No accessory muscle use, no increased work of breathing, rhonchorous breath sounds bilaterally
Abd: No distention
Extremities: No deformities, no swelling
Neuro: alert, no focal neurologic deficit
: deferred
Rectal: deferred
Psych: Normal affect
Skin: Intact
Scores
Heart Failure Risk
Heart Failure Risk Score: Not Applicable
Course
Orders/Labs/Results
Orders:
Orders
02/26/24 17:49
Chest [CR Chest - 2 Views ] Urgent
Comment:
Reason For Exam: SOB
02/26/24 17:56
COVID-19 Antigen Urgent
Source: Nasal Swab
Complete Blood Count/With Diff Urgent
Comprehensive Metabolic Panel Urgent
Influenza A+B Rapid Molecular Urgent
KALEB Source: Nasal Swab
Specimen Description:
02/26/24 23:30
Lactic Acid Q4H
Comment: CANCEL 2nd LACTIC ACID IF 1st LACTIC ACID IS LESS THAN 2
02/27/24 00:25
Azithromycin 500 mg/250 ml [Zithromax Infusion] 500 mg in 250 ml IV NOW
CefTRIAXone [Rocephin] 1,000 mg IV NOW STA
02/27/24 00:45
Sterile Water [Sterile Water For Injection] 10 ml .ROUTE .STK-MED ONE
02/27/24 01:16
Blood Culture Urgent
KALEB Source: Blood/Venous
Specimen Description:
02/27/24 01:24
Admit/Transfer Patient As Directed
Co-Sign Provider:
Level of Care: Inpatient admission
Assign to:: Telemetry
Physician / Group: Bird
Diagnosis: RLL Pneumonia, Sepsis
Reason for Telemetry: Arrhythmia
Date to Stop Telemetry: 03/01/24
Time to Stop Telemetry: 11:00
Reason for Hospitalization: RLL Pneumonia, Sepsis
Expected length of stay greater than two midnights?: Yes
ELOS- Estimated Length of Stay in days: 2
I certify the patient meets the requirements for IP care: Yes
PRN Pain Medication Management As Directed
May give lesser potent ordered pain med per pt: Yes
preference::
Protocol:: Medication orders for pain may be administered in a
manner that supports deferring to patient preference
when the pt is:
- Requesting an ordered lesser potent pain medication.
Least to most potent pain medications are defined
as: acetaminophen < NSAID < tramadol < opioids
(morphine, oxycodone, hydromorphone).
- Requesting a lesser dose of the same medication IF
ORDERED.
- Requesting a less intrusive route of administration
if both routes are prescribed by the provider (PO <
IV).
02/27/24 01:26
Code Status As Directed
Resuscitation Status: Full Code
02/27/24 01:59
Acetaminophen [Tylenol] 650 mg PO Q4HPRN PRN
Albuterol Nebs [Ventolin Nebules] 2.5 mg INH R Q4HPRN PRN
02/27/24 01:59
Activity As Directed
Activity Level: Ambulate
With Assistance
EKG with chest pain [ECG as needed] As Directed
ECG as needed for:: Chest Pain
I/O [Intake/ Output] As Directed
Frequency: Per unit guidelines
Vital Signs As Directed
Frequency: Per unit guidelines
Weight As Directed
Frequency: Daily
Chest PT [Rx Chest Pt] [RESP] Routine
Special Instructions: BID
Oxygen Therapy [O2 Therapy] [RESP] Routine
Titrate/Wean O2 to maintain O2 sat greater than (%): 94
02/27/24 02:00
CefTRIAXone [Rocephin] 1,000 mg IV Q24H
Guaifenesin [Mucinex] 600 mg PO Q12H
02/27/24 Breakfast
Regular
At Your Request: Full Participation
Basic Metabolic Panel IN AM
Complete Blood Count/No Diff IN AM
02/27/24 08:00
Apixaban [Eliquis] 5 mg PO BID
Diltiazem Extended Release [Cardizem Cd] 240 mg PO DAILY
Doxycycline [Vibramycin] 100 mg PO Q12
Fluoxetine HCl [Prozac] 20 mg PO DAILY
omeprazole 40 mg PO DAILY
02/27/24 18:00
Diltiazem Extended Release [Cardizem Cd] 180 mg PO QPM
02/27/24 22:00
Anastrozole [Arimidex] 1 mg PO HS
Atorvastatin [Lipitor] 10 mg PO HS
Famotidine [Pepcid] 40 mg PO HS
03/01/24 11:00
DC Protocol for Telemetry ONCE
Abnormal Lab Results
02/26/24
17:56
WBC 17.1 H 10^3/uL
(4.8-10.8)
RDW 14.6 H %
(11.5-14.5)
Abs Immat Gran (auto) 0.1 H 10^3/uL
(0-0.05)
Absolute Neuts (auto) 14.6 H 10^3/uL
(1.4-6.5)
Absolute Lymphs (auto) 1.1 L 10^3/uL
(1.2-3.4)
Absolute Monos (auto) 1.4 H 10^3/uL
(0.1-0.6)
Neutrophils % 85.0 H %
(42.2-75.2)
Lymphocytes % 6.2 L %
(20.5-51.1)
Sodium 130 L mmol/L
(135-145)
Potassium 3.4 L mmol/L
(3.5-5.1)
Chloride 95 L mmol/L
(98-107)
Carbon Dioxide 21 L mmol/L
(22-30)
Glucose 130 H mg/dl
(70-99)
02/26/24 17:56
02/26/24 17:56
Vital Signs
Initial and Last Documented VS:
Initial Vital Signs
Temp Pulse Resp BP Pulse Ox
98.0 F 98 18 108/68 95
02/26/24 17:46 02/26/24 17:46 02/26/24 17:46 02/26/24 17:46 02/26/24 17:46
Last Documented Vital Signs
Temp Pulse Resp BP Pulse Ox
98.9 F 108 21 113/56 92
02/26/24 23:36 02/27/24 02:00 02/27/24 02:00 02/27/24 00:00 02/27/24 01:45
MDM/Problems Addressed
MDM/Problems Addressed:
68-year-old female with history of interstitial lung disease, COPD, CHF, scleroderma, history of pneumonia presenting for a productive cough and weakness. Vital signs are normal.
On exam, patient is resting comfortably, no acute respiratory distress. She does have some rhonchorous breath sounds bilaterally. Symptoms are concerning for viral syndrome versus bacterial pneumonia, given lung disease and history. Laboratory
analysis obtained prior to my assessment, elevated white blood cell count, fitting with infection. Will send lactic acid and obtain chest x-ray imaging for further assessment
00:20 -patient's lactic acid within normal limits, without concern for severe sepsis or septic shock. Chest x-ray is concerning for pneumonia. Patient ambulated, desatted to 88%. At this time feel patient warrants antibiotics and admission for
continued marcus monitoring. Patient will be admitted to hospital service
*Critical Care Note
Total Time (30-74mins, 75-104mins- exclusive of procedures): Not Applicable
ED Attending Note
-
Portions of this chart may have been created with voice recognition software.� Occasional wrong word or��sound alike� substitutions may have occurred due to the inherent limitations of voice recognition software.
Discharge Plan
Departure
Patient Disposition: Admit
Date of Disposition: 02/27/24
Time of Disposition: 00:56
Presentation/result/management discussed w/ accepting MD/DO: Hospitalist
Patient with high blood pressure during this ER visit?: No
Condition: Fair
Discharge Problem:
Community acquired pneumonia, Hypoxia
Interventions
Interventions:
*Risk Screen - Suicide Last Done: 02/26/24 17:46
*General Assessment Last Done: 02/26/24 17:46
*Neglect/Abuse Screening Last Done: 02/26/24 17:46
ED- Cardiac Assessment Last Done: 02/26/24 22:20
ED- Pulmonary Assessment Last Done: 02/26/24 22:20
[2024-02-26 23:33] VITALS: BP 115/54
[2024-02-26 23:50] LABS: Lactic Acid 1.2 mmol/L (0.7-2.0)
[2024-02-27] VITALS (7 sets, daily range): BP systolic 93–122; BP diastolic 56–82; BMI 30.1
[2024-02-27] MEDS: ROCEPHIN 1000 MG IV ×2 (00:55→23:28)
[2024-02-27] MEDS: ZITHROMAX INFUSION 250 IV (00:55)
--- NOTE | 2024-02-27 01:14 | HPS.HSE ---
Family Physician
-
Family Physician: John Palencia
Chief Complaint
-
Cough, Flank Pain
History of Present Illness
Patient is a 68y F with PMH significant for alpha-1 antitrypsin deficiency, bronchiectasis, A-Fib and hypertension who presents to ED complaining of cough, fatigue and flank pain. Patient states that she started with a cough on Monday evening.
She reports recent sick contacts in the family. Patient has had hacking, minimally productive cough with some shortness of breath. She has felt 'hot and cold' but no measured fever at home. She had some nausea yesterday, but no emesis or
diarrhea. Poor appetite and general malaise.
Today she noted discomfort in the R flank / lower lung area. She states that she has had similar symptoms in the past with pneumonia and she presented to the ED for further evaluation and treatment.
Medical History
Past Medical History
Past Medical History: Reports Other
Additional Past Medical History:
Bronchiectasis / ILD
Alpha-1 Antitrypsin Deficiency (ZZ)
Scleroderma / CREST syndrome / Raynaud's
Hypertension
Paroxysmal Atrial Fibrillation
Chronic HFpEF
TAMMY Intolerant of PAP Therapy
Right DCIS
Anxiety / Depression
Past Surgical History: Reports Other
Additional Past Surgical History:
Right Lumpectomy
Right Mastectomy / Reconstruction
Rotator Cuff Repair
Robotic Right Pyeloplasty
PVI Ablation
Social History
Tobacco: Non-smoker
Alcohol: None
Drug: None
Family History
Family History: Other (Father: Alpha-1 Antitrypsin Deficiency)
Allergies / Home Medications
Allergies reflects when Allergies were last updated in [facility].
Home Medications with original date entered in [facility]
Allergy/Medication List:
Allergies
Allergy/AdvReac Type Severity Reaction Status Date / Time
codeine Allergy Hives, Verified 02/26/24 17:46
Itching
pseudoephedrine Allergy jittery Verified 02/26/24 17:46
Sulfa (Sulfonamide Allergy Hives, Verified 02/26/24 17:46
Antibiotics) itching
Home Medications
omeprazole 40 mg capsule,delayed release 40 mg PO DAILY Gastrointestinal issue 02/17/18
albuterol sulfate 90 mcg/actuation aerosol inhaler 2 puff inhalation R Q4HPRN PRN sob 06/07/18
anastrozole 1 mg tablet 1 mg PO HS Cancer 12/07/19
fluoxetine 20 mg capsule 20 mg PO DAILY Depression 05/12/20
apixaban 5 mg tablet (Eliquis) 5 mg PO BID Blood clot prevention/tx 09/11/20
diltiazem HCl 240 mg capsule,extended release 24 hr 240 mg PO DAILY Arrhythmia 09/11/20
atorvastatin 10 mg tablet 10 mg PO HS High cholesterol 01/31/22
guaifenesin 600 mg tablet, extended release 12 hr (Mucinex) 600 mg PO BIDPRN PRN cough 07/01/23
furosemide 40 mg tablet 80 mg (2 x 40 mg) PO DAILY Fluid retention/Swelling #0 tabs 07/07/23
cholecalciferol (vitamin D3) 25 mcg (1,000 unit) tablet (Vitamin D3) 25 mcg PO DAILY Supplement 12/18/23
diltiazem HCl 180 mg capsule,24 hr,extended release 180 mg PO QPM Anti-Inflammatory 12/18/23
famotidine 40 mg tablet (Pepcid) 40 mg PO HS Gastrointestinal Issue 12/18/23
benzonatate 200 mg capsule 200 mg PO TID PRN Cough #30 caps 12/19/23
cefdinir 300 mg capsule 300 mg PO BID #14 caps 12/19/23
doxycycline hyclate 100 mg capsule 100 mg PO Q12 #14 caps 12/19/23
guaifenesin 600 mg tablet, extended release 12 hr (Mucinex) 600 mg PO Q12H #14 tabs 12/19/23
Review of Systems
-
History Source: Patient
A 12 point ROS was completed and negative except as noted: Yes
Constitutional: Reports Fatigue; Denies Fever or Chills
EENT: Denies Sore Throat
Respiratory: Reports Cough and Trouble Breathing; Denies Hemoptysis
Cardiac: Reports Chest Pain; Denies Diaphoresis, Palpitations or Syncope
Abdomen/GI: Reports Nausea and Anorexia; Denies Abdominal Pain, Vomiting or Diarrhea
: Reports Flank Pain; Denies Dysuria or Frequency
Musculoskeletal: Denies Joint Pain or Edema
Neurological: Denies Dizzy or Headache
Psych: Denies Depression or Anxiety
Physical Exam
Vital Signs
Vital Signs
Temp Pulse Resp BP Pulse Ox
98.9 F 91 20 113/56 94
02/26/24 23:36 02/27/24 01:00 02/26/24 23:36 02/27/24 00:00 02/27/24 01:00
Physical Exam
General: Other (68y F in no acute distress.)
HEENT: Other (Dry MM. Neck supple.)
Respiratory: Other (Coarse breath sounds over the R lower lung. No wheezing.)
Cardiac: S1/S2 and Irregular Rhythm; No Murmur
GI: Soft, Non Tender, Non Distended and Normal Bowel Sounds
Musculoskeletal: No Clubbing, No Cyanosis and No Edema
Neuro: AO x 3
Laboratory Results
-
02/26/24 17:56
02/26/24 17:56
Laboratory Results
Lactic Acid 1.2 mmol/L (0.7-2.0) 02/26/24 23:30
Total Bilirubin 1.1 mg/dl (0.2-1.3) 02/26/24 17:56
AST 27 U/L (14-36) 02/26/24 17:56
ALT 16 U/L (0-35) 02/26/24 17:56
Alkaline Phosphatase 82 U/L (38-126) 02/26/24 17:56
Impression/Plan
-
A/P: Patient is a 68y F with PMH significant for bronchiectasis / ILD and scleroderma / CREST syndrome who presents to ED complaining of cough, flank pain and malaise x 3 days.
RLL Pneumonia
Sepsis secondary to the above
Bronchiectasis / ILD / Alpha-1 Antitrypsin Deficiency
- Admit for further evaluation and treatment.
- Patient presents with leukocytosis, tachycardia and CXR showing R base pneumonia.
- Will start abx with ceftriaxone / doxycycline for now.
- Supportive care including mucolytics, nebs, etc.
- Follow for clinical improvement.
Paroxysmal Atrial Fibrillation
SVT
- Stable. Follow for any changes.
- Continue current outpatient regimen including diltiazem, Eliquis, etc.
Chronic HFpEF
- Patient is maintained on Lasix 80mg daily.
- No evidence of volume overload on exam.
- Hold Lasix acutely given sepsis
- Follow I/Os, daily weights, etc and resume diuretic when appropriate.
TAMMY
- Patient notes that she is not tolerant of PAP therapy.
- Has machine at home but never uses it.
- Monitor SpO2 (has known nocturnal hypoxemia due to the above).
Benign Hypertension
- Stable. Continue outpatient medications.
Scleroderma
CREST Syndrome
Raynaud's
- Stable. Continue usual supportive medications.
History of Breast Cancer
- s/p R mastectomy.
- Continue anastrazole for ongoing therapy.
DVT Prophylaxis: On Eliquis
Code Status: Full
[2024-02-27] MEDS: MUCINEX 600 MG PO ×2 (03:02→13:31)
[2024-02-27] MEDS: CARDIZEM CD PO (08:02)
[2024-02-27] MEDS: VIBRAMYCIN 100 MG PO ×2 (08:02→20:21)
[2024-02-27] MEDS: PROZAC 20 MG PO (08:03)
[2024-02-27] MEDS: PROTONIX 40 MG PO (08:03)
[2024-02-27] MEDS: ELIQUIS 5 MG PO ×2 (08:03→20:21)
[2024-02-27 10:37] LABS: Hematocrit 38.6 % (37.0-47.0); Hemoglobin 12.9 g/dL (12.0-16.0); Mean Corp Hgb Conc. 33.4 g/dL (33.0-37.0); Mean Corpuscular Hgb 28.1 pg (27.0-31.0); Mean Corpuscular Volume 84.1 fL (81.0-99.0); Mean Platelet Volume 9.9 fL (7.4-10.4); Platelet Count 179 10^3/uL (130-400); Red Blood Cell Count 4.59 10^6/uL (4.20-5.40); Red Cell Dist. Width 14.8 % (11.5-14.5); White Blood Cell Count 12.2 10^3/uL (4.8-10.8)
[2024-02-27 10:54] LABS: Blood Urea Nitrogen 17 mg/dl (7-17); Calcium 8.3 mg/dl (8.4-10.2); Carbon Dioxide 23 mmol/L (22-30); Chloride 99 mmol/L (98-107); Estimated Creatinine Clearance 60 ml/min; Glucose 108 mg/dl (70-99); Potassium 3.2 mmol/L (3.5-5.1); Sodium 133 mmol/L (135-145); eGFR > 60.00
[2024-02-27] MEDS: NSS 500 IV (12:23)
--- NOTE | 2024-02-27 13:23 | W.PN.HOSP.TC ---
Today's Communication/Plan
-
Monitor vitals
See plan
Gentle hydration and monitor volume status
Continue antibiotics
cw cardizem
Replete potassium
Nonbillable note
Assessment / Plan
Assessment / Plan
General: Other (68y F in no acute distress.)
HEENT: Other (Dry MM. Neck supple.)
Respiratory: Other (Coarse breath sounds over the R lower lung. No wheezing.)
Cardiac: S1/S2 and Irregular Rhythm; No Murmur
GI: Soft, Non Tender, Non Distended and Normal Bowel Sounds
Musculoskeletal: No Clubbing, No Cyanosis and No Edema
Neuro: AO x 3
RLL Pneumonia
Sepsis secondary to the above
Bronchiectasis / ILD / Alpha-1 Antitrypsin Deficiency
- Admit for further evaluation and treatment.
- Patient presents with leukocytosis, tachycardia and CXR showing R base pneumonia.
- cwabx with ceftriaxone / doxycycline for now.
- Supportive care including mucolytics, nebs, etc.
- Follow for clinical improvement.
Paroxysmal Atrial Fibrillation
SVT
- Stable. Follow for any changes.
- Continue current outpatient regimen including diltiazem, Eliquis, etc.
Follows up with Dr. Herbert outpatient, has had ablation in past
Chronic HFpEF
- Patient is maintained on Lasix 80mg daily.
- No evidence of volume overload on exam.
- Hold Lasix acutely given sepsis
- Follow I/Os, daily weights, etc and resume diuretic when appropriate.
TAMMY
- Patient notes that she is not tolerant of PAP therapy.
- Has machine at home but never uses it.
- Monitor SpO2 (has known nocturnal hypoxemia due to the above).
Hypokalemia
Replete
Hyponatremia
Monitor
Benign Hypertension
- Stable. Continue outpatient medications.
Scleroderma
CREST Syndrome
Raynaud's
- Stable. Continue usual supportive medications.
History of Breast Cancer
- s/p R mastectomy.
- Continue anastrazole for ongoing therapy.
DVT Prophylaxis: On Eliquis
Code Status: Full
Anticipated Discharge: > 48 hours
Subjective/Interval History
-
Date of Service: February 27, 2024
denies pain
Objective Data
-
Labs:
Laboratory Results
02/27/24
09:44
WBC 12.2 H
Hgb 12.9
Hct 38.6
Plt Count 179
Sodium 133 L
Potassium 3.2 L
Chloride 99
Carbon Dioxide 23
BUN 17
Creatinine 0.8
Glucose 108 H
Calcium 8.3 L
Vital Signs:
Vital Signs
Temp Pulse Resp BP Pulse Ox
97.4 F 119 18 102/70 94
02/27/24 11:16 02/27/24 11:16 02/27/24 11:16 02/27/24 11:16 02/27/24 11:16
[2024-02-27] MEDS: KCL 40 MEQ PO (13:31)
--- NOTE | 2024-02-27 15:44 | CM ---
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
end of February. Plan is to home when stable, patient is currently requiring 3 liters of oxygen, patient does not have oxygen in home.
PCP: Dr. Palencia
Pharmacy: [facility] [place]
Plan; Home when stable.
[2024-02-27] MEDS: CARDIZEM CD 180 MG PO (18:26)
[2024-02-27] MEDS: PEPCID 40 MG PO (21:04)
[2024-02-27] MEDS: ARIMIDEX 1 MG PO (21:04)
[2024-02-27] MEDS: LIPITOR 10 MG PO (21:05)
[2024-02-27 22:26] LABS: Blood Urea Nitrogen 23 mg/dl (7-17); Calcium 8.4 mg/dl (8.4-10.2); Carbon Dioxide 24 mmol/L (22-30); Chloride 100 mmol/L (98-107); Estimated Creatinine Clearance 60 ml/min; Glucose 100 mg/dl (70-99); Magnesium 2.1 mg/dl (1.6-2.3); Potassium 3.8 mmol/L (3.5-5.1); Sodium 132 mmol/L (135-145); eGFR > 60.00
[2024-02-27] MEDS: STERILE WATER FOR INJECTION 10 ML IV (23:28)
[2024-02-28] MEDS: MUCINEX PO (02:41)
[2024-02-28 03:28] VITALS: BP 110/76
[2024-02-28 05:22] LABS: % Basophils 0.3 % (0-2); % Immature Granulocytes 0.3 % (0-0.5); % Lymphocytes 21.5 % (20.5-51.1); % Monocytes 11.1 % (1.7-9.3); % Neutrophils 64.8 % (42.2-75.2); Absolute Eosinophils 0.2 10^3/uL (0-0.7); Absolute Lymphocytes 1.7 10^3/uL (1.2-3.4); Absolute Monocytes 0.9 10^3/uL (0.1-0.6); Hemoglobin 12.9 g/dL (12.0-16.0); Mean Corp Hgb Conc. 33.1 g/dL (33.0-37.0); Mean Corpuscular Hgb 27.7 pg (27.0-31.0); Mean Corpuscular Volume 83.9 fL (81.0-99.0); Mean Platelet Volume 10.5 fL (7.4-10.4); Nucleated Red Blood Cells % 0 %; Platelet Count 199 10^3/uL (130-400); Red Blood Cell Count 4.65 10^6/uL (4.20-5.40); Red Cell Dist. Width 14.6 % (11.5-14.5); White Blood Cell Count 7.7 10^3/uL (4.8-10.8)
[2024-02-28 05:51] LABS: Blood Urea Nitrogen 20 mg/dl (7-17); Calcium 8.3 mg/dl (8.4-10.2); Carbon Dioxide 22 mmol/L (22-30); Chloride 103 mmol/L (98-107); Estimated Creatinine Clearance 69 ml/min; Glucose 88 mg/dl (70-99); Potassium 3.6 mmol/L (3.5-5.1); Sodium 136 mmol/L (135-145); eGFR > 60.00
[2024-02-28 06:00] VITALS: BMI 29.9
[2024-02-28 07:00] VITALS: BP 98/62
[2024-02-28] MEDS: PROZAC 20 MG PO (08:03)
[2024-02-28] MEDS: VIBRAMYCIN 100 MG PO ×2 (08:03→20:48)
[2024-02-28] MEDS: PROTONIX 40 MG PO (08:03)
[2024-02-28] MEDS: ELIQUIS 5 MG PO ×2 (08:03→20:48)
[2024-02-28] MEDS: CARDIZEM CD 240 MG PO (08:19)
[2024-02-28] MEDS: KCL 40 MEQ PO (10:22)
[2024-02-28 11:00] VITALS: BP 86/56
--- NOTE | 2024-02-28 12:48 | W.PN.HOSP.TC ---
Today's Communication/Plan
-
Monitor vital signs see plan
Remains in A-fib then will need cardiology evaluation especially given history of ablation
Continue with antibiotics
Monitor blood pressure closely
cw eliquis
Assessment / Plan
Assessment / Plan
General: Other (68y F in no acute distress.)
HEENT: Other (Dry MM. Neck supple.)
Respiratory: Other (Coarse breath sounds over the R lower lung. No wheezing.)
Cardiac: S1/S2 and Irregular Rhythm; No Murmur
GI: Soft, Non Tender, Non Distended and Normal Bowel Sounds
Musculoskeletal: No Clubbing, No Cyanosis and No Edema
Neuro: AO x 3
RLL Pneumonia
Sepsis secondary to the above
Bronchiectasis / ILD / Alpha-1 Antitrypsin Deficiency
- Admit for further evaluation and treatment.
- Patient presents with leukocytosis, tachycardia and CXR showing R base pneumonia.
- cwabx with ceftriaxone / doxycycline for now.
- Supportive care including mucolytics, nebs, etc.
- Follow for clinical improvement.
Paroxysmal Atrial Fibrillation
SVT
periods on in and out afib
- Continue current outpatient regimen including diltiazem, Eliquis, etc.
Follows up with Dr. Herbert outpatient, has had ablation in past
Chronic HFpEF
- Patient is maintained on Lasix 80mg daily.
- No evidence of volume overload on exam.
- Hold Lasix acutely given sepsis
- Follow I/Os, daily weights, etc and resume diuretic when appropriate.
TAMMY
- Patient notes that she is not tolerant of PAP therapy.
- Has machine at home but never uses it.
- Monitor SpO2 (has known nocturnal hypoxemia due to the above).
Hypokalemia
Replete
Hyponatremia
Monitor
Benign Hypertension
- Stable. Continue outpatient medications.
Scleroderma
CREST Syndrome
Raynaud's
- Stable. Continue usual supportive medications.
History of Breast Cancer
- s/p R mastectomy.
- Continue anastrazole for ongoing therapy.
DVT Prophylaxis: On Eliquis
Code Status: Full
Anticipated Discharge: 24 - 48 hours
Subjective/Interval History
-
Date of Service: February 28, 2024
denies pain
Objective Data
-
Labs:
Laboratory Results
02/28/24
04:30
WBC 7.7
Hgb 12.9
Hct 39.0
Plt Count 199
Sodium 136
Potassium 3.6
Chloride 103
Carbon Dioxide 22
BUN 20 H
Creatinine 0.7
Glucose 88
Calcium 8.3 L
Vital Signs:
Vital Signs
Temp Pulse Resp BP Pulse Ox
97.5 F 67 18 86/56 98
02/28/24 11:00 02/28/24 11:00 02/28/24 11:00 02/28/24 11:00 02/28/24 11:00
I&O
02/27/24 02/28/24 02/29/24
06:59 06:59 06:59
Intake Total 960 / 960
Balance 960 / 960
[2024-02-28 15:00] VITALS: BP 113/70
[2024-02-28] MEDS: MUCINEX 600 MG PO (15:01)
[2024-02-28] MEDS: CARDIZEM CD 180 MG PO (18:59)
[2024-02-28 19:21] VITALS: BP 100/63
[2024-02-28] MEDS: LIPITOR 10 MG PO (20:52)
[2024-02-28] MEDS: PEPCID 40 MG PO (20:52)
[2024-02-28] MEDS: ARIMIDEX 1 MG PO (20:52)
[2024-02-28 22:42] VITALS: BP 124/77
[2024-02-28] MEDS: TUMS CHEWABLE TABLET 200 MG PO (22:49)
[2024-02-28] MEDS: STERILE WATER FOR INJECTION 10 ML IV (23:01)
[2024-02-28] MEDS: ROCEPHIN 1000 MG IV (23:02)
[2024-02-29] VITALS (7 sets, daily range): BP systolic 92–141; BP diastolic 54–82; BMI 30.1
[2024-02-29] MEDS: MUCINEX PO (01:36)
[2024-02-29] MEDS: CARDIZEM CD 240 MG PO ×2 (09:18→21:02)
[2024-02-29] MEDS: PROZAC 20 MG PO (09:19)
[2024-02-29] MEDS: PROTONIX 40 MG PO (09:19)
[2024-02-29] MEDS: ELIQUIS 5 MG PO ×2 (09:19→21:01)
[2024-02-29] MEDS: VIBRAMYCIN 100 MG PO ×2 (09:20→21:01)
--- NOTE | 2024-02-29 09:25 | CM ---
Chart reviewed and patient plans on returning to home at discharge, patient will need home oxygen evaluation prior to discharge. Per notes patient qualified for nocturnal device but does not use it.
Plan; To follow for any home oxygen needs at discharge.
[2024-02-29 09:48] LABS: % Basophils 0.7 % (0-2); % Eosinophils 3.5 % (0-6); % Immature Granulocytes 0.3 % (0-0.5); % Lymphocytes 29.1 % (20.5-51.1); % Monocytes 11.6 % (1.7-9.3); % Neutrophils 54.8 % (42.2-75.2); Absolute Eosinophils 0.2 10^3/uL (0-0.7); Absolute Lymphocytes 1.8 10^3/uL (1.2-3.4); Absolute Monocytes 0.7 10^3/uL (0.1-0.6); Absolute Neutrophils 3.3 10^3/uL (1.4-6.5); Hematocrit 38.4 % (37.0-47.0); Hemoglobin 12.7 g/dL (12.0-16.0); Mean Corp Hgb Conc. 33.1 g/dL (33.0-37.0); Mean Corpuscular Volume 84.8 fL (81.0-99.0); Mean Platelet Volume 10.5 fL (7.4-10.4); Nucleated Red Blood Cells % 0 %; Platelet Count 224 10^3/uL (130-400); Red Blood Cell Count 4.53 10^6/uL (4.20-5.40); Red Cell Dist. Width 14.3 % (11.5-14.5)
[2024-02-29 10:10] LABS: Blood Urea Nitrogen 18 mg/dl (7-17); Calcium 8.7 mg/dl (8.4-10.2); Carbon Dioxide 24 mmol/L (22-30); Chloride 105 mmol/L (98-107); Estimated Creatinine Clearance 69 ml/min; Glucose 85 mg/dl (70-99); Potassium 4.1 mmol/L (3.5-5.1); Sodium 138 mmol/L (135-145); eGFR > 60.00
[2024-02-29] MEDS: MAALOX 30 ML PO (13:29)
--- NOTE | 2024-02-29 13:42 | CON.CAR ---
Addendum entered and electronically signed by Valdez Hobbs MD 02/29/24 14:59:
I saw and examined the patient.
The EMERGENCY REGISTRAR or PA's note was reviewed and I agree with the note.
Comment: General: Well developed, well nourished in NAD.
Neck: Supple, no JVD, HJR, carotids +2 B/L, no bruits bilaterally.
Heart: Non displaced PMI, irregular, no murmurs, No S3, S4, no rubs.
Lungs: Scattered rhonchi
Abdomen: Normal bowel sounds, soft, non-tender, non-distended.
Extremities: No clubbing, cyanosis or edema bilaterally.
Neuro: Grossly nonfocal, awake, alert and oriented x3.
Jazmin has a history of chronic diastolic CHF, secondary pulmonary hypertension with crest syndrome and scleroderma, interstitial lung disease, PAF status post PVI in 2020 on chronic Eliquis. She presented with cough and shortness of breath.
She is found to have pneumonia. Cardiology is consulted for atrial fibrillation. Of note Cardizem was held initially due to hypotension.
It is doubtful A-fib is the cause of her shortness of breath. Will check proBNP and echocardiogram. Continue treatment of pneumonia. Home nighttime oxygen is being considered. Will increase Cardizem for rate control of her atrial fibrillation.
At this point we will rate control and consider cardioversion if remains in A-fib when seen as an outpatient.
Original Note:
Consultation
Consultation Request
Date/Time Consultation Performed: 02/29/24
Requesting Provider: Dr. Jordan
Performing Provider: Mackenzie Glover PA-C for Dr. Hobbs
Reason for Consultation: afib
Medical History
-
Chief Complaint: cough
History of Present Illness:
Patient is a 68-year-old female with past medical history of chronic heart failure with preserved EF, secondary pulmonary hypertension, crest syndrome, scleroderma, interstitial lung disease, paroxysmal A-fib status post PVI in 2020 on chronic
Eliquis who presented to [facility] complaining of cough and fatigue with associated shortness of breath. She was found to have pneumonia and admitted. Remains on po lasix 80mg BID. On arrival due to relative hypotension her OP cardizem
was held however then resumed. she was also noted to be in afib, at times HRs elevated, particularly with ambulation. Cardiology consulted for evaluation
PMH:
Paroxysmal Afib
s/p PVI 2020
Chronic Eliquis OAC
Chronic HFpEF
Secondary PHTN
HTN
ILD
Scleroderma
CREST syndrome
ILD
FH of alpha-1 antitrypsin deficiency, at least carrier
Right breast CA s/p R mastectomy without XRT or chemotherapy
TAMMY
Past Medical History
Past Medical History: Other (in HPI)
Past Surgical History: Cardiac (PVI 09/11/20), Gynecological (lumpectomy), Orthopedic and Urological (right ureteral stent and right pyeloplasty 2022)
Social History
Tobacco: Non-Smoker
Alcohol: None
Drug: None
Living: Alone
Employment: Employed
Family History
Family History: Cancer and Other (father with alpha-1 antitrypsin)
Allergies / Home Medications
Allergy/AdvReac Type Severity Reaction Status Date / Time
codeine Allergy Hives, Verified 02/26/24 17:46
Itching
pseudoephedrine Allergy jittery Verified 02/26/24 17:46
Sulfa (Sulfonamide Allergy Hives, Verified 02/26/24 17:46
Antibiotics) itching
�Medication �Instructions �Recorded �Confirmed �Type
omeprazole 40 mg capsule,delayed 40 mg PO DAILY Gastrointestinal 02/17/18 02/27/24 History
release issue
albuterol sulfate 90 mcg/actuation 2 puff inhalation R Q4HPRN PRN sob 06/07/18 02/27/24 History
aerosol inhaler
anastrozole 1 mg tablet 1 mg PO HS Cancer 12/07/19 02/27/24 History
fluoxetine 20 mg capsule 20 mg PO DAILY Depression 05/12/20 02/27/24 History
apixaban 5 mg tablet (Eliquis) 5 mg PO BID Blood clot 09/11/20 02/27/24 History
prevention/tx
diltiazem HCl 240 mg 240 mg PO DAILY Arrhythmia 09/11/20 02/27/24 History
capsule,extended release 24 hr
atorvastatin 10 mg tablet 10 mg PO HS High cholesterol 01/31/22 02/27/24 History
furosemide 40 mg tablet 80 mg (2 x 40 mg) PO DAILY Fluid 07/07/23 02/27/24 Rx
retention/Swelling #0 tabs
cholecalciferol (vitamin D3) 25 25 mcg PO DAILY Supplement 12/18/23 02/27/24 History
mcg (1,000 unit) tablet (Vitamin
D3)
diltiazem HCl 180 mg capsule,24 180 mg PO QPM Anti-Inflammatory 12/18/23 02/27/24 History
hr,extended release
famotidine 40 mg tablet (Pepcid) 40 mg PO HS Gastrointestinal Issue 12/18/23 02/27/24 History
guaifenesin 600 mg tablet, 600 mg PO Q12H #14 tabs 12/19/23 02/27/24 Rx
extended release 12 hr (Mucinex)
Review of Systems
-
History Source: Patient
All other systems: Negative unless noted
Physical Exam
Vital Signs
Temp Pulse Resp BP Pulse Ox
97.4 F 73 18 116/71 99
02/29/24 11:22 02/29/24 11:22 02/29/24 11:22 02/29/24 11:22 02/29/24 11:22
Lab Results
02/29/24 08:24
02/29/24 08:24
Impression / Plan
-
Primary Local Area Network Systems Adminstrator: Dr. Venita Herbert
Assessment:
Presentation with SOB, cough
RLL PNA
Sepsis secondary to above
Paroxysmal Afib
s/p PVI 2020
Chronic Eliquis OAC
Chronic HFpEF
Secondary PHTN
HTN
ILD
Scleroderma
CREST syndrome
ILD
FH of alpha-1 antitrypsin deficiency, at least carrier
Right breast CA s/p R mastectomy without XRT or chemotherapy
TAMMY
ECHO 03/09/23: EF 60 to 65%, GLS -18.1%, mild MR, mild AI, mild TR, PAP 29 to 34 mmHg
Plan:
-Patient presented with shortness of breath and cough and is being treated for sepsis and right lower lobe pneumonia noted on cxr.
-Cardiology consulted today due to atrial fibrillation, at times with elevated heart rates particularly with ambulation
-Will increase p.o. Cardizem to 240 mg twice daily and follow on telemetry
-Continue outpatient Eliquis
-Last echo from 02/2023 with results as above. Was ordered for repeat study as outpatient 03/06/2024, canceled, as given shortness of breath will complete while here
-Check proBNP
-Continue to wean supplemental oxygen as able, presently on 2 L. Not on home O2 chronically
-will arrange for OP cardiac follow up and could consider for OP CV if remains in afib at that time
Data Reviewed
-
EKG: Tracing Personally Visualized and interpreted
Radiology: Report Reviewed by me
Medical Tests (Nuc Med, Echo etc): Report Reviewed by me
Labs: Labs Reviewed by me
Old Records: Reviewed
--- NOTE | 2024-02-29 13:50 | W.PN.HOSP.TC ---
Today's Communication/Plan
-
Monitor vital signs
see plan
Continue with antibiotics
Cardiology evaluation
Continue with CardiLissy rubinquis
Assessment / Plan
Assessment / Plan
General: Other (68y F in no acute distress.)
HEENT: Other (Dry MM. Neck supple.)
Respiratory: Other (Coarse breath sounds over the R lower lung. No wheezing.)
Cardiac: S1/S2 and Irregular Rhythm; No Murmur
GI: Soft, Non Tender, Non Distended and Normal Bowel Sounds
Musculoskeletal: No Clubbing, No Cyanosis and No Edema
Neuro: AO x 3
RLL Pneumonia
Sepsis secondary to the above
Bronchiectasis / ILD / Alpha-1 Antitrypsin Deficiency
- Patient presents with leukocytosis, tachycardia and CXR showing R base pneumonia.
- cw abx with ceftriaxone / doxycycline for now.
- Supportive care including mucolytics, nebs, etc.
- Follow for clinical improvement.
Paroxysmal Atrial Fibrillation
SVT
periods on in and out afib/aflutter
- Continue current outpatient regimen including diltiazem, Eliquis, etc.
Follows up with Dr. Herbert outpatient, has had ablation in past
cardiology evaluation
Chronic HFpEF
- Patient is maintained on Lasix 80mg daily.
- No evidence of volume overload on exam.
- Hold Lasix acutely given sepsis.
- Follow I/Os, daily weights, etc and resume diuretic when appropriate.
TAMMY
- Patient notes that she is not tolerant of PAP therapy.
- Has machine at home but never uses it.
- Monitor SpO2 (has known nocturnal hypoxemia due to the above).
Hypokalemia
Replete
Hyponatremia
Monitor
Benign Hypertension
- Stable. Continue outpatient medications.
Scleroderma
CREST Syndrome
Raynaud's
- Stable. Continue usual supportive medications.
History of Breast Cancer
- s/p R mastectomy.
- Continue anastrazole for ongoing therapy.
DVT Prophylaxis: On Eliquis
Code Status: Full
I spent a total of 51 minutes with the patient or on the floor. More than 50% of this time involved counseling and coordination of care.
Anticipated Discharge: 24 - 48 hours
Subjective/Interval History
-
Date of Service: February 29, 2024
denies pain
Objective Data
-
Labs:
Laboratory Results
02/29/24
08:24
WBC 6.0
Hgb 12.7
Hct 38.4
Plt Count 224
Sodium 138
Potassium 4.1
Chloride 105
Carbon Dioxide 24
BUN 18 H
Creatinine 0.7
Glucose 85
Calcium 8.7
Vital Signs:
Vital Signs
Temp Pulse Resp BP Pulse Ox
97.4 F 73 18 116/71 99
02/29/24 11:22 02/29/24 11:22 02/29/24 11:22 02/29/24 11:22 02/29/24 11:22
I&O
02/28/24 02/29/24 03/01/24
06:59 06:59 06:59
Intake Total 960 / 960 1440 / 1440
Balance 960 / 960 1440 / 1440
[2024-02-29 15:15] LABS: NT-proBNP 1380 pg/ml
[2024-02-29] MEDS: PEPCID 40 MG PO (21:01)
[2024-02-29] MEDS: MUCINEX 600 MG PO (21:01)
[2024-02-29] MEDS: LIPITOR 10 MG PO (21:01)
[2024-02-29] MEDS: ARIMIDEX 1 MG PO (21:01)
[2024-02-29] MEDS: STERILE WATER FOR INJECTION 10 ML IV (23:57)
[2024-02-29] MEDS: ROCEPHIN 1000 MG IV (23:57)
[2024-03-01 03:04] VITALS: BP 117/52
[2024-03-01 06:00] VITALS: BMI 30.2
[2024-03-01 07:41] VITALS: BP 127/76
[2024-03-01] MEDS: PROZAC 20 MG PO (08:30)
[2024-03-01] MEDS: VIBRAMYCIN 100 MG PO (08:30)
[2024-03-01] MEDS: CARDIZEM CD 240 MG PO (08:30)
[2024-03-01] MEDS: PROTONIX 40 MG PO (08:30)
[2024-03-01] MEDS: MUCINEX 600 MG PO (08:30)
[2024-03-01] MEDS: ELIQUIS 5 MG PO (08:31)
[2024-03-01 08:42] LABS: % Basophils 0.6 % (0-2); % Eosinophils 4.1 % (0-6); % Immature Granulocytes 0.5 % (0-0.5); % Lymphocytes 23.1 % (20.5-51.1); % Monocytes 12.4 % (1.7-9.3); % Neutrophils 59.3 % (42.2-75.2); Absolute Eosinophils 0.3 10^3/uL (0-0.7); Absolute Lymphocytes 1.5 10^3/uL (1.2-3.4); Absolute Monocytes 0.8 10^3/uL (0.1-0.6); Absolute Neutrophils 3.7 10^3/uL (1.4-6.5); Hematocrit 39.5 % (37.0-47.0); Hemoglobin 12.8 g/dL (12.0-16.0); Mean Corp Hgb Conc. 32.4 g/dL (33.0-37.0); Mean Corpuscular Hgb 27.6 pg (27.0-31.0); Mean Corpuscular Volume 85.3 fL (81.0-99.0); Mean Platelet Volume 9.5 fL (7.4-10.4); Nucleated Red Blood Cells % 0 %; Platelet Count 232 10^3/uL (130-400); Red Blood Cell Count 4.63 10^6/uL (4.20-5.40); Red Cell Dist. Width 14.5 % (11.5-14.5); White Blood Cell Count 6.3 10^3/uL (4.8-10.8)
[2024-03-01 08:56] LABS: Blood Urea Nitrogen 17 mg/dl (7-17); Calcium 9.2 mg/dl (8.4-10.2); Carbon Dioxide 26 mmol/L (22-30); Chloride 104 mmol/L (98-107); Estimated Creatinine Clearance 60 ml/min; Glucose 83 mg/dl (70-99); Potassium 4.2 mmol/L (3.5-5.1); Sodium 138 mmol/L (135-145); eGFR > 60.00
--- NOTE | 2024-03-01 10:41 | W.PN.CARDCBS ---
Addendum entered and electronically signed by Valdez Hobbs MD 03/01/24 11:08:
I saw and examined the patient.
The BRAKE MECHANIC or PA's note was reviewed and I agree with the note.
Comment: General: Well developed, well nourished in NAD.
Neck: Supple, no JVD, HJR, carotids +2 B/L, no bruits bilaterally.
Heart: Non displaced PMI, RRR, no murmurs, No S3, S4, no rubs.
Lungs: Scattered rhonchi
Extremities: No clubbing, cyanosis or edema bilaterally.
Neuro: Grossly nonfocal, awake, alert and oriented x3.
Remains in atrial fibrillation. Consider cardioversion if remains in A-fib as an outpatient. Heart rate control reasonable. Stable cardiology status for discharge. Echocardiogram unchanged. Discussed with primary service.
Original Note:
Today's Communication / Plan
-
po cardizem 240mg BID
eliquis 5mg BID
echo results reviewed with patient
OP cardiac follow up arranged
consider for OP CV if remains in afib
ok for DC
Impression / Plan
-
Primary Prism Inspector: Dr. Venita Herbert
Assessment:
Presentation with SOB, cough
RLL PNA
Sepsis secondary to above
Paroxysmal Afib
s/p PVI 2020
Chronic Eliquis OAC
Chronic HFpEF
Secondary PHTN
HTN
ILD
Scleroderma
CREST syndrome
ILD
FH of alpha-1 antitrypsin deficiency, at least carrier
Right breast CA s/p R mastectomy without XRT or chemotherapy
TAMMY
ECHO 03/09/23: EF 60 to 65%, GLS -18.1%, mild MR, mild AI, mild TR, PAP 29 to 34 mmHg
ECHO 02/29/24: EF 59%, mild concentric LVH, mild to moderate MR, mild AR, mild TR, PAP 38 mmHg, no significant change compared to prior
Plan:
-Reports feeling improved today. Ambulated around unit without significant desaturation on room air. Continue treatment of pneumonia per primary service
-Remains in atrial fibrillation, however overall heart rate trends improved on increased dose Cardizem 240 mg twice daily
-Continue outpatient Eliquis
-Results of echo reviewed with patient, and she was very happy with this.
-Outpatient cardiac follow-up arranged. Could consider for outpatient cardioversion if remains in A-fib at that time
-No issues with discharge from cardiac standpoint. Discussed with hospitalist
Progress Note - Prism Inspector
Subjective
Date of Service: March 01, 2024
Reports feeling improved. Ambulated around unit without significant difficulty
Objective
Labs:
03/01/24 07:54
03/01/24 07:54
Labs
Hgb 12.8 g/dL (12.0-16.0) 03/01/24 07:54
Hct 39.5 % (37.0-47.0) 03/01/24 07:54
Plt Count 232 10^3/uL (130-400) 03/01/24 07:54
Sodium 138 mmol/L (135-145) 03/01/24 07:54
Potassium 4.2 mmol/L (3.5-5.1) 03/01/24 07:54
BUN 17 mg/dl (7-17) 03/01/24 07:54
Creatinine 0.8 mg/dL (0.6-1.0) 03/01/24 07:54
Glucose 83 mg/dl (70-99) 03/01/24 07:54
Vital Signs and I&O:
Vital Signs
Temp Pulse Resp BP Pulse Ox
97.6 F 69 18 127/76 98
03/01/24 07:41 03/01/24 07:41 03/01/24 07:41 03/01/24 07:41 03/01/24 08:00
Vital Signs
Temp Pulse Resp BP Pulse Ox
97.6 F 69 18 127/76 98
03/01/24 07:41 03/01/24 07:41 03/01/24 07:41 03/01/24 07:41 03/01/24 08:00
Intake & Output
02/28/24 02/29/24 03/01/24 03/02/24
07:59 07:59 07:59 07:59
Intake Total 960 / 960 1440 / 1440 1680 / 1680
Balance 960 / 960 1440 / 1440 1680 / 1680
Physical Exam
Physical Exam
GEN: No distress, awake, alert, oriented x3
HEENT: supple, anicteric, mmm, eomi
LUNGS: no audible wheezes
CV: Irreg on tele
EXT: No cyanosis, clubbing, edema
NEURO: Gross non-focal
SKIN: Warm, pink, dry. No rash
[2024-03-01 11:22] VITALS: BP 112/75
--- NOTE | 2024-03-01 11:44 | CM ---
Chart reviewed and caseworker intake met with patient this am, home oxygen testing completed and patient does not require home oxygen, patient is hoping to return to work for a couple of months after discharge.
Plan; Home alone no needs.
--- NOTE | 2024-03-01 12:16 | W.PN.HOSP.TC ---
Today's Communication/Plan
-
Monitor vital signs see plan
Switch antibiotics to oral
Continue Cardizem, Eliquis
Discharge today
time of discharge 39 minutes
Assessment / Plan
Assessment / Plan
General: Other (68y F in no acute distress.)
HEENT: Other (Dry MM. Neck supple.)
Respiratory: Other (Coarse breath sounds over the R lower lung. No wheezing.)
Cardiac: S1/S2 and Irregular Rhythm; No Murmur
GI: Soft, Non Tender, Non Distended and Normal Bowel Sounds
Musculoskeletal: No Clubbing, No Cyanosis and No Edema
Neuro: AO x 3
RLL Pneumonia
Sepsis secondary to the above
Bronchiectasis / ILD / Alpha-1 Antitrypsin Deficiency
- Patient presents with leukocytosis, tachycardia and CXR showing R base pneumonia.
Switch antibiotics to oral
- Supportive care including mucolytics, nebs, etc.
- Follow for clinical improvement.
Now weaned off oxygen, 93% on ambulatory pulse ox
Paroxysmal Atrial Fibrillation
SVT
periods on in and out afib/aflutter
- Continue current outpatient regimen including diltiazem, Eliquis, etc.
Follows up with Dr. Herbert outpatient, has had ablation in past
cardiology following, echo 1/2 unchanged from prior. Cardizem increased. Patient to follow-up with cardiology outpatient
Chronic HFpEF
- Patient is maintained on Lasix 80mg daily.
- No evidence of volume overload on exam.
Resume lasix
- Follow I/Os, daily weights, etc and resume diuretic when appropriate.
TAMMY
- Patient notes that she is not tolerant of PAP therapy.
- Has machine at home but never uses it.
- Monitor SpO2 (has known nocturnal hypoxemia due to the above).
Hypokalemia
Replete
Hyponatremia
Monitor
Benign Hypertension
- Stable. Continue outpatient medications.
Scleroderma
CREST Syndrome
Raynaud's
- Stable. Continue usual supportive medications.
History of Breast Cancer
- s/p R mastectomy.
- Continue anastrazole for ongoing therapy.
DVT Prophylaxis: On Eliquis
Code Status: Full
Anticipated Discharge: Today
Subjective/Interval History
-
Date of Service: March 01, 2024
denies pain
Objective Data
-
Labs:
Laboratory Results
03/01/24
07:54
WBC 6.3
Hgb 12.8
Hct 39.5
Plt Count 232
Sodium 138
Potassium 4.2
Chloride 104
Carbon Dioxide 26
BUN 17
Creatinine 0.8
Glucose 83
Calcium 9.2
Vital Signs:
Vital Signs
Temp Pulse Resp BP Pulse Ox
98.1 F 122 18 112/75 96
03/01/24 11:22 03/01/24 11:22 03/01/24 11:22 03/01/24 11:22 03/01/24 11:22
I&O
02/29/24 03/01/24 03/02/24
06:59 06:59 06:59
Intake Total 1440 / 1440 1680 / 1680
Balance 1440 / 1440 1680 / 1680
--- NOTE | 2024-03-01 12:27 | W.DCSUMMARY ---
Discharge Summary
Discharge Data
Date of Admission: 02/27/24
Date of Discharge: 03/01/24
-
Pending Results: No
Hospital Course
68-year-old female with past medical history of paroxysmal atrial fibrillation, CHF, TAMMY, hypertension, scleroderma, crest syndrome, Raynaud's disease, history of breast cancer came to the hospital with sepsis secondary to pneumonia. Patient
continue to improve with IV antibiotics were later transitioned to oral antibiotics prior to discharge. Initially she required oxygenation which was able to be weaned off prior to discharge. She also had persistent episodes of A-fib/a flutter for
which she was seen by cardiology. Echocardiogram was done which was unchanged from prior echocardiogram. Her Cardizem dose was increased. Once her symptoms continue to improve she was then discharged home with instructions to follow-up with all
her physicians outpatient.
Discharge Plan
-
Patient Disposition: Home (Routine Discharge)
Discharge Diagnosis/Procedures: Right lower lobe community-acquired pneumonia
Atrial fibrillation/atrial flutter with RVR
Acute hypoxic respiratory insufficiency
Diet: As tolerated
Activity: As tolerated
Driving Restrictions: As prior to admission
Bathing Restrictions: None
Others Tests: Repeat chest x-ray in 4 weeks with primary care provider
Referrals:
John Palencia I., DO [Family Provider] - in less than 1 week
Elena Corona PA-C [Specified Professional Personl] - 03/20/24 12:40 pm (You have a cardiology follow-up appointment at the [place] office with Dr. Nathan's physician assistant warehouse manager, Elena. Please call with questions)
Prescriptions:
New
doxycycline hyclate 100 mg Capsule
100 mg PO Q12 Qty: 10 0RF
cefdinir 300 mg capsule
300 mg PO BID Qty: 10 0RF
Probiotic 10 billion cell capsule
10,000 mmu cells PO DAILY Qty: 10 0RF
Continued
omeprazole 40 MG capsule,delayed release(DR/EC)
40 mg PO DAILY
albuterol sulfate 1 PUFF HFA aerosol inhaler
2 puff inhalation R Q4HPRN PRN (Reason: sob)
anastrozole 1 MG tablet
1 mg PO HS
fluoxetine 20 MG capsule
20 mg PO DAILY
Eliquis 5 MG tablet
5 mg PO BID
atorvastatin 10 mg Tablet
10 mg PO HS
furosemide 40 MG tablet
80 mg PO DAILY Qty: 0 0RF
famotidine [Pepcid] 40 mg Tablet
40 mg PO HS
cholecalciferol (vitamin D3) [Vitamin D3] 25 mcg (1,000 unit) Tablet
25 mcg PO DAILY
guaifenesin [Mucinex] 600 mg tablet extended release 12hr
600 mg PO Q12H Qty: 14 0RF
Changed
diltiazem HCl 240 MG capsule,extended release 24hr
240 mg PO BID Qty: 60 0RF
Discontinued
diltiazem HCl 180 mg Capsule,Extended Release 24 Hr
180 mg PO QPM
Discharge Orders:
Discharge Patient (As Directed); Ordered 03/01/24
Ordered By: Conner Jordan
Discharge Date and Time
Discharge Date/Time: 03/01/24 14:13
Print Language: CENTRAL AFRICAN
== END 2024-03-01 14:13 | disposition home or self-care (01) | DRG 871 ==
LOC: 4 WEST ACU 01:37
PROVIDERS: Nurse Practitioner Family; Student in an Organized Health Care Education/Training Program; ADMITTING PHYSICIAN Hospitalist; ATTENDING PHYSICIAN Internal Medicine; CONSULT PHYSICIAN Internal Medicine Cardiovascular Disease; EMERGENCY PHYSICIAN Student in an Organized Health Care Education/Training Program; FAMILY PHYSICIAN Internal Medicine
DX: A41.89 Other specified sepsis (principal); J18.9 Pneumonia, unspecified organism; I50.32 Chronic diastolic (congestive) heart failure; J44.0 Chronic obstructive pulmonary disease with (acute) lower respiratory infection; J47.0 Bronchiectasis with acute lower respiratory infection; I47.10 Supraventricular tachycardia, unspecified; E87.1 Hypo-osmolality and hyponatremia; I48.92 Unspecified atrial flutter; M34.1 CR(E)ST syndrome; E88.01 Alpha-1-antitrypsin deficiency; R09.02 Hypoxemia; G47.33 Obstructive sleep apnea (adult) (pediatric); F32.A Depression, unspecified; F41.9 Anxiety disorder, unspecified; I27.29 Other secondary pulmonary hypertension; I95.9 Hypotension, unspecified; R06.89 Other abnormalities of breathing; E87.6 Hypokalemia; I11.0 Hypertensive heart disease with heart failure; K21.9 Gastro-esophageal reflux disease without esophagitis; I48.0 Paroxysmal atrial fibrillation; Z87.01 Personal history of pneumonia (recurrent); Z90.49 Acquired absence of other specified parts of digestive tract; Z90.11 Acquired absence of right breast and nipple; Z85.3 Personal history of malignant neoplasm of breast; Z88.5 Allergy status to narcotic agent; Z88.2 Allergy status to sulfonamides; Z88.8 Allergy status to other drugs, medicaments and biological substances; Z79.01 Long term (current) use of anticoagulants; Z11.52 Encounter for screening for COVID-19
CPT/HCPCS: 71046; 80048; 80053; 83605; 83735; 83880; 85025; 85027; 87040; 87502; 87811; 93005; 93306; 96365; 96375; 99285

== ENCOUNTER → 2024-06-04 16:47 | Outpatient (REF) | payer MEDICARE, OTHER, SELFPAY | LOC: RAD 16:47 | PROVIDERS: ATTENDING PHYSICIAN Nurse Practitioner Family; OTHER PHYSICIAN Internal Medicine Cardiovascular Disease; OTHER PHYSICIAN Internal Medicine Critical Care Medicine; OTHER PHYSICIAN Internal Medicine Rheumatology | DX: R09.89 Other specified symptoms and signs involving the circulatory and respiratory systems (principal) | CPT/HCPCS: 71046 ==

== ENCOUNTER 2024-06-08 14:07 | Inpatient (IN) | payer MEDICARE, OTHER, SELFPAY ==
[2024-06-08] VITALS (9 sets, daily range): BP systolic 95–134; BP diastolic 48–74; BMI 29.6
--- NOTE | 2024-06-08 12:24 | ED.GENMED ---
History of Present Illness
General
Chief Complaint: Breathing Problem
Time Seen by Provider: 06/08/24 11:42
History of Present Illness
History of Present Illness:
68-year-old woman with history of paroxysmal A-fib on Eliquis, CHF, hypertension, scleroderma presenting to the emergency department with cough. Patient states for the past 5 days she has had fevers cough congestion runny nose. Today developed
some diarrhea. Has been having some bodyaches. Went to her PCP and tested negative for COVID and flu earlier in the week. Had a normal chest x-ray. Symptoms were not improving so she came in for further evaluation. No chest pain. No shortness
of breath. She has been having fevers and chills. No vomiting. She has been compliant with her medications.
Past History
Past History
ED Past Medical History: Arrthythmia (Atrial fibrillation), Asthma, Cancer (Breast cancer), COPD, GERD, HTN and Other (Scleroderma, bronchiectasis, anemia, alpha-1 antitrypsin deficiency)
ED Past Surgical History: Cholecystectomy, Gynecological (Right mastectomy) and Orthopedic
Social History
Tobacco: Non-smoker
Alcohol: None
Drug: None
Personal: Other
Living: with family
Employment: Retired
Family History
Family History: Other (Noncontributory)
Phy Exam
Physical Exam
Physical Exam:
GENERAL: in no acute distress
HEENT: normocephalic, extraocular movements intact, dry oral mucosa
NECK: normal inspection
RESPIRATORY: Tachypneic,, crackles at left base, left upper and right upper
CARDIOVASCULAR: regular rate and rhythm
ABDOMEN/: soft, non-distended, non-tender to palpation, no rebound or guarding
EXTREMITIES: non-tender, no edema/swelling
NEUROLOGIC: awake and alert, moves all extremities
SKIN: warm
Scores
Heart Failure Risk
Heart Failure Risk Score: Not Applicable
Course
Orders/Labs/Results
Orders:
Orders
06/08/24 12:03
Electrocardiogram (*1) Urgent
Reason for Study: Shortness of Breath
06/08/24 12:04
EKG- Treatment ONCE
06/08/24 12:13
CR Chest - 2 Views Urgent
Comment:
Reason For Exam: cough
06/08/24 12:24
0.9% Sodium Chloride 500 ml [Nss] 500 ml IV BOLUS
06/08/24 12:27
COVID-19 Antigen Urgent
Source: Nasal Swab
Complete Blood Count/With Diff Urgent
Comprehensive Metabolic Panel Urgent
Influenza A+B Rapid Molecular Urgent
KALEB Source: Nasal Swab
Specimen Description:
06/08/24 12:28
NT-proBNP Urgent
Abnormal Lab Results
06/08/24
12:27
WBC 12.4 H 10^3/uL
(4.8-10.8)
Sodium 134 L mmol/L
(135-145)
Carbon Dioxide 19 L mmol/L
(22-30)
BUN 19 H mg/dl
(7-17)
Glucose 114 H mg/dl
(70-99)
Calcium 8.1 L mg/dl
(8.4-10.2)
Alkaline Phosphatase 136 H U/L
(38-126)
06/08/24 12:27
06/08/24 12:27
Vital Signs
Initial and Last Documented VS:
Initial Vital Signs
Temp Pulse Resp BP Pulse Ox
98 F 102 26 134/67 92
06/08/24 11:14 06/08/24 11:14 06/08/24 11:14 06/08/24 11:14 06/08/24 11:14
Last Documented Vital Signs
Temp Pulse Resp BP Pulse Ox
98 F 92 18 118/74 97
06/08/24 11:14 06/08/24 12:30 06/08/24 12:30 06/08/24 11:58 06/08/24 12:30
MDM/Problems Addressed
Differential Diagnosis Includes:
Patient is a 68-year-old woman with history of CHF, A-fib, scleroderma presenting to the emergency department with 5 days of fevers chills cough congestion runny nose. During my evaluation patient had just come out of the bathroom and was extremely
tachypneic with labored breathing. Initial room air oxygen was normal however after ambulation it was in the 80s. Patient with difficulty increasing her oxygen at rest so we did place her on nasal cannula. On exam she does have left lower base
crackles. Concern for pneumonia versus viral illness. Considered CHF exacerbation though less likely. Will check blood work EKG and give fluids. Will obtain respiratory swabs and chest x-ray. Patient will need admission.
*Critical Care Note
Total Time (30-74mins, 75-104mins- exclusive of procedures): Not Applicable
Update Note
Update Note:
X-ray per my interpretation with multifocal pneumonia. She does have leukocytosis. Will give antibiotics. Discussed with hospitalist who accepted patient to their service
ED Attending Note
-
Portions of this chart may have been created with voice recognition software.� Occasional wrong word or��sound alike� substitutions may have occurred due to the inherent limitations of voice recognition software.
Discharge Plan
Departure
Patient Disposition: Admit
Date of Disposition: 06/08/24
Time of Disposition: 13:40
Presentation/result/management discussed w/ accepting MD/DO: Hospitalist
Discharge Problem:
Pneumonia
Prescriptions:
No Action
omeprazole 40 MG capsule,delayed release(DR/EC)
40 mg PO DAILY
albuterol sulfate 1 PUFF HFA aerosol inhaler
2 puff inhalation R Q4HPRN PRN (Reason: sob)
anastrozole 1 MG tablet
1 mg PO HS
fluoxetine 20 MG capsule
20 mg PO DAILY
Eliquis 5 MG tablet
5 mg PO BID
atorvastatin 10 mg Tablet
10 mg PO HS
famotidine [Pepcid] 40 mg Tablet
40 mg PO HS
diltiazem HCl 240 mg Capsule,Ext.Rel 24h Degradable
240 mg PO DAILY
acetaminophen [Tylenol Extra Strength] 500 mg Tablet
1,000 mg PO Q8HPRN PRN (Reason: mild pain/fever)
furosemide 80 mg Tablet
80 mg PO DAILY
furosemide 80 mg Tablet
40 mg PO HS
cholecalciferol (vitamin D3) [Vitamin D3] 50 mcg (2,000 unit) Tablet
50 mcg PO DAILY
Prolia 60 mg/mL Syringe
60 mg SC [id number]
guaifenesin [Mucinex] 600 mg tablet extended release 12hr
600 mg PO [id number] PRN (Reason: cough)
Referrals:
John Palencia I., DO [Family Provider] -
Interventions
Interventions:
*Risk Screen - Suicide Last Done: 06/08/24 11:14
*General Assessment Last Done: 06/08/24 11:14
*Neglect/Abuse Screening Last Done: 06/08/24 11:14
Discharge Date and Time
Print Language: DANISH
[2024-06-08 12:52] LABS: Hematocrit 40.3 % (37.0-47.0); Hemoglobin 13.9 g/dL (12.0-16.0); Mean Corp Hgb Conc. 34.5 g/dL (33.0-37.0); Mean Platelet Volume 9.4 fL (7.4-10.4); Platelet Count 268 10^3/uL (130-400); Red Cell Dist. Width 13.9 % (11.5-14.5); White Blood Cell Count 12.4 10^3/uL (4.8-10.8)
[2024-06-08 12:57] LABS: COVID-19 Antigen Negative (Negative)
[2024-06-08 12:58] LABS: ALT (SGPT) 18 U/L (0-35); AST (SGOT) 25 U/L (14-36); Alkaline Phosphatase 136 U/L (38-126); Blood Urea Nitrogen 19 mg/dl (7-17); Calcium 8.1 mg/dl (8.4-10.2); Carbon Dioxide 19 mmol/L (22-30); Chloride 101 mmol/L (98-107); Glucose 114 mg/dl (70-99); Potassium 3.8 mmol/L (3.5-5.1); Sodium 134 mmol/L (135-145); Total Bilirubin 1.1 mg/dl (0.2-1.3); Total Protein 7.4 g/dl (6.3-8.2); eGFR > 60.00
[2024-06-08] MEDS: NSS 500 IV (13:06)
[2024-06-08] MEDS: ZITHROMAX INFUSION 250 IV (14:03)
[2024-06-08] MEDS: ROCEPHIN 1000 MG IV (14:03)
--- NOTE | 2024-06-08 14:08 | HPS.HSE ---
Addendum entered and electronically signed by Fredrick Esquivel MD 06/08/24 14:51:
In/out of fast AF
- missed daily Diltiazem CD 240 - gave stat dose at ER
- cont to monitor on TLM
Original Note:
Family Physician
-
Family Physician: John Palencia
Chief Complaint
-
Fver, chills, cough and body aches
History of Present Illness
HPI
68F HX Prx A-fib on Eliquis, Chronic HFpEF, HTN ,Scleroderma presenting to the emergency department with cough.
- past 5 days she has had URI like symtoms wiht fevers cough congestion runny nose.
- Today developed some diarrhea
- reports some bodyaches.
- has been having fevers and chills.
- Went to her PCP and tested negative for COVID and flu earlier in the week. and normal chest x-ray.
- Symptoms were not improving so she came in for further evaluation.
ROS
No chest pain. No shortness of breath. No vomiting.
Medical History
Past Medical History
Past Medical History: Reports Other
Additional Past Medical History:
Bronchiectasis / ILD
Alpha-1 Antitrypsin Deficiency (ZZ)
Scleroderma / CREST syndrome / Raynaud's
Hypertension
Paroxysmal Atrial Fibrillation
Chronic HFpEF
TAMMY Intolerant of PAP Therapy
Right DCIS
Anxiety / Depression
Past Surgical History: Reports Other
Additional Past Surgical History:
Right Lumpectomy
Right Mastectomy / Reconstruction
Rotator Cuff Repair
Robotic Right Pyeloplasty
PVI Ablation
Social History
Tobacco: Non-smoker
Alcohol: None
Drug: None
Family History
Family History: Other (Father: Alpha-1 Antitrypsin Deficiency)
Allergies / Home Medications
Allergies reflects when Allergies were last updated in [employer].
Home Medications with original date entered in [facility]
Allergy/Medication List:
Allergies
Allergy/AdvReac Type Severity Reaction Status Date / Time
codeine Allergy Hives, Verified 02/26/24 17:46
Itching
pseudoephedrine Allergy jittery Verified 02/26/24 17:46
Sulfa (Sulfonamide Allergy Hives, Verified 02/26/24 17:46
Antibiotics) itching
Home Medications
omeprazole 40 mg capsule,delayed release 40 mg PO DAILY Gastrointestinal issue 02/17/18
albuterol sulfate 90 mcg/actuation aerosol inhaler 2 puff inhalation R Q4HPRN PRN sob 06/07/18
anastrozole 1 mg tablet 1 mg PO HS Cancer 12/07/19
fluoxetine 20 mg capsule 20 mg PO DAILY Depression 05/12/20
apixaban 5 mg tablet (Eliquis) 5 mg PO BID Blood clot prevention/tx 09/11/20
diltiazem HCl 240 mg capsule,extended release 24 hr 240 mg PO DAILY Arrhythmia 09/11/20
atorvastatin 10 mg tablet 10 mg PO HS High cholesterol 01/31/22
guaifenesin 600 mg tablet, extended release 12 hr (Mucinex) 600 mg PO BIDPRN PRN cough 07/01/23
furosemide 40 mg tablet 80 mg (2 x 40 mg) PO DAILY Fluid retention/Swelling #0 tabs 07/07/23
cholecalciferol (vitamin D3) 25 mcg (1,000 unit) tablet (Vitamin D3) 25 mcg PO DAILY Supplement 12/18/23
diltiazem HCl 180 mg capsule,24 hr,extended release 180 mg PO QPM Anti-Inflammatory 12/18/23
famotidine 40 mg tablet (Pepcid) 40 mg PO HS Gastrointestinal Issue 12/18/23
benzonatate 200 mg capsule 200 mg PO TID PRN Cough #30 caps 12/19/23
cefdinir 300 mg capsule 300 mg PO BID #14 caps 12/19/23
doxycycline hyclate 100 mg capsule 100 mg PO Q12 #14 caps 12/19/23
guaifenesin 600 mg tablet, extended release 12 hr (Mucinex) 600 mg PO Q12H #14 tabs 12/19/23
Review of Systems
-
Constitutional: Reports No Symptoms
EENT: Reports No Symptoms
Respiratory: Reports See HPI and Cough
Cardiac: Reports No Symptoms
Abdomen/GI: Reports No Symptoms
: Reports No Symptoms
Musculoskeletal: Reports No Symptoms
Skin: Reports No Symptoms
Neurological: Reports No Symptoms
Endocrine: Reports No Symptoms
Hematologic/Lymphatic: Reports No Symptoms
Psych: Reports No Symptoms
Physical Exam
Vital Signs
Vital Signs
Temp Pulse Resp BP Pulse Ox
98 F 92 18 118/74 97
06/08/24 11:14 06/08/24 12:30 06/08/24 12:30 06/08/24 11:58 06/08/24 12:30
Physical Exam
General: No Apparent Distress, Conversant and Other (not toxic )
HEENT: NormoCephalic, Moist mucous membranes and Atraumatic
Respiratory: Rales (Tachypneic,, crackles at left base, left upper and right uppe)
Cardiac: S1/S2 and Regular Rhythm; No Murmur or Rub
GI: Soft, Non Tender, Non Distended and Normal Bowel Sounds; No Organomegaly
Rectal: Deferred by Provider
Musculoskeletal: No Clubbing, No Cyanosis and No Edema
Skin: No Rash
Neuro: Nonfocal/grossly intact
Laboratory Results
-
06/08/24 12:27
06/08/24 12:27
Laboratory Results
Total Bilirubin 1.1 mg/dl (0.2-1.3) 06/08/24 12:27
AST 25 U/L (14-36) 06/08/24 12:27
ALT 18 U/L (0-35) 06/08/24 12:27
Alkaline Phosphatase 136 U/L (38-126) H 06/08/24 12:27
Data Reviewed
-
Diagnostic Radiology: Report Reviewed by me
Medical Tests (Nuc Med, Echo, EKG etc): Report Reviewed by me
Lab Data: Labs Reviewed by me
Old Records: Reviewed
Impression/Plan
-
Selected Entries
06/08/24
11:14 06/08/24
12:00
Temp 98 F
Pulse 102 89
Resp Rate 26 20
Blood pressure 134/67
SaO2 92 93
Oxygen Mode of Delivery Room air
Laboratory Tests
06/08/24 06/08/24
12:27 12:28
WBC 12.4 H
Sodium 134 L
Potassium 3.8
Carbon Dioxide 19 L
BUN 19 H
Creatinine 0.8
eGFR > 60.00
Glucose 114 H
Calcium 8.1 L
Biv-Q-Wvapggumjqr Pept
Procalcitonin Pending
Pending
SARS-CoV-2 Antigen Negative
NEG Covid
NREG Flu A & B
CXR: There are new opacities involving the right upper, left upper and left lower lobes consistent with multifocal pneumonia.
Pending EKG
02/29/24 TTE
- LVEF 59% by volumetric assessment. Mild
- concentric LVH
- Diastolic function indeterminate due to atrial fibrillation.
- Normal right ventricular size and function.
- Mild to moderate mitral regurgitation.
- Mild aortic regurgitation.
- Mild tricuspid regurgitation. Estimated pulmonary artery pressure of 38 mmHg, assuming a right atrial pressure of 3 mmHg.
Last hospitalist admission: Date of Admission: 02/27/24 -Date of Discharge: 03/01/24
DC DXS:
1. Right lower lobe community-acquired pneumonia
2. Atrial fibrillation/atrial flutter with RVR
3. Acute hypoxic respiratory insufficiency
ASSESSMENT & PLAN
Multi focal PNA presumed CAP
Somewhat sepsis ( leucocytosis and tachypnea)
Afebrile at ER but reported subjective fever at home with chills
Acute hypoxic RI requires NC O2
Normotensive
- NEG Covid. NEG flu A and B
- check PCT and proBNP
- check LA
- BCx sent
- agree with IV CFTX and Azithromycin
- Supportive care including mucolytics, nebs, etc.
- c/w NC O2 to keep POx > 94 %
- Trend WCC , T curve
HX Chr HFpEF
LVEF 59 % per 02/29/24 TTE
Nl RV size and fynction
- No evidence of volume overload on exam.
- check ProBNP
- FILTER PRESS TENDER PO Frusemide 80 daily and 40 HS
- Follow I/Os, daily weights,
In NSR
HX Prx A Fib
Known to Dr. Herbert outpatient DCA
- FILTER PRESS TENDER Eliquis
- FILTER PRESS TENDER Diltiazem CD
Known Valvular heart dz ; stable
- Mild to moderate mitral regurgitation.
- Mild aortic regurgitation.
- Mild tricuspid regurgitation.
TAMMY
HX intolerant of PAP therapy.
- Has machine at home but never uses it.
- known nocturnal hypoxemia
Benign Hypertension
- Stable.
- Continue outpatient medications.
Scleroderma
CREST Syndrome
Raynaud's
- Stable.
- Continue usual supportive medications.
HX Breast Cancer
- s/p R mastectomy.
- Continue anastrazole for ongoing therapy.
DVT Prophylaxis: On Eliquis
Code: Full
IP TLM
[2024-06-08 14:35] LABS: Lactic Acid 1.5 mmol/L (0.7-2.0)
[2024-06-08 14:45] LABS: NT-proBNP 822 pg/ml
[2024-06-08] MEDS: CARDIZEM CD 240 MG PO (15:00)
[2024-06-08] MEDS: LOPRESSOR 5 MG IV (18:19)
--- NOTE | 2024-06-08 19:13 | PTCARENOTE ---
Received patient from ED on stretcher, stood and pivot to bed. Placed on tele #13 HR 130-140's MD made aware and Lopressor and cardiology consult ordered. Pt asymptomatic when having elevated HR. Oriented to room and use of call shook. Pt educated on
importance with keeping NC on due to admission dx Hypoxia and pt noted to be dyspneic. Pt continues on 3L O2, Call shook within reach.
[2024-06-08] MEDS: DUONEB 3 ML INH (20:01)
[2024-06-08] MEDS: ELIQUIS 5 MG PO (20:54)
[2024-06-08] MEDS: LASIX 40 MG PO (20:54)
[2024-06-08] MEDS: LIPITOR 10 MG PO (20:54)
[2024-06-08] MEDS: ARIMIDEX 1 MG PO (20:54)
[2024-06-08] MEDS: MUCINEX 600 MG PO (20:54)
[2024-06-08] MEDS: PEPCID 40 MG PO (20:55)
[2024-06-09] MEDS: LOPRESSOR 5 MG IV (01:08)
[2024-06-09 03:20] VITALS: BP 94/51
--- NOTE | 2024-06-09 04:14 | PTCARENOTE ---
Pt bathroom alarm on, stool on floor. Pt found sitting on toilet, naked with no O2. Slightly forgetful upon questioning about diarrhea. Dyspneic. Pt assisted back to bed and O2 put back in place. Pt able to catch breath and explain diarrhea has been
ongoing since Monday. Bed alarm placed and explained pt should not get up unassisted or remove O2. Pt verbalized understanding.
[2024-06-09 07:30] VITALS: BP 101/64
[2024-06-09 08:42] LABS: Hematocrit 35.1 % (37.0-47.0); Hemoglobin 11.9 g/dL (12.0-16.0); Mean Corp Hgb Conc. 33.9 g/dL (33.0-37.0); Mean Corpuscular Hgb 28.7 pg (27.0-31.0); Mean Corpuscular Volume 84.8 fL (81.0-99.0); Mean Platelet Volume 9.9 fL (7.4-10.4); Platelet Count 263 10^3/uL (130-400); Red Blood Cell Count 4.14 10^6/uL (4.20-5.40); Red Cell Dist. Width 14.1 % (11.5-14.5); White Blood Cell Count 10.5 10^3/uL (4.8-10.8)
--- NOTE | 2024-06-09 09:06 | CON.CAR ---
Consultation
Consultation Request
Date/Time Consultation Requested: 06/08/24 5:30 PM
Date/Time Consultation Performed: 06/09/2024 9:30 AM
Requesting Provider: Dr Jordan
Performing Provider: Dr Venita Herbert
Reason for Consultation: Atrial fibrillation/atrial tachycardia
Medical History
-
Chief Complaint: Shortness of breath
History of Present Illness:
She is well-known to me and is admitted with shortness of breath in the setting of multilobar pneumonia. She has history of atrial fibrillation status post pulmonary vein isolation in 2020 and had recurrence recently with pneumonia admission.
Similarly with current multilobar pneumonia she was found to be in rapid atrial tachycardia on presentation now better rate controlled on her usual medication. She denies chest pain, dizziness and syncope. She is flu and COVID-negative. She has
cough and shortness of breath. She tells me she had stuttering symptoms for about a week or so prior to coming to the hospital and she may have waited too long. She did have another chest x-ray which she tells me was okay but then became sicker
with symptoms. Currently on oxygen and oxygen levels are stable.
She has history of heart failure with preserved ejection fraction and secondary pulmonary hypertension which has been stable. She does have a tendency towards orthostatic hypotension in addition.
Atrial arrhythmias have been treated conservatively recently given no clear significant recurrence until now with PVI in 2020 however recent recurrence with pneumonia. She continues as an outpatient on diltiazem and oral anticoagulation.
She is followed closely by pulmonary interstitial lung disease, bronchiectasis, alpha one antitrypsin carrier status and sleep apnea is followed by pulmonary. Given that this is her 'fifth 'bout of upper respiratory infection/pneumonia as discussed
previously with pulmonary she thinks she may need testing for immunodeficiency.
Past Medical History
Past Medical History: Arrhythmias (Atrial fibrillation/atrial tachycardia status post pulmonary vein isolation 2020 with recurrence), Cancer (Right breast cancer treated), CHF (Heart failure with preserved ejection fraction and secondary pulmonary
hypertension), GERD, HTN, Hypercholesterolemia and Other (Interstitial lung disease, sleep apnea, carrier of alpha 1 antitrypsin deficiency, recurrent pneumonia; scleroderma/crest)
Past Surgical History: Cardiac (PVI 09/11/2020), Orthopedic (Rotator cuff repair), Urological (Robotic pyeloplasty) and Other (Right lumpectomy, right mastectomy with reconstruction 2018)
Social History
Tobacco: Non-Smoker
Employment: Retired
Family History
Family History: Other (Father alpha 1 antitrypsin, hypertension, mother hypertension and adrenal gland cancer, siblings with hypertension)
Allergies / Home Medications
Allergy/AdvReac Type Severity Reaction Status Date / Time
codeine Allergy Hives, Verified 06/08/24 11:14
Itching
pseudoephedrine Allergy jittery Verified 06/08/24 11:14
Sulfa (Sulfonamide Allergy Hives, Verified 06/08/24 11:14
Antibiotics) itching
�Medication �Instructions �Recorded �Confirmed �Type
omeprazole 40 mg capsule,delayed 40 mg PO DAILY Gastrointestinal 02/17/18 06/08/24 History
release issue
albuterol sulfate 90 mcg/actuation 2 puff inhalation R Q4HPRN PRN sob 06/07/18 06/08/24 History
aerosol inhaler
anastrozole 1 mg tablet 1 mg PO HS Cancer 12/07/19 06/08/24 History
fluoxetine 20 mg capsule 20 mg PO DAILY Depression 05/12/20 06/08/24 History
apixaban 5 mg tablet (Eliquis) 5 mg PO BID Blood clot 09/11/20 06/08/24 History
prevention/tx
atorvastatin 10 mg tablet 10 mg PO HS High cholesterol 01/31/22 06/08/24 History
famotidine 40 mg tablet (Pepcid) 40 mg PO HS Gastrointestinal Issue 12/18/23 06/08/24 History
acetaminophen 500 mg tablet 1,000 mg PO Q8HPRN PRN mild 06/08/24 06/08/24 History
(Tylenol Extra Strength) pain/fever
cholecalciferol (vitamin D3) 50 50 mcg PO DAILY 06/08/24 06/08/24 History
mcg (2,000 unit) tablet (Vitamin
D3)
denosumab 60 mg/mL subcutaneous 60 mg SC [id number] 06/08/24 06/08/24 History
syringe (Prolia)
diltiazem HCl 240 mg 240 mg PO DAILY 06/08/24 06/08/24 History
capsule,extended release 24 hr,
controlled
furosemide 80 mg tablet 40 mg PO HS 06/08/24 06/08/24 History
furosemide 80 mg tablet 80 mg PO DAILY 06/08/24 06/08/24 History
guaifenesin 600 mg tablet, 600 mg PO [id number] PRN cough 06/08/24 06/08/24 History
extended release 12 hr (Mucinex)
Review of Systems
-
History Source: Patient
All other systems: Negative unless noted
Respiratory: Cough and Trouble Breathing
Physical Exam
Vital Signs
Temp Pulse Resp BP Pulse Ox
97.4 F 106 22 94/51 95
06/09/24 07:00 06/09/24 07:00 06/09/24 07:00 06/09/24 03:20 06/09/24 07:00
Lab Results
06/09/24 08:18
Xdn-P-Ghdbpcotubv Pept 822 pg/ml 06/08/24 14:05
General: Coughing and oxygen in place
Heart: Distant heart sounds irregular
Lungs: Bilateral dry crackles and some expiratory wheezing/rhonchi
Extremities: No clubbing, cyanosis or edema bilaterally.
Neuro: Grossly nonfocal, awake, alert and oriented x3.
Impression / Plan
-
Primary carton catcher: Dr. Venita Herbert
Impression:
Recurrence of atrial tachycardia/atrial fibrillation in the setting of pneumonia again.
Status post pulmonary vein isolation 2020
Multilobar pneumonia
Multiple admissions for pneumonia
Chronic heart failure with preserved ejection fraction
proBNP 822 (Prior 02/29/2024 1380)
History of secondary pulmonary hypertension, diastolic dysfunction
Hypertension with history of orthostasis
Hyperlipidemia
CREST
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
Sleep apnea conservatively managed
Breast cancer treated 2019 mastectomy/anastrozole
Osteoporosis
ECHO 03/09/23: EF 60 to 65%, GLS -18.1%, mild MR, mild AI, mild TR, PAP 29 to 34 mmHg
ECHO 02/29/24: EF 59%, mild concentric LVH, mild to moderate MR, mild AR, mild TR, PAP 38 mmHg, no significant change compared to prior
Nuc stress test 08/12/2021: No significant active coronary artery disease
Right heart catheterization�05/13/2019 with PA: 50/32, mean PA pressure 38, PCWP 24, calculated Wood units 3.5. She was started on Lasix 40 mg daily at that time.
Plan:
Cardiac status stable. Medications altered and she is back on outpatient dose of diltiazem 240 mg twice daily for rate control of atrial tachycardia/atrial fibrillation. Status post pulmonary vein isolation in 2020 with some short recurrences but
a longer recurrence during prior admission for pneumonia. Heart rates acceptable currently for degree of illness. EKG is stable. life underwriter is stable with atrial fibrillation/atrial tachycardia. Both EKG and telemetry independently
reviewed by me.
Follow telemetry
Continue oral anticoagulation as prehospitalization
Continue diltiazem 240 mg twice daily
Given recurrence of atrial arrhythmias as an outpatient once recovered from significant pneumonia electrophysiology consultation for assessment for redo pulmonary vein isolation.
Continue treatment of multilobar pneumonia
Oxygen as needed
Given her complexities and possibility of immunodeficiency given recurrent events consider pulmonary consult.
She does not appear to be volume overloaded.
Continue current outpatient dose of Lasix and follow volume status (proBNP normal and low in her usual range)
Last lipid stable
Blood pressure stable
Have discussed with hospitalist physician and the primary service.
Data Reviewed
-
EKG: Tracing Personally Visualized and interpreted
Radiology: Image Personally Visualized and interpreted
CT Scan: Report Reviewed by me
Medical Tests (Nuc Med, Echo etc): Image Personally Visualized and interpreted and Report Reviewed by me
Labs: Labs Reviewed by me
Old Records: Reviewed
[2024-06-09 09:13] LABS: Blood Urea Nitrogen 17 mg/dl (7-17); Calcium 7.8 mg/dl (8.4-10.2); Carbon Dioxide 23 mmol/L (22-30); Chloride 104 mmol/L (98-107); Estimated Creatinine Clearance 60 ml/min; Glucose 104 mg/dl (70-99); Magnesium 2.1 mg/dl (1.6-2.3); Potassium 3.4 mmol/L (3.5-5.1); Sodium 136 mmol/L (135-145); eGFR > 60.00
[2024-06-09] MEDS: LASIX 80 MG PO (10:02)
[2024-06-09] MEDS: CARDIZEM CD 240 MG PO ×2 (10:02→20:39)
[2024-06-09] MEDS: ZITHROMAX 500 MG PO (10:02)
[2024-06-09] MEDS: PROZAC 20 MG PO (10:03)
[2024-06-09] MEDS: MUCINEX 600 MG PO ×2 (10:03→20:39)
[2024-06-09] MEDS: VITAMIN D3 (cholecalciferol) 50 MCG PO (10:03)
[2024-06-09] MEDS: PROTONIX 40 MG PO (10:03)
[2024-06-09] MEDS: ELIQUIS 5 MG PO ×2 (10:03→20:41)
[2024-06-09 11:00] VITALS: BP 98/67
--- NOTE | 2024-06-09 11:34 | W.PN.HOSP.TC ---
Today's Communication/Plan
-
Monitor vital signs see plan
Continue with antibiotics
Check EKG
Change Cardizem dose to twice daily which is the correct dose
Continue Eliquis
Continue Lasix
Replete potassium
bcx
Assessment / Plan
Assessment / Plan
General: No Apparent Distress, Conversant and Other (not toxic )
HEENT: NormoCephalic, Moist mucous membranes and Atraumatic
Respiratory:CTA,+ crackles
Cardiac: S1/S2 and iregular Rhythm
GI: Soft, Non Tender, Non Distended and Normal Bowel Sounds
Musculoskeletal: No Edema
Neuro: Nonfocal/grossly intact
Multi focal PNA presumed CAP
Sepsis secondary to above, check blood culture. Was never drawn on admission
Acute hypoxic respiratory insufficiency, currently on 3 L, wean oxygen as tolerated
- NEG Covid. NEG flu A and B
- cw IV CFTX and Azithromycin
- Supportive care including mucolytics, nebs, etc.
HX Chr HFpEF
LVEF 59 % per 02/29/24 TTE
- No evidence of volume overload on exam.
- ProBNP not high it used to
- PSYCHIATRIC SECURITY NURSE PO Frusemide 80 daily and 40 HS
- Follow I/Os, daily weights
Hypokalemia
Replete
in and out of afib/aflutter
HX Prx A Fib
Known to Dr. Herbert outpatient [facility]
- PSYCHIATRIC SECURITY NURSE Eliquis
- PSYCHIATRIC SECURITY NURSE Diltiazem CD; changed to BID which is the right dose per patient
Known Valvular heart dz ; stable
- Mild to moderate mitral regurgitation.
- Mild aortic regurgitation.
- Mild tricuspid regurgitation.
TAMMY
HX intolerant of PAP therapy.
- Has machine at home but never uses it.
- known nocturnal hypoxemia
Benign Hypertension
- Stable.
- Continue outpatient medications.
Scleroderma
CREST Syndrome
Raynaud's
- Stable.
- Continue usual supportive medications.
HX Breast Cancer
- s/p R mastectomy.
- Continue anastrazole for ongoing therapy.
DVT Prophylaxis: On Eliquis
Code: Full
I spent a total of 52 minutes with the patient or on the floor. More than 50% of this time involved counseling and coordination of care.
Anticipated Discharge: > 48 hours
Subjective/Interval History
-
Date of Service: June 09, 2024
has some son
Objective Data
-
Labs:
Laboratory Results
06/09/24
08:18
WBC 10.5
Hgb 11.9 L
Hct 35.1 L
Plt Count 263
Sodium 136
Potassium 3.4 L
Chloride 104
Carbon Dioxide 23
BUN 17
Creatinine 0.8
Glucose 104 H
Calcium 7.8 L
Vital Signs:
Vital Signs
Temp Pulse Resp BP Pulse Ox
97.4 F 83 22 101/64 95
06/09/24 07:00 06/09/24 07:30 06/09/24 07:00 06/09/24 07:30 06/09/24 07:00
I&O
06/08/24 06/09/24 06/10/24
06:59 06:59 06:59
Intake Total 480 / 480
Balance 480 / 480
[2024-06-09] MEDS: TYLENOL 650 MG PO (11:40)
[2024-06-09] MEDS: KCL 40 MEQ PO (11:53)
[2024-06-09] MEDS: MAALOX 30 ML PO (13:24)
[2024-06-09] MEDS: STERILE WATER FOR INJECTION 10 ML IV (13:24)
[2024-06-09] MEDS: ROCEPHIN 1000 MG IV (13:24)
--- NOTE | 2024-06-09 14:00 | CON.PUL ---
Consultation
Consultation Request
Date/Time Consultation Requested: 06/09/24
Date/Time Consultation Performed: 06/09/24
Performing Provider: Rochelle
Reason for Consultation: SOB/PNA
Medical History
-
History of Present Illness:
Patient is a 68-year-old female with previous history of bronchiectasis, ILD, scleroderma, crest syndrome presenting to ER with persistent cough, URI symptoms including fever, congestion, runny nose. She did develop some diarrhea. She has body
aches, fever chills. She went to her PCP and was tested negative for COVID and flu. Chest x-ray demonstrating right upper lobe infiltrate suspicious for pneumonia. She is now admitted for pneumonia and placed on IV antibiotics.
Past Medical History
Past Medical History: Other (see list below)
Social History
Tobacco: Non-smoker
Alcohol: None
Drug: None
Family History
Family History: Reviewed & Not Pertinent
Allergies / Home Medications
Allergies
Allergy/AdvReac Type Severity Reaction Status Date / Time
codeine Allergy Hives, Verified 06/08/24 11:14
Itching
pseudoephedrine Allergy jittery Verified 06/08/24 11:14
Sulfa (Sulfonamide Allergy Hives, Verified 06/08/24 11:14
Antibiotics) itching
Home Medications
�Medication �Instructions �Recorded �Confirmed �Last Taken �Type
omeprazole 40 mg capsule,delayed 40 mg PO DAILY Gastrointestinal 02/17/18 06/09/24 06/07/24 08:00 History
release issue
albuterol sulfate 90 mcg/actuation 2 puff inhalation R Q4HPRN PRN sob 06/07/18 06/08/24 06/10/23 History
aerosol inhaler
anastrozole 1 mg tablet 1 mg PO HS Cancer 12/07/19 06/09/24 12/17/23 History
fluoxetine 20 mg capsule 20 mg PO DAILY Depression 05/12/20 06/09/24 06/09/24 08:00 History
apixaban 5 mg tablet (Eliquis) 5 mg PO BID Blood clot 09/11/20 06/09/24 06/09/24 08:00 History
prevention/tx
atorvastatin 10 mg tablet 10 mg PO HS High cholesterol 01/31/22 06/08/24 12/17/23 History
famotidine 40 mg tablet (Pepcid) 40 mg PO HS Gastrointestinal Issue 12/18/23 06/08/24 12/17/23 History
acetaminophen 500 mg tablet 1,000 mg PO Q8HPRN PRN mild 06/08/24 06/08/24 Unknown History
(Tylenol Extra Strength) pain/fever
cholecalciferol (vitamin D3) 50 50 mcg PO DAILY 06/08/24 06/08/24 Unknown History
mcg (2,000 unit) tablet (Vitamin
D3)
denosumab 60 mg/mL subcutaneous 60 mg SC [id number] 06/08/24 06/08/24 Unknown History
syringe (Prolia)
diltiazem HCl 240 mg 240 mg PO BID 06/08/24 06/09/24 06/09/24 08:00 History
capsule,extended release 24 hr,
controlled
furosemide 80 mg tablet 40 mg PO HS 06/08/24 06/09/24 06/07/24 22:00 History
furosemide 80 mg tablet 80 mg PO DAILY 06/08/24 06/09/24 06/09/24 08:00 History
guaifenesin 600 mg tablet, 600 mg PO [id number] PRN cough 06/08/24 06/08/24 Unknown History
extended release 12 hr (Mucinex)
Review of Systems
-
History Source: Patient
All other systems: Negative unless noted
Vitals / Labs / Diagnostic Testing
Vital Signs
Temp Pulse Resp BP Pulse Ox
97.2 F 103 20 98/67 94
06/09/24 11:00 06/09/24 11:00 06/09/24 11:00 06/09/24 11:00 06/09/24 11:00
Lab Data
06/09/24 08:18
06/09/24 08:18
Microbiology
06/08/24 12:27 Nasal Swab Influenza Types A & B (TORREY) - Final
Negative for Influenza A & B, NAAT
Negative results must be combined with clinical observations
and patient history.
Nucleic Acid Amplification test (NAAT)performed on the
[employer] platform.
Diagnostic Testing:
Physical Exam
-
HEENT: Normocephalic, Anicteric, Moist Mucous Membranes and Other (voice hoarse)
Cardiovascular: S1/S2 and Regular Rhythm
Respiratory: Rales and Non-Labored Respirations
GI: Soft, Non Distended and Non Tender
Neurology: Awake, Alert, Oriented and No Motor Deficits
Skin: Warm, Dry and Good Color
General: Comfortable and Other (NAD)
Assessment
-
Patient is a 68-year-old female with previous history of bronchiectasis, ILD, scleroderma, crest syndrome presenting to ER with persistent cough, URI symptoms including fever, congestion, runny nose. She did develop some diarrhea. She has body
aches, fever chills. She went to her PCP and was tested negative for COVID and flu. Chest x-ray demonstrating right upper lobe infiltrate suspicious for pneumonia. She is now admitted for pneumonia and placed on IV antibiotics.
RUL pneumonia
History of recurrent PNA in setting on bronchiectasis
Leukocytosis
Acute respiratory insufficiency, on 3L
Hyponatremia, mild
Hypokalemia
Conditions present prior admission:
History of bronchiectasis/ILD- Follows up with Dr. Brar
PFT 04/07/23: FVC 2.43/89%, FEV1 1.89/91%, ratio 70. TLC 4.7/110%, DLCO 7.17/39%.
on Spiriva/Symbicort
Alpha one AT [facility], not on augmentation.
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
History of paroxysmal atrial fibrillation
Chronic heart failure with preserved ejection fraction
Obstructive sleep apnea- Intolerant to CPAP
History of esophageal stricture status post dilation
Hypertension
History of breast cancer status post right mastectomy on anastrozole
Plan
Hypoxemia noted on arrival, O2 mary anne 78%, otherwise was 90-92 on RA, placed on low supp O2
No oxygen history needed at home
Home O2 evaluation eventually
Prior history of lung disease is noted including bronchiectasis, ILD
Follows with Maykel last PNA in Feb
She has difficulty producing sputum, can obtain if able
CXR/CT obtained indicating multi-opacities but RUL infiltrate predominant
Agree with empiric IV abx
Would repeat imaging in next 48 -72 hours
Other imaging reviewed in past, history of ILD/bronchiectasis
Will also try low dose PO steroids
Prior ECHO results are reviewed indicating stable EF, no sign disease
ProBNP neg on admission
Resume home cardiac meds
Cards following
Prior speech evaluation, has history of esophageal strictures in the past. She denies any swallowing problems.
MONEY LAUNDERING INVESTIGATOR saw pt on 07/02 and GI consult recommended, which will be done as outpatient
Continue diet as per MONEY LAUNDERING INVESTIGATOR, and pt to see GI in office
Continue aspiration precautions
Patient has history of CREST-not on any therapy. Follows up with Dr. Alvares.
She notes she has been stable from that POV
Will need outpatient pulmonary evaluation in our office for PFTs and 6MWT
Reviewed with patient
Follow-up with Dr. Brar after DC
We will follow
Diagnostic Data
Chest X-Ray: 06/08-There are new opacities involving the right upper, left upper and left lower lobes consistent with multifocal pneumonia.
CT Scan:
CT chest performed 07/02/2023: Worsening bilateral multifocal infiltrates/stable bronchiectasis. No pleural effusion.
Persistent bilateral infiltrates compared to 06/11/2023.
CT chest 06/11/2023:
1.). Stable moderately extensive bronchiectasis throughout both lungs
2). Stable 2 cm enlarged pretracheal lymph node at the level of the damaris.
3). New patchy areas of confluent airspace disease in the right middle lobe and lingula which may reflect pneumonia or mucoid impaction
Echocardiogram 03/09/2023: Reviewed, showed normal LVEF. EF 60-65%. Normal right ventricle size and function. No significant valvular abnormalities. Pulmonary hypertension 29-34 mmHg.
PFT's:
Reports and relevant images were personally reviewed.
Total time spent on this consultation __76__ minutes which includes review of history, physical exam, medications, laboratory data, personal review of imaging, extensive review of outpatient records, discussion with care team and respiratory therapy.
[2024-06-09 15:00] VITALS: BP 95/53
--- NOTE | 2024-06-09 15:54 | CM ---
Patient met at bedside
IA Completed
CM Consult completed
Dx: Acute hypoxia
On oxygen
PMH: afib, htn, chf, scleroderma
Lives in an apartment 2nd floor, 14 steps to the apt
PLOF: Independent
Denies DME
has had [facility], Denies rehab
PCP: John Palencia
Pharmacy: [facility]
PLAN: Home, currently no needs, continue to follow for needs
[2024-06-09] MEDS: DELTASONE 40 MG PO (16:34)
[2024-06-09 19:22] VITALS: BP 106/58
[2024-06-09] MEDS: LIPITOR 10 MG PO (20:40)
[2024-06-09] MEDS: ARIMIDEX 1 MG PO (20:41)
[2024-06-09] MEDS: PEPCID 40 MG PO (20:41)
[2024-06-09] MEDS: LASIX 40 MG PO (20:41)
[2024-06-09] MEDS: DUONEB 3 ML INH (23:05)
[2024-06-09 23:25] VITALS: BP 121/75
[2024-06-09] MEDS: TESSALON PERLES 100 MG PO (23:31)
[2024-06-10 03:17] VITALS: BP 134/64
[2024-06-10 05:18] VITALS: BMI 29.7
[2024-06-10 06:05] LABS: Hematocrit 34.7 % (37.0-47.0); Hemoglobin 12.1 g/dL (12.0-16.0); Mean Corp Hgb Conc. 34.9 g/dL (33.0-37.0); Mean Corpuscular Hgb 29.1 pg (27.0-31.0); Mean Corpuscular Volume 83.4 fL (81.0-99.0); Mean Platelet Volume 10.2 fL (7.4-10.4); Platelet Count 273 10^3/uL (130-400); Red Blood Cell Count 4.16 10^6/uL (4.20-5.40); Red Cell Dist. Width 14.1 % (11.5-14.5); White Blood Cell Count 8.7 10^3/uL (4.8-10.8)
[2024-06-10 06:40] LABS: Blood Urea Nitrogen 28 mg/dl (7-17); Calcium 8.4 mg/dl (8.4-10.2); Carbon Dioxide 17 mmol/L (22-30); Chloride 107 mmol/L (98-107); Estimated Creatinine Clearance 60 ml/min; Glucose 136 mg/dl (70-99); Potassium 4.6 mmol/L (3.5-5.1); Sodium 136 mmol/L (135-145); eGFR > 60.00
[2024-06-10 07:39] VITALS: BP 98/55
[2024-06-10] MEDS: DELTASONE 40 MG PO (08:05)
[2024-06-10] MEDS: PROZAC 20 MG PO (08:05)
[2024-06-10] MEDS: ZITHROMAX 500 MG PO (08:05)
[2024-06-10] MEDS: MUCINEX 600 MG PO ×2 (08:05→21:11)
[2024-06-10] MEDS: LASIX 80 MG PO (08:05)
[2024-06-10] MEDS: PROTONIX 40 MG PO (08:05)
[2024-06-10] MEDS: ELIQUIS 5 MG PO ×2 (08:06→21:11)
[2024-06-10] MEDS: VITAMIN D3 (cholecalciferol) 50 MCG PO (08:06)
[2024-06-10] MEDS: CARDIZEM CD PO (08:14)
[2024-06-10 10:52] VITALS: BP 109/67
--- NOTE | 2024-06-10 12:31 | W.PN.CARDCBS ---
Today's Communication / Plan
-
Cardiac stable.
Continue diltiazem
Continue anticoagulation
Electrophysiology appointment set up.
Continue other cardiac medications.
We will sign off.
Please reconsult us if new issues develop.
Impression / Plan
-
Primary die machine operator: Dr. Venita Herbert
Impression:
Recurrence of atrial tachycardia/atrial fibrillation in the setting of pneumonia again.
Status post pulmonary vein isolation 2020
Multilobar pneumonia
Multiple admissions for pneumonia
Chronic heart failure with preserved ejection fraction
proBNP 822 (Prior 02/29/2024 1380)
History of secondary pulmonary hypertension, diastolic dysfunction
Hypertension with history of orthostasis
Hyperlipidemia
CREST
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
Sleep apnea conservatively managed
Breast cancer treated 2019 mastectomy/anastrozole
Osteoporosis
ECHO 03/09/23: EF 60 to 65%, GLS -18.1%, mild MR, mild AI, mild TR, PAP 29 to 34 mmHg
ECHO 02/29/24: EF 59%, mild concentric LVH, mild to moderate MR, mild AR, mild TR, PAP 38 mmHg, no significant change compared to prior
Nuc stress test 08/12/2021: No significant active coronary artery disease
Right heart catheterization�05/13/2019 with PA: 50/32, mean PA pressure 38, PCWP 24, calculated Wood units 3.5. She was started on Lasix 40 mg daily at that time.
Plan:
Cardiac status stable. Continue diltiazem 240 mg twice daily for rate control of atrial tachycardia/atrial fibrillation. Status post pulmonary vein isolation in 2020 with some short recurrences but a longer recurrence during prior admission for
pneumonia. Heart rates acceptable currently for degree of illness. EKG is stable. monitor tech is stable with atrial fibrillation/atrial tachycardia. Both EKG and telemetry independently reviewed by me.
Continue oral anticoagulation as prehospitalization
Continue diltiazem 240 mg twice daily
Given recurrence of atrial arrhythmias as an outpatient once recovered from significant pneumonia electrophysiology consultation for assessment for redo pulmonary vein isolation.
We have set up follow-up with electrophysiology on discharge.
Continue treatment of multilobar pneumonia
Oxygen as needed
Given her complexities and possibility of immunodeficiency pulmonary following.
She does not appear to be volume overloaded.
Continue current outpatient dose of Lasix and follow volume status (proBNP normal and low in her usual range)
Last lipid stable
Blood pressure stable
Today I have independently reviewed her telemetry and labs.
Stable from a cardiac point of view. Will sign off. Please reconsult us if new cardiac issues develop.
Progress Note - Yacht Captain
Subjective
Date of Service: June 10, 2024
She has cough and shortness of breath but feels better today than yesterday.
Objective
Labs:
06/10/24 05:19
06/10/24 05:19
Labs
Hgb 12.1 g/dL (12.0-16.0) 06/10/24 05:19
Hct 34.7 % (37.0-47.0) L 06/10/24 05:19
Plt Count 273 10^3/uL (130-400) 06/10/24 05:19
Sodium 136 mmol/L (135-145) 06/10/24 05:19
Potassium 4.6 mmol/L (3.5-5.1) D 06/10/24 05:19
BUN 28 mg/dl (7-17) H 06/10/24 05:19
Creatinine 0.8 mg/dL (0.6-1.0) 06/10/24 05:19
Glucose 136 mg/dl (70-99) H 06/10/24 05:19
Vital Signs and I&O:
Vital Signs
Temp Pulse Resp BP Pulse Ox
97.5 F 96 17 109/67 97
06/10/24 10:52 06/10/24 10:52 06/10/24 10:52 06/10/24 10:52 06/10/24 10:52
Vital Signs
Temp Pulse Resp BP Pulse Ox
97.5 F 96 17 109/67 97
06/10/24 10:52 06/10/24 10:52 06/10/24 10:52 06/10/24 10:52 06/10/24 10:52
Intake & Output
06/08/24 06/09/24 06/10/24 06/11/24
06:59 06:59 06:59 06:59
Intake Total 480 / 480 960 / 960
Balance 480 / 480 960 / 960
Physical Exam
Physical Exam
General: Well developed, well nourished in NAD.
Heart: Distant heart sounds irregular
Lungs: Coarse breath sounds with rhonchi
Extremities: No clubbing, cyanosis or edema bilaterally.
Neuro: Grossly nonfocal, awake, alert and oriented x3.
--- NOTE | 2024-06-10 12:51 | W.PN.PUL3 ---
Today's Communication / Plan
-
Continue antibiotics-ceftriaxone/Zithromax-transition to oral antibiotics upon discharge-complete 7 days
Continue mucolytics
Will add Acapella device
Nebulizers as needed
Oxygen has been weaned off
Follow cultures
Chest x-ray tomorrow 06/11/2024
Restart Symbicort/Spiriva upon discharge
Hopeful discharge in the next 24 hours
Assessment
-
Patient is a 68-year-old female with previous history of bronchiectasis, ILD, scleroderma, crest syndrome presenting to ER with persistent cough, URI symptoms including fever, congestion, runny nose. She did develop some diarrhea. She has body
aches, fever chills. She went to her PCP and was tested negative for COVID and flu. Chest x-ray demonstrating right upper lobe infiltrate suspicious for pneumonia. She is now admitted for pneumonia and placed on IV antibiotics.
RUL pneumonia
History of recurrent PNA in setting on bronchiectasis
Leukocytosis
Acute respiratory insufficiency, on 3L
Hyponatremia, mild
Hypokalemia
Conditions present prior admission:
History of bronchiectasis/ILD- Follows up with Dr. Brar
PFT 04/07/23: FVC 2.43/89%, FEV1 1.89/91%, ratio 70. TLC 4.7/110%, DLCO 7.17/39%.
on Spiriva/Symbicort
Alpha one AT [facility], not on augmentation.
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
History of paroxysmal atrial fibrillation
Chronic heart failure with preserved ejection fraction
Obstructive sleep apnea- Intolerant to CPAP
History of esophageal stricture status post dilation
Hypertension
History of breast cancer status post right mastectomy on anastrozole
Plan
Hypoxemia noted on arrival, O2 mary anne 78%, otherwise was 90-92 on RA, placed on low supp O2
Oxygen has been weaned off
Oxygen assessment 06/10/2024: 91% with ambulation. No supplemental oxygen needed.
Prior history of lung disease is noted including bronchiectasis, ILD
Follows with bernabe Brar PNA in Feb
She has difficulty producing sputum, can obtain if able-still pending has not been able to produce.
CXR/CT obtained indicating multi-opacities but RUL infiltrate predominant
Other imaging reviewed in past, history of ILD/bronchiectasis
Agree with empiric IV abx-ceftriaxone/Azithromycin. Hopefully can transition to oral antibiotics in the next 24 hours.
Repeat chest x-ray 06/11/2024.
-
Continues to report coughing and difficulty expectorating
Continue prednisone taper for now-decrease by 10 mg every 72 hours to off.
Continue mucolytic
Encouraged good hydration
DuoNebs as needed-not bronchospastic.
Add Acapella device
Patient will restart Symbicort/Spiriva after discharge. She has not been using it for several months.
Prior ECHO results are reviewed indicating stable EF, no sign disease
ProBNP neg on admission
Resume home cardiac meds
Cards following
Prior speech evaluation, has history of esophageal strictures in the past. She denies any swallowing problems.
DISTRIBUTION SPECIALIST saw pt on 07/02 and GI consult recommended, which will be done as outpatient
Continue diet as per DISTRIBUTION SPECIALIST, and pt to see GI in office
Continue aspiration precautions
Patient has history of CREST-not on any therapy. Follows up with Dr. Alvares.
She notes she has been stable from that POV
Will need outpatient pulmonary evaluation in our office for PFTs and 6MWT
Follow-up with Dr. Brar after DC
We will follow
Hopeful discharge planning if continues to improve in the next 24 hours.
Diagnostic Data
Chest X-Ray: 06/08-There are new opacities involving the right upper, left upper and left lower lobes consistent with multifocal pneumonia.
CT Scan:
CT chest performed 07/02/2023: Worsening bilateral multifocal infiltrates/stable bronchiectasis. No pleural effusion.
Persistent bilateral infiltrates compared to 06/11/2023.
CT chest 06/11/2023:
1.). Stable moderately extensive bronchiectasis throughout both lungs
2). Stable 2 cm enlarged pretracheal lymph node at the level of the damaris.
3). New patchy areas of confluent airspace disease in the right middle lobe and lingula which may reflect pneumonia or mucoid impaction
Echocardiogram 03/09/2023: Reviewed, showed normal LVEF. EF 60-65%. Normal right ventricle size and function. No significant valvular abnormalities. Pulmonary hypertension 29-34 mmHg.
PFT's:
Reports and relevant images were personally reviewed.
Subjective Data
-
Date of Service:
Date of Service: June 10, 2024
Objective Data
Data Reviewed
Vital Signs / I&O / Oxygen:
Vital Signs
Temp Pulse Resp BP Pulse Ox
97.5 F 96 17 109/67 97
06/10/24 10:52 06/10/24 10:52 06/10/24 10:52 06/10/24 10:52 06/10/24 10:52
Intake and Output
06/09/24 06/10/24 06/11/24
06:59 06:59 06:59
Intake Total 480 / 480 960 / 960
Balance 480 / 480 960 / 960
SaO2 97
Nasal Cannula flow liters per 2
minute
Physical Exam
General: Respiratory Distress (none at rest) and Comfortable
HEENT: Normocephalic
Cardiovascular: S1-S2
Respiratory: Wheeze (n) and Crackles
GI: Soft and Non Distended
Neurology: Awake, Alert and AO x 3
Skin: Warm
Labs/Micro/Reports
Lab Data
06/10/24 05:19
06/10/24 05:19
Microbiology
06/09/24 11:51 Blood/Venous Blood Culture - Preliminary
No Growth in 24 hours- Final report to follow
06/09/24 11:12 Blood/Venous Blood Culture - Preliminary
No Growth in 24 hours- Final report to follow
06/08/24 12:27 Nasal Swab Influenza Types A & B (TORREY) - Final
Negative for Influenza A & B, NAAT
Negative results must be combined with clinical observations
and patient history.
Nucleic Acid Amplification test (NAAT)performed on the
[employer] platform.
--- NOTE | 2024-06-10 14:18 | W.PN.HOSP.TC ---
Today's Communication/Plan
-
f/u cxr tomorrow
continue abx
home o2 eval
Assessment / Plan
Assessment / Plan
Multi focal PNA presumed CAP
Sepsis secondary to above
Acute hypoxic respiratory insufficiency
- NEG Covid. NEG flu A and B
- blood cs x2 sets negative
- weaned off to 1 L NC, home o2 evaluation ordered.
- cw IV CFTX and Azithromycin
- Supportive care including mucolytics, nebs, etc.
HX Chr HFpEF
LVEF 59 % per 02/29/24 TTE
- No evidence of volume overload on exam.
- ProBNP not high it used to
- SENIOR MARKETING SPECIALIST PO Frusemide 80 daily and 40 HS
- Follow I/Os, daily weights
Hypokalemia
- replace PRN
in and out of afib/aflutter
HX Prx A Fib
Known to Dr. Herbert outpatient [facility]
- SENIOR MARKETING SPECIALIST Eliquis
- SENIOR MARKETING SPECIALIST Diltiazem CD; changed to BID which is the right dose per patient
Known Valvular heart dz ; stable
- Mild to moderate mitral regurgitation.
- Mild aortic regurgitation.
- Mild tricuspid regurgitation.
TAMMY
HX intolerant of PAP therapy.
- Has machine at home but never uses it.
- known nocturnal hypoxemia
Benign Hypertension
- Stable.
- Continue outpatient medications.
Scleroderma
CREST Syndrome
Raynaud's
- Stable.
- Continue usual supportive medications.
HX Breast Cancer
- s/p R mastectomy.
- Continue anastrazole for ongoing therapy.
DVT Prophylaxis: On Eliquis
Code: Full
Anticipated Discharge: Within 24 hours
Subjective/Interval History
-
Date of Service: June 10, 2024
Patient continues to have some dry cough
Remains on oxygen through nasal cannula about 1 L only
Afebrile overnight
Objective Data
-
Labs:
Laboratory Results
06/10/24
05:19
WBC 8.7
Hgb 12.1
Hct 34.7 L
Plt Count 273
Sodium 136
Potassium 4.6 D
Chloride 107
Carbon Dioxide 17 L
BUN 28 H
Creatinine 0.8
Glucose 136 H
Calcium 8.4
Vital Signs:
Vital Signs
Temp Pulse Resp BP Pulse Ox
97.5 F 96 17 109/67 97
06/10/24 10:52 06/10/24 10:52 06/10/24 10:52 06/10/24 10:52 06/10/24 10:52
I&O
06/09/24 06/10/24 06/11/24
06:59 06:59 06:59
Intake Total 480 / 480 960 / 960
Balance 480 / 480 960 / 960
Review of Systems
-
Respiratory: Reports Cough and Trouble Breathing
Cardiac: Reports No Symptoms
Abdomen/GI: Reports No Symptoms
Physical Exam
-
General: No Apparent Distress and Comfortable
HEENT: Negative Oxygen
Respiratory: Negative Wheezes
Cardiac: Regular Rhythm and S1/S2; Negative Murmur or Rub
GI: Soft, Nontender and Nondistended
Musculoskeletal: No Edema
Neuro: Awake, Alert, Oriented, No Motor Deficits and Nonfocal/Grossly Intact
Psych: Calm
[2024-06-10] MEDS: STERILE WATER FOR INJECTION 10 ML IV (14:29)
[2024-06-10] MEDS: ROCEPHIN 1000 MG IV (14:30)
[2024-06-10 15:42] VITALS: BP 108/71
--- NOTE | 2024-06-10 16:45 | CM ---
Pt weaned off oxygen .
She said she will be dc tomorrow.
She will ask a friend to drive her home.
IMM reviewed signed on chart.
Offered Vn she declined need.
PLAN Home no needs
[2024-06-10 19:00] VITALS: BP 117/73
[2024-06-10] MEDS: TESSALON PERLES 100 MG PO (20:10)
[2024-06-10] MEDS: DUONEB 3 ML INH (20:14)
[2024-06-10] MEDS: ARIMIDEX 1 MG PO (21:11)
[2024-06-10] MEDS: PEPCID 40 MG PO (21:11)
[2024-06-10] MEDS: LIPITOR 10 MG PO (21:12)
[2024-06-10] MEDS: CARDIZEM CD 240 MG PO (21:12)
[2024-06-10] MEDS: LASIX 40 MG PO (21:12)
[2024-06-10 23:00] VITALS: BP 131/73
[2024-06-11 03:00] VITALS: BP 107/67
[2024-06-11] MEDS: TESSALON PERLES 100 MG PO ×2 (04:26→08:40)
[2024-06-11 05:53] LABS: Hematocrit 35.3 % (37.0-47.0); Hemoglobin 12.1 g/dL (12.0-16.0); Mean Corp Hgb Conc. 34.3 g/dL (33.0-37.0); Mean Corpuscular Hgb 28.8 pg (27.0-31.0); Mean Platelet Volume 9.7 fL (7.4-10.4); Platelet Count 379 10^3/uL (130-400); Red Cell Dist. Width 14.2 % (11.5-14.5)
[2024-06-11 06:16] LABS: Blood Urea Nitrogen 32 mg/dl (7-17); Calcium 8.8 mg/dl (8.4-10.2); Carbon Dioxide 18 mmol/L (22-30); Chloride 105 mmol/L (98-107); Estimated Creatinine Clearance 60 ml/min; Glucose 109 mg/dl (70-99); Potassium 3.6 mmol/L (3.5-5.1); Sodium 137 mmol/L (135-145); eGFR > 60.00
[2024-06-11 07:25] VITALS: BP 117/61
[2024-06-11] MEDS: MUCINEX 600 MG PO (08:39)
[2024-06-11] MEDS: PROTONIX 40 MG PO (08:39)
[2024-06-11] MEDS: ZITHROMAX 500 MG PO (08:39)
[2024-06-11] MEDS: VITAMIN D3 (cholecalciferol) 50 MCG PO (08:40)
[2024-06-11] MEDS: PROZAC 20 MG PO (08:40)
[2024-06-11] MEDS: LASIX 80 MG PO (08:40)
[2024-06-11] MEDS: CARDIZEM CD 240 MG PO (08:40)
[2024-06-11] MEDS: DELTASONE 40 MG PO (08:40)
[2024-06-11] MEDS: ELIQUIS 5 MG PO (08:44)
--- NOTE | 2024-06-11 11:09 | W.PN.PUL3 ---
Today's Communication / Plan
-
Transition to oral antibiotics to complete 7 days
Patient to restart inhalers upon discharge
Continue antitussives
Prednisone taper
Short-term outpatient pulmonary follow-up
Assessment
-
Patient is a 68-year-old female with previous history of bronchiectasis, ILD, scleroderma, crest syndrome presenting to ER with persistent cough, URI symptoms including fever, congestion, runny nose. She did develop some diarrhea. She has body
aches, fever chills. She went to her PCP and was tested negative for COVID and flu. Chest x-ray demonstrating right upper lobe infiltrate suspicious for pneumonia. She is now admitted for pneumonia and placed on IV antibiotics.
RUL pneumonia
History of recurrent PNA in setting on bronchiectasis
Leukocytosis
Acute respiratory insufficiency, on 3L
Hyponatremia, mild
Hypokalemia
Conditions present prior admission:
History of bronchiectasis/ILD- Follows up with Dr. Brar
PFT 04/07/23: FVC 2.43/89%, FEV1 1.89/91%, ratio 70. TLC 4.7/110%, DLCO 7.17/39%.
on Spiriva/Symbicort
[facility], not on augmentation.
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
History of paroxysmal atrial fibrillation
Chronic heart failure with preserved ejection fraction
Obstructive sleep apnea- Intolerant to CPAP
History of esophageal stricture status post dilation
Hypertension
History of breast cancer status post right mastectomy on anastrozole
Plan
Clinically improved.
Afebrile
No complaints coughing.
No significant phlegm production.
Oxygen assessment 06/10/2024: 91% with ambulation. No supplemental oxygen needed.
Prior history of lung disease is noted including bronchiectasis, ILD
Follows with [facility], last PNA in Feb
She has difficulty producing sputum, can obtain if able-still pending has not been able to produce.
CXR/CT obtained indicating multi-opacities but RUL infiltrate predominant
Other imaging reviewed in past, history of ILD/bronchiectasis
Agree with empiric IV abx-ceftriaxone/Azithromycin. Okay to transition to oral antibiotics. All cultures negative. Complete 7-day course.
Repeat chest x-ray reviewed, improved right upper lobe infiltrate. Possibly worsening left lower lobe. No pleural effusion.
Afebrile
Leukocytosis possibly driven by steroids.
-
Dry cough. In general her cough lingers after pneumonia per patient.
Continue prednisone taper for now-decrease by 10 mg every 72 hours to off.
Continue mucolytic
Encouraged good hydration
DuoNebs as needed-not bronchospastic.
Continue Acapella device
Tessalon Perles as antitussive-patient would like to continue this in the outpatient setting.
Patient will restart Symbicort/Spiriva after discharge. She has not been using it for several months.
Prior ECHO results are reviewed indicating stable EF, no sign disease
ProBNP neg on admission
Resume home cardiac meds
Cards following
Prior speech evaluation, has history of esophageal strictures in the past. She denies any swallowing problems.
GROVE SUPERINTENDENT saw pt on 07/02 and GI consult recommended, which will be done as outpatient
Continue diet as per GROVE SUPERINTENDENT, and pt to see GI in office
Continue aspiration precautions
Patient has history of CREST-not on any therapy. Follows up with Dr. Alvares.
She notes she has been stable from that POV
Will need outpatient pulmonary evaluation in our office for PFTs and 6MWT
Follow-up with Dr. Brar after DC
-
F okay to discharge from the pulmonary perspective for
No additional recommendation
Sign off
Diagnostic Data
Chest X-Ray: 06/08-There are new opacities involving the right upper, left upper and left lower lobes consistent with multifocal pneumonia.
CT Scan:
CT chest performed 07/02/2023: Worsening bilateral multifocal infiltrates/stable bronchiectasis. No pleural effusion.
Persistent bilateral infiltrates compared to 06/11/2023.
CT chest 06/11/2023:
1.). Stable moderately extensive bronchiectasis throughout both lungs
2). Stable 2 cm enlarged pretracheal lymph node at the level of the damaris.
3). New patchy areas of confluent airspace disease in the right middle lobe and lingula which may reflect pneumonia or mucoid impaction
Echocardiogram 03/09/2023: Reviewed, showed normal LVEF. EF 60-65%. Normal right ventricle size and function. No significant valvular abnormalities. Pulmonary hypertension 29-34 mmHg.
PFT's:
Reports and relevant images were personally reviewed.
Subjective Data
-
Date of Service:
Date of Service: June 11, 2024
Chief Complaint: Pulmonary Follow Up (Pneumonia)
Subjective:
Feels better
Only complaint is intermittent dry cough.
Able to ambulate to the restroom without significant shortness of breath
Denies fevers or chills
Tolerating diet
Review of Systems
Cardiopulmonary: Dyspnea (none at rest), Cough (dry), Sputum Production (n), Wheezing (n) and Chest Pain (n)
GI: Abdominal Pain (n) and Nausea (n)
Objective Data
Data Reviewed
Vital Signs / I&O / Oxygen:
Vital Signs
Temp Pulse Resp BP Pulse Ox
97.6 F 88 17 117/61 95
06/11/24 07:25 06/11/24 07:25 06/11/24 07:25 06/11/24 07:25 06/11/24 07:25
Intake and Output
06/10/24 06/11/24 06/12/24
06:59 06:59 06:59
Intake Total 960 / 960 360 / 360 1080 / 1080
Balance 960 / 960 360 / 360 1080 / 1080
SaO2 95
Nasal Cannula flow liters per 2
minute
Physical Exam
General: Respiratory Distress (none at rest) and Comfortable
HEENT: Normocephalic
Cardiovascular: S1-S2
Respiratory: Wheeze (n) and Crackles (left base.)
GI: Soft and Non Distended
Neurology: Awake, Alert and AO x 3
Skin: Warm
Labs/Micro/Reports
Lab Data
06/11/24 05:12
06/11/24 05:12
Microbiology
06/09/24 11:51 Blood/Venous Blood Culture - Preliminary
No Growth in 24 hours- Final report to follow
06/09/24 11:12 Blood/Venous Blood Culture - Preliminary
No Growth in 24 hours- Final report to follow
06/08/24 12:27 Nasal Swab Influenza Types A & B (TORREY) - Final
Negative for Influenza A & B, NAAT
Negative results must be combined with clinical observations
and patient history.
Nucleic Acid Amplification test (NAAT)performed on the
[employer] platform.
[2024-06-11 11:46] VITALS: BP 124/67
--- NOTE | 2024-06-11 12:34 | W.PN.HOSP.TC ---
Today's Communication/Plan
-
d/c home
Assessment / Plan
Assessment / Plan
Multi focal PNA presumed CAP
Sepsis secondary to above
Acute hypoxic respiratory insufficiency - resolved
- NEG Covid. NEG flu A and B
- blood cs x2 sets negative
- weaned off to 1 L NC, home o2 evaluation ordered.
- cw IV CFTX and Azithromycin
- Supportive care including mucolytics, nebs, etc.
HX Chr HFpEF
LVEF 59 % per 02/29/24 TTE
- No evidence of volume overload on exam.
- ProBNP not high it used to
- LAB INSTRUCTOR PO Frusemide 80 daily and 40 HS
- Follow I/Os, daily weights
Hypokalemia
- replace PRN
in and out of afib/aflutter
HX Prx A Fib
Known to Dr. Herbert outpatient [facility]
- LAB INSTRUCTOR Eliquis
- LAB INSTRUCTOR Diltiazem CD; changed to BID which is the right dose per patient
Known Valvular heart dz ; stable
- Mild to moderate mitral regurgitation.
- Mild aortic regurgitation.
- Mild tricuspid regurgitation.
TAMMY
HX intolerant of PAP therapy.
- Has machine at home but never uses it.
- known nocturnal hypoxemia
Benign Hypertension
- Stable.
- Continue outpatient medications.
Scleroderma
CREST Syndrome
Raynaud's
- Stable.
- Continue usual supportive medications.
HX Breast Cancer
- s/p R mastectomy.
- Continue anastrazole for ongoing therapy.
DVT Prophylaxis: On Eliquis
Code: Full
More than 30 minutes spent in discharge including
Final examination of the patient
Summarizing hospital stay
Instructions for continuing care to all relevant caregivers
Preparation of discharge records, prescriptions, and referral forms
Total time spent (in minutes): 38 mins
Anticipated Discharge: Today
Subjective/Interval History
-
Date of Service: June 11, 2024
Patient resting comfortably in bed
Denies of having any issues
Objective Data
-
Labs:
Laboratory Results
06/11/24
05:12
WBC 15.0 H
Hgb 12.1
Hct 35.3 L
Plt Count 379 D
Sodium 137
Potassium 3.6
Chloride 105
Carbon Dioxide 18 L
BUN 32 H
Creatinine 0.8
Glucose 109 H
Calcium 8.8
Vital Signs:
Vital Signs
Temp Pulse Resp BP Pulse Ox
97.3 F 116 19 124/67 95
06/11/24 11:46 06/11/24 11:46 06/11/24 11:46 06/11/24 11:46 06/11/24 07:25
I&O
06/10/24 06/11/24 06/12/24
06:59 06:59 06:59
Intake Total 960 / 960 360 / 360 1080 / 1080
Balance 960 / 960 360 / 360 1080 / 1080
Review of Systems
-
Respiratory: Reports No Symptoms
Cardiac: Reports No Symptoms
Abdomen/GI: Reports No Symptoms
Physical Exam
-
General: No Apparent Distress and Comfortable
HEENT: Negative Oxygen
Respiratory: Negative Wheezes
Cardiac: Regular Rhythm and S1/S2; Negative Murmur or Rub
GI: Soft, Nontender and Nondistended
Musculoskeletal: No Edema
Neuro: Awake, Alert, Oriented, No Motor Deficits and Nonfocal/Grossly Intact
Psych: Calm
--- NOTE | 2024-06-11 14:52 | W.DCSUMMARY ---
Discharge Summary
Discharge Data
Date of Admission: 06/08/24
Date of Discharge: 06/11/24
-
Pending Results: No
Hospital Course
Discharging Physician : Dr Niles Hayes
Disposition : Home
Primary care physician : Dr John Palencia
Principal Discharge diagnosis :
Multifocal pneumonia
Acute hypoxic respiratory insufficiency
Sepsis
History of bronchiectasis
Electrolyte imbalance
Chronic Discharge diagnosis :
Chronic diastolic congestive heart failure
Paroxysmal atrial fibrillation
Moderate mitral regurgitation
Obstructive sleep apnea
Essential hypertension
Scleroderma
History of Raynaud's disease
Benign hypertension
History of breast cancer post right mastectomy
Hospital Course :
Patient is a 68-year-old female with above-mentioned past medical history came to ER with new onset of dyspnea and ongoing cough for few days. Patient had some associated diarrhea as well. No reported fever/chills. Patient was evaluated by
primary care physician and chest x-ray/COVID/flu testing was negative. In ER repeat evaluation and chest x-ray showing concern of possible developing multifocal pneumonia. Patient has history of bronchiectasis and pulmonology was involved in care.
Patient was started on broad-spectrum antibiotic. As patient was having dry cough and was noted to be hypoxic patient was started on steroid therapy as well. Patient does have history of autoimmune condition/scleroderma-crest syndrome. Patient
had improvement in symptoms over next 72 hours, patient was able to be weaned off of oxygen. Pulmonology discharge recommended patient to finish short course of antibiotic and a steroid taper. Patient to follow-up with pulmonology in office.
Important imaging findings :
None
Procedure findings :
None
Discharge Plan
-
Patient Disposition: Home (Routine Discharge)
Discharge Diagnosis/Procedures: COPD flare up, pneumonia
Condition: Fair
Diet: Regular
Activity: As tolerated
Driving Restrictions: No driving for 1 week
Bathing Restrictions: OK to Shower
Referrals:
John Palencia I., [Family Provider] - in one week
Jazmin Brar MD [Active] - in two weeks (May see TWIST PACKER)
Brett Herbert MD [Active] - 07/16/24 10:20 am (You have a follow up visit with Dr. Panda Herbert to discuss repeat ablation. Please call the office with questions. )
Prescriptions:
New
cefdinir 300 mg capsule
300 mg PO BID Qty: 6 0RF
azithromycin 250 mg tablet
250 mg PO DAILY 3 Days Qty: 3 0RF
benzonatate 100 mg capsule
200 mg PO TID PRN (Reason: Cough) Qty: 30 0RF
prednisone 10 mg Tablet
See Rx Instructions .ROUTE .COMPLEX Qty: 30 0RF
Rx Instructions:
Take By Mouth:
40 mg daily x3 days, 30 mg daily x3 days,
20 mg daily x3 days, 10 mg daily x3 days.
Continued
omeprazole 40 MG capsule,delayed release(DR/EC)
40 mg PO DAILY
albuterol sulfate 1 PUFF HFA aerosol inhaler
2 puff inhalation R Q4HPRN PRN (Reason: sob)
anastrozole 1 MG tablet
1 mg PO HS
fluoxetine 20 MG capsule
20 mg PO DAILY
Eliquis 5 MG tablet
5 mg PO BID
atorvastatin 10 mg Tablet
10 mg PO HS
famotidine [Pepcid] 40 mg Tablet
40 mg PO HS
diltiazem HCl 240 mg Capsule,Ext.Rel 24h Degradable
240 mg PO BID
acetaminophen [Tylenol Extra Strength] 500 mg Tablet
1,000 mg PO Q8HPRN PRN (Reason: mild pain/fever)
furosemide 80 mg Tablet
80 mg PO DAILY
furosemide 80 mg Tablet
40 mg PO HS
Patient Comments:
CHANNEL MARKETING MANAGER RECENTLY ADDED 40MG LASIX AT HS
cholecalciferol (vitamin D3) [Vitamin D3] 50 mcg (2,000 unit) Tablet
50 mcg PO DAILY
Prolia 60 mg/mL Syringe
60 mg SC [id number]
guaifenesin [Mucinex] 600 mg tablet extended release 12hr
600 mg PO [id number] PRN (Reason: cough)
Discharge Orders:
Discharge Patient (As Directed); Ordered 06/11/24
Ordered By: Niles Hayes
Discharge Date and Time
Discharge Date/Time: 06/11/24 12:50
Print Language: INDONESIAN
== END 2024-06-11 12:50 | disposition home or self-care (01) | DRG 190 ==
LOC: 3 WEST ACU 14:07
PROVIDERS: Registered Nurse; ADMITTING PHYSICIAN Internal Medicine; ATTENDING PHYSICIAN Hospitalist; CONSULT PHYSICIAN Internal Medicine; CONSULT PHYSICIAN Internal Medicine Cardiovascular Disease; EMERGENCY PHYSICIAN Student in an Organized Health Care Education/Training Program; FAMILY PHYSICIAN Internal Medicine
DX: J44.1 Chronic obstructive pulmonary disease with (acute) exacerbation (principal); A41.89 Other specified sepsis; J18.9 Pneumonia, unspecified organism; E87.1 Hypo-osmolality and hyponatremia; I47.19 Other supraventricular tachycardia; I48.92 Unspecified atrial flutter; I50.32 Chronic diastolic (congestive) heart failure; J47.0 Bronchiectasis with acute lower respiratory infection; J44.0 Chronic obstructive pulmonary disease with (acute) lower respiratory infection; I48.0 Paroxysmal atrial fibrillation; I11.0 Hypertensive heart disease with heart failure; F32.A Depression, unspecified; F41.9 Anxiety disorder, unspecified; G47.33 Obstructive sleep apnea (adult) (pediatric); M34.1 CR(E)ST syndrome; E88.01 Alpha-1-antitrypsin deficiency; I73.00 Raynaud's syndrome without gangrene; R06.89 Other abnormalities of breathing; R09.02 Hypoxemia; M81.0 Age-related osteoporosis without current pathological fracture; E87.6 Hypokalemia; E78.00 Pure hypercholesterolemia, unspecified; K21.9 Gastro-esophageal reflux disease without esophagitis; I95.1 Orthostatic hypotension; I27.29 Other secondary pulmonary hypertension; I34.0 Nonrheumatic mitral (valve) insufficiency; Z60.2 Problems related to living alone; Z79.01 Long term (current) use of anticoagulants; Z90.11 Acquired absence of right breast and nipple; Z90.49 Acquired absence of other specified parts of digestive tract; Z88.5 Allergy status to narcotic agent; Z88.2 Allergy status to sulfonamides; Z88.8 Allergy status to other drugs, medicaments and biological substances; Z79.51 Long term (current) use of inhaled steroids; Z85.3 Personal history of malignant neoplasm of breast; Z82.49 Family history of ischemic heart disease and other diseases of the circulatory system; Z80.8 Family history of malignant neoplasm of other organs or systems; Z87.01 Personal history of pneumonia (recurrent); Z11.52 Encounter for screening for COVID-19
CPT/HCPCS: 71046; 80048; 80053; 83605; 83735; 83880; 85025; 85027; 87040; 87502; 87811; 93005; 94640; 96361; 96365; 96375; 99285

== ENCOUNTER → 2024-06-24 10:38 | Outpatient (REF) | payer MEDICARE, OTHER, SELFPAY ==
[2024-06-24 16:06] LABS: ALT (SGPT) 28 U/L (0-35); AST (SGOT) 23 U/L (14-36); Albumin 3.8 g/dl (3.5-5.0); Alkaline Phosphatase 58 U/L (38-126); Blood Urea Nitrogen 18 mg/dl (7-17); Calcium 9.4 mg/dl (8.4-10.2); Carbon Dioxide 30 mmol/L (22-30); Chloride 102 mmol/L (98-107); Glucose 70 mg/dl (70-99); HDL Cholesterol 101 mg/dl; LDL Cholesterol, Calculated 102 mg/dl; Potassium 3.4 mmol/L (3.5-5.1); Sodium 140 mmol/L (135-145); Total Bilirubin 0.5 mg/dl (0.2-1.3); Total Cholesterol 224 mg/dl (50-199); Total Protein 6.6 g/dl (6.3-8.2); Triglyceride 109 mg/dl (10-149); Very Low Density Lipoprotein 21 mg/dl (0-30); eGFR > 60.00
[2024-06-24 16:37] LABS: TSH Reflex To Free T4 1.55 uIU/ml (0.47-4.68)
[2024-06-24 16:59] LABS: % Basophils 0.1 % (0-2); % Eosinophils 0.5 % (0-6); % Immature Granulocytes 0.5 % (0-0.5); % Neutrophils 70.9 % (42.2-75.2); Absolute Eosinophils 0.1 10^3/uL (0-0.7); Absolute Immature Granulocytes 0.1 10^3/uL (0-0.05); Absolute Lymphocytes 2.6 10^3/uL (1.2-3.4); Absolute Monocytes 1.5 10^3/uL (0.1-0.6); Absolute Neutrophils 10.3 10^3/uL (1.4-6.5); Hematocrit 41.1 % (37.0-47.0); Hemoglobin 13.3 g/dL (12.0-16.0); Mean Corp Hgb Conc. 32.4 g/dL (33.0-37.0); Mean Corpuscular Hgb 28.9 pg (27.0-31.0); Mean Corpuscular Volume 89.3 fL (81.0-99.0); Mean Platelet Volume 9.7 fL (7.4-10.4); Nucleated Red Blood Cells % 0 %; Platelet Count 304 10^3/uL (130-400); Red Cell Dist. Width 15.7 % (11.5-14.5); White Blood Cell Count 14.6 10^3/uL (4.8-10.8)
== END ==
LOC: HWLAB 10:38
PROVIDERS: ATTENDING PHYSICIAN Internal Medicine
DX: I10 Essential (primary) hypertension (principal); M34.1 CR(E)ST syndrome; M34.9 Systemic sclerosis, unspecified; I50.32 Chronic diastolic (congestive) heart failure
CPT/HCPCS: 36415; 80053; 80061; 84443; 85025

== ENCOUNTER → 2024-07-04 10:13 | Outpatient (REF) | payer MEDICARE, OTHER, SELFPAY ==
[2024-07-04 16:18] LABS: % Basophils 0.5 % (0-2); % Eosinophils 2.7 % (0-6); % Lymphocytes 24.1 % (20.5-51.1); % Monocytes 10.3 % (1.7-9.3); % Neutrophils 62.4 % (42.2-75.2); Absolute Eosinophils 0.2 10^3/uL (0-0.7); Absolute Lymphocytes 1.3 10^3/uL (1.2-3.4); Absolute Monocytes 0.6 10^3/uL (0.1-0.6); Absolute Neutrophils 3.4 10^3/uL (1.4-6.5); Hematocrit 37.1 % (37.0-47.0); Hemoglobin 12.2 g/dL (12.0-16.0); Mean Corp Hgb Conc. 32.9 g/dL (33.0-37.0); Mean Corpuscular Hgb 28.8 pg (27.0-31.0); Mean Corpuscular Volume 87.7 fL (81.0-99.0); Mean Platelet Volume 10.2 fL (7.4-10.4); Nucleated Red Blood Cells % 0 %; Platelet Count 179 10^3/uL (130-400); Red Blood Cell Count 4.23 10^6/uL (4.20-5.40); Red Cell Dist. Width 15.4 % (11.5-14.5); White Blood Cell Count 5.5 10^3/uL (4.8-10.8)
[2024-07-04 16:27] LABS: ALT (SGPT) 14 U/L (0-35); AST (SGOT) 23 U/L (14-36); Albumin 4.4 g/dl (3.5-5.0); Alkaline Phosphatase 62 U/L (38-126); Blood Urea Nitrogen 14 mg/dl (7-17); Calcium 8.7 mg/dl (8.4-10.2); Carbon Dioxide 26 mmol/L (22-30); Chloride 104 mmol/L (98-107); Glucose 90 mg/dl (70-99); Iron 70 ug/dl (37-170); Potassium 3.7 mmol/L (3.5-5.1); Sodium 140 mmol/L (135-145); Total Bilirubin 0.5 mg/dl (0.2-1.3); eGFR > 60.00
[2024-07-04 16:36] LABS: Percent Saturation 29 % (20-50); Total Iron Binding Capacity 238 ug/dl (265-497)
[2024-07-04 16:43] LABS: Vitamin D, 25-OH*** 26.9 ng/mL (30-80)
== END ==
LOC: HWWDC 10:13
PROVIDERS: ATTENDING PHYSICIAN Internal Medicine Hematology & Oncology; FAMILY PHYSICIAN Internal Medicine; OTHER PHYSICIAN Internal Medicine Critical Care Medicine; OTHER PHYSICIAN Internal Medicine Rheumatology; REFERRING PHYSICIAN Nurse Practitioner Adult Health
DX: Z12.31 Encounter for screening mammogram for malignant neoplasm of breast (principal); D50.0 Iron deficiency anemia secondary to blood loss (chronic); E55.9 Vitamin D deficiency, unspecified; M81.0 Age-related osteoporosis without current pathological fracture
CPT/HCPCS: 36415; 77063; 77067; 77080; 80053; 82306; 82728; 83540; 83550; 85025

== ENCOUNTER 2024-07-05 18:41 | Emergency (ER) | payer MEDICARE, OTHER, SELFPAY ==
[2024-07-05 18:46] VITALS: BP 101/60
[2024-07-05 20:56] VITALS: BP 121/71
[2024-07-05 21:14] LABS: % Basophils 0.7 % (0-2); % Eosinophils 3.5 % (0-6); % Immature Granulocytes 0.3 % (0-0.5); % Lymphocytes 27.3 % (20.5-51.1); % Monocytes 9.4 % (1.7-9.3); % Neutrophils 58.8 % (42.2-75.2); Absolute Basophils 0.1 10^3/uL (0-0.2); Absolute Eosinophils 0.2 10^3/uL (0-0.7); Absolute Lymphocytes 1.9 10^3/uL (1.2-3.4); Absolute Monocytes 0.6 10^3/uL (0.1-0.6); Hemoglobin 12.9 g/dL (12.0-16.0); Mean Corp Hgb Conc. 34.9 g/dL (33.0-37.0); Mean Corpuscular Hgb 29.3 pg (27.0-31.0); Mean Corpuscular Volume 83.9 fL (81.0-99.0); Mean Platelet Volume 9.6 fL (7.4-10.4); Nucleated Red Blood Cells % 0 %; Platelet Count 160 10^3/uL (130-400); Red Blood Cell Count 4.41 10^6/uL (4.20-5.40); Red Cell Dist. Width 15.5 % (11.5-14.5); White Blood Cell Count 6.8 10^3/uL (4.8-10.8)
[2024-07-05 21:30] LABS: ALT (SGPT) 15 U/L (0-35); AST (SGOT) 24 U/L (14-36); Albumin 4.6 g/dl (3.5-5.0); Alkaline Phosphatase 60 U/L (38-126); Blood Urea Nitrogen 16 mg/dl (7-17); Carbon Dioxide 21 mmol/L (22-30); Chloride 104 mmol/L (98-107); Glucose 89 mg/dl (70-99); Potassium 3.6 mmol/L (3.5-5.1); Sodium 138 mmol/L (135-145); Total Bilirubin 0.6 mg/dl (0.2-1.3); Total Protein 7.3 g/dl (6.3-8.2); eGFR > 60.00
--- NOTE | 2024-07-05 23:06 | ED.GENMED ---
History of Present Illness
General
Chief Complaint: Breathing Problem
Source: patient, previous radiology exam and previous hospital records
Exam Limitations: none
Time Seen by Provider: 07/05/24 22:38
Nursing documentation reviewed up to this point in time: agreed with
History of Present Illness
History of Present Illness:
This is a 68-year-old woman who has history of PAF chronically maintained on Eliquis, history of heart failure with preserved EF, hypertension, scleroderma, interstitial lung disease/bronchiectasis. Prior history of breast cancer status post right
mastectomy maintained on anastrozole. Previous hospitalizations January as well as most recently June 08 to June 11 for treatment of community-acquired pneumonia.
She presents with complaints of bilateral posterior lower 'lung pain' only noted when she takes a deep breath that began today. She has also had mild increase in nonproductive cough today and mild nasal congestion but has not had a fever nor
chills, no chest pain, no palpitations, no shortness of breath. She was concerned for potential return of pneumonia and wanted to 'get on top of it before it gets worse'
Since arrival to the ED, being indoors she admits that cough has now resolved and inspiratory back pain has resolved as well.
She has had her windows open at home and believes that environmental allergies may be triggering her symptoms.
She follows with grain manager, Dr. Brar and has an upcoming follow-up appointment. She has been prescribed Spiriva and Symbicort, has these at home but admits that she has not initiated these as yet.
In March of this year she retired, had been working with [employer].
Overall has been feeling well since custodial.
Past History
Past History
ED Past Medical History: Arrthythmia (Atrial fibrillation), Asthma, Cancer (Breast cancer), COPD, GERD, HTN and Other (Scleroderma, bronchiectasis, anemia, alpha-1 antitrypsin deficiency)
ED Past Surgical History: Cholecystectomy, Gynecological (Right mastectomy) and Orthopedic
Social History
Tobacco: Non-smoker
Alcohol: None
Drug: None
Personal: Other
Living: with family
Employment: Retired
Family History
Family History: Other (Noncontributory)
Phy Exam
Physical Exam
Physical Exam:
GENERAL: Alert , in no apparent distress. 68-year-old woman appears her stated age, awake and alert, pleasant, easily communicative and in no acute distress. Respirations are easy and nonlabored. No cough appreciated during exam. Afebrile.
Normal pulse ox.
EYE: pupils equal and reactive. anicteric. Mild allergic shiners noted.
NECK: Supple, nontender, no meningismus, no significant adenopathy.
ENT: posterior pharynx is clear, oral mucosa is moist. TM clear b/l, nares have mildly boggy pale blue turbinates with scant clear rhinorrhea.
CARDIAC: Regular rate and rhythm. no murmur.
LUNGS: no acute respiratory distress, scant end expiratory wheezing at bases otherwise clear to auscultation.
ABDOMEN: Soft, nondistended, without focal tenderness, normoactive BS.
NEUROLOGICAL: Alert and oriented x3, no focal neuro deficits. Gait is steady.
SKIN: Warm and dry, normal color, skin intact. No rash.
MUSCULOSKELETAL: No C/C/E. peripheral pulses are full and equal b/l. No palpable tenderness.
PSYCH: Normal and appropriate interaction.
Scores
Heart Failure Risk
Heart Failure Risk Score: Not Applicable
Sepsis
Sepsis Screening
Sepsis Assessment: Sepsis Ruled Out
Sepsis Screen
Sepsis Screen: Sepsis Ruled Out
Date: 07/05/24
Time: 23:28
Course
Orders/Labs/Results
Orders:
Orders
07/05/24 18:53
Electrocardiogram (*1) Urgent
Reason for Study: Other
Other Reason for Exam: Possible Sepsis
EKG- Treatment ONCE
CR Chest - 2 Views Urgent
Comment:
Reason For Exam: suspected infection
07/05/24 21:06
Complete Blood Count/With Diff Urgent
Comprehensive Metabolic Panel Urgent
Abnormal Lab Results
07/05/24
21:06
RDW 15.5 H %
(11.5-14.5)
Monocytes % 9.4 H %
(1.7-9.3)
Carbon Dioxide 21 L mmol/L
(22-30)
07/05/24 21:06
07/05/24 21:06
Vital Signs
Initial and Last Documented VS:
Initial Vital Signs
Temp Pulse Resp BP Pulse Ox
97.4 F 76 16 101/60 97
07/05/24 18:46 07/05/24 18:46 07/05/24 18:46 07/05/24 18:46 07/05/24 18:46
Last Documented Vital Signs
Temp Pulse Resp BP Pulse Ox
97.6 F 76 24 121/71 98
07/05/24 20:56 07/05/24 20:56 07/05/24 20:56 07/05/24 20:56 07/05/24 20:56
MDM/Problems Addressed
Differential Diagnosis Includes:
Concern for recurrent pneumonia, CHF, exacerbation of interstitial lung disease/bronchiectasis. Concern for musculoskeletal back pain.
PE is much less likely, patient maintained on Eliquis and has been compliant with twice daily dosing. No previous episodes of thromboembolism.
Chronic conditions affecting care: HTN (Heart failure with preserved EF), Arrhythmia (PAF), COPD (Interstitial lung disease/bronchiectasis, history of pneumonia with hospitalization May 2024 as well as January 2024) and Cancer (History of breast
cancer)
Acute Exacerbation and/or Progression of Chronic Illness: COPD
*Radiology
Radiology exam reviewed: radiology read reviewed (Chest x-ray is unremarkable. No pneumonia, no evidence of CHF.)
*Pulse Oximetry
Patient hypoxic: no
*EKG
Interpreted by ED Provider?: Yes
Comparison EKG: changes noted (Normal sinus rhythm has replaced A-fib with RVR noted June 09, 2024)
Rate: normal
Rhythm: sinus
Regent: normal axis
Interval: normal interval
QRS Pattern: normal QRS
Ischemia: non-specific ST changes (Minimal strain pattern inferolaterally)
*Critical Care Note
Total Time (30-74mins, 75-104mins- exclusive of procedures): Not Applicable
Update Note
Update Note:
23:07
Chest x-ray is unremarkable, clear lung callahan, no evidence of CHF.
Labs are all reassuring with normal white blood cell count, normal H&H. Unremarkable chemistries.
Patient feeling improved with resolution of symptoms since arrival to the ED and exam notable for allergic rhinitis which may be triggering mild exacerbation of COPD/interstitial lung disease.
At this point no indication for antibiotics nor hospitalization.
Encouraged to initiate Spiriva/Symbicort as prescribed by grain manager.
Also recommend she close her windows, use her air conditioner along with changing of the filter and her air conditioner to help reduce indoor allergens.
Prompt follow-up with grain manager for recheck.
Return precautions discussed.
ED Attending Note
-
Portions of this chart may have been created with voice recognition software.� Occasional wrong word or��sound alike� substitutions may have occurred due to the inherent limitations of voice recognition software.
Discharge Plan
Departure
Patient Disposition: Home (Routine Discharge)
Date of Disposition: 07/05/24
Time of Disposition: 23:07
Patient with high blood pressure during this ER visit?: No
Condition: Good
Discharge Problem:
mild exacerbation of COPD, Allergic rhinitis
Instructions: Exacerbation of COPD (DC)
Prescriptions:
No Action
omeprazole 40 MG capsule,delayed release(DR/EC)
40 mg PO DAILY
albuterol sulfate 1 PUFF HFA aerosol inhaler
2 puff inhalation R Q4HPRN PRN (Reason: sob)
anastrozole 1 MG tablet
1 mg PO HS
fluoxetine 20 MG capsule
20 mg PO DAILY
Eliquis 5 MG tablet
5 mg PO BID
atorvastatin 10 mg Tablet
10 mg PO HS
famotidine [Pepcid] 40 mg Tablet
40 mg PO HS
diltiazem HCl 240 mg Capsule,Ext.Rel 24h Degradable
240 mg PO BID
acetaminophen [Tylenol Extra Strength] 500 mg Tablet
1,000 mg PO Q8HPRN PRN (Reason: mild pain/fever)
furosemide 80 mg Tablet
80 mg PO DAILY
furosemide 80 mg Tablet
40 mg PO HS
Patient Comments:
NEW PATIENT ESCORT RECENTLY ADDED 40MG LASIX AT HS
cholecalciferol (vitamin D3) [Vitamin D3] 50 mcg (2,000 unit) Tablet
50 mcg PO DAILY
Prolia 60 mg/mL Syringe
60 mg SC [id number]
guaifenesin [Mucinex] 600 mg tablet extended release 12hr
600 mg PO [id number] PRN (Reason: cough)
cefdinir 300 mg capsule
300 mg PO BID Qty: 6 0RF
azithromycin 250 mg tablet
250 mg PO DAILY 3 Days Qty: 3 0RF
benzonatate 100 mg capsule
200 mg PO TID PRN (Reason: Cough) Qty: 30 0RF
prednisone 10 mg Tablet
See Rx Instructions .ROUTE .COMPLEX Qty: 30 0RF
Rx Instructions:
Take By Mouth:
40 mg daily x3 days, 30 mg daily x3 days,
20 mg daily x3 days, 10 mg daily x3 days.
Referrals:
John Palencia DO [Family Provider] -
Jazmin Brar MD [Active] - Keep scheduled appt
Activity Restrictions/Additional Instructions:
Start that Spiriva and Symbicort, and continue on daily basis. Be sure to rinse your mouth after using the Symbicort.
Change HEPA filter in your air conditioner.
Follow-up with Dr. Brar as already scheduled.
Interventions
Interventions:
*Risk Screen - Suicide Last Done: 07/05/24 18:46
*General Assessment Last Done: 07/05/24 18:46
*Neglect/Abuse Screening Last Done: 07/05/24 18:46
*ED- Fall Risk Assessment Last Done: 07/05/24 18:46
ED- Cardiac Assessment Last Done: 07/05/24 23:23
ED- Pulmonary Assessment Last Done: 07/05/24 23:23
Discharge Date and Time
Print Language: ARABIC
[2024-07-05 23:23] VITALS: BP 149/76
== END 2024-07-05 23:35 | disposition home or self-care (01) ==
LOC: EMR 18:41
PROVIDERS: Student in an Organized Health Care Education/Training Program; EMERGENCY PHYSICIAN Emergency Medicine; FAMILY PHYSICIAN Internal Medicine
DX: J44.1 Chronic obstructive pulmonary disease with (acute) exacerbation (principal); J30.9 Allergic rhinitis, unspecified; I48.0 Paroxysmal atrial fibrillation; I11.0 Hypertensive heart disease with heart failure; I50.9 Heart failure, unspecified; M34.9 Systemic sclerosis, unspecified; Z79.01 Long term (current) use of anticoagulants; Z79.811 Long term (current) use of aromatase inhibitors; Z85.3 Personal history of malignant neoplasm of breast; Z90.11 Acquired absence of right breast and nipple; Z90.49 Acquired absence of other specified parts of digestive tract
CPT/HCPCS: 99283; 71046; 80053; 85025; 93005

== ENCOUNTER → 2024-07-23 10:10 | Outpatient (REF) | payer MEDICARE, OTHER, SELFPAY | LOC: WDC 10:10 | PROVIDERS: ATTENDING PHYSICIAN Internal Medicine Hematology & Oncology; FAMILY PHYSICIAN Internal Medicine | DX: R92.8 Other abnormal and inconclusive findings on diagnostic imaging of breast (principal) | CPT/HCPCS: 77065 ==

== ENCOUNTER → 2024-07-24 11:09 | Outpatient (REF) | payer MEDICARE, OTHER, SELFPAY | LOC: RAD 11:09 | PROVIDERS: ATTENDING PHYSICIAN Nurse Practitioner Family; FAMILY PHYSICIAN Internal Medicine | DX: R59.1 Generalized enlarged lymph nodes (principal) | CPT/HCPCS: 71260; Q9967 ==

== ENCOUNTER → 2024-07-29 15:00 | Outpatient (REF) | payer MEDICARE, OTHER, SELFPAY | LOC: HWRAD 15:00 | PROVIDERS: ATTENDING PHYSICIAN Internal Medicine | DX: E04.1 Nontoxic single thyroid nodule (principal) | CPT/HCPCS: 76536 ==

== ENCOUNTER → 2024-08-02 11:47 | Outpatient (REF) | payer MEDICARE, OTHER, SELFPAY ==
[2024-08-02 15:39] LABS: % Basophils 0.7 % (0-2); % Eosinophils 4.9 % (0-6); % Immature Granulocytes 0.1 % (0-0.5); % Lymphocytes 23.4 % (20.5-51.1); % Monocytes 10.6 % (1.7-9.3); % Neutrophils 60.3 % (42.2-75.2); Absolute Basophils 0.1 10^3/uL (0-0.2); Absolute Eosinophils 0.4 10^3/uL (0-0.7); Absolute Lymphocytes 1.9 10^3/uL (1.2-3.4); Absolute Monocytes 0.9 10^3/uL (0.1-0.6); Absolute Neutrophils 4.8 10^3/uL (1.4-6.5); Hemoglobin 12.2 g/dL (12.0-16.0); Mean Corpuscular Hgb 28.7 pg (27.0-31.0); Mean Corpuscular Volume 87.1 fL (81.0-99.0); Mean Platelet Volume 10.7 fL (7.4-10.4); Nucleated Red Blood Cells % 0 %; Platelet Count 247 10^3/uL (130-400); Red Blood Cell Count 4.25 10^6/uL (4.20-5.40); Red Cell Dist. Width 15.1 % (11.5-14.5)
[2024-08-02 16:28] LABS: Iron 77 ug/dl (37-170)
[2024-08-02 16:39] LABS: Percent Saturation 34 % (20-50); Total Iron Binding Capacity 223 ug/dl (265-497)
[2024-08-02 16:47] LABS: Vitamin D, 25-OH*** 32.3 ng/mL (30-80)
[2024-08-04 23:34] LABS: IgA 200 mg/dl (70-400); IgG 1208 mg/dl (700-1600); IgM 78 mg/dl (40-230)
== END ==
LOC: HWLAB 11:47
PROVIDERS: ATTENDING PHYSICIAN Nurse Practitioner Family; FAMILY PHYSICIAN Internal Medicine; OTHER PHYSICIAN Nurse Practitioner Primary Care; REFERRING PHYSICIAN Internal Medicine Rheumatology
DX: C50.411 Malignant neoplasm of upper-outer quadrant of right female breast (principal); D50.0 Iron deficiency anemia secondary to blood loss (chronic); I27.20 Pulmonary hypertension, unspecified; I73.00 Raynaud's syndrome without gangrene; M34.89 Other systemic sclerosis; M81.0 Age-related osteoporosis without current pathological fracture; R79.9 Abnormal finding of blood chemistry, unspecified; Z51.81 Encounter for therapeutic drug level monitoring; J18.9 Pneumonia, unspecified organism
CPT/HCPCS: 36415; 82306; 82728; 82784; 82787; 83516; 83540; 83550; 85025; 86038

== ENCOUNTER → 2024-09-16 09:05 | Outpatient (REF) | payer MEDICARE, OTHER, SELFPAY ==
[2024-09-16 09:58] LABS: Hematocrit 37.2 % (37.0-47.0); Hemoglobin 12.5 g/dL (12.0-16.0); Mean Corp Hgb Conc. 33.6 g/dL (33.0-37.0); Mean Corpuscular Volume 84.0 fL (81.0-99.0); Nucleated Red Blood Cells % 0 %; Platelet Count 206 10^3/uL (130-400); Red Cell Dist. Width 14.0 % (11.5-14.5)
[2024-09-16 10:28] LABS: INR 1.38; PT 17.2 Sec (11.4-14.6)
[2024-09-16 10:42] LABS: ALT (SGPT) 12 U/L (0-35); AST (SGOT) 23 U/L (14-36); Albumin 4.8 g/dl (3.5-5.0); Alkaline Phosphatase 68 U/L (38-126); Blood Urea Nitrogen 22 mg/dl (7-17); Calcium 9.3 mg/dl (8.4-10.2); Carbon Dioxide 27 mmol/L (22-30); Chloride 104 mmol/L (98-107); Glucose 82 mg/dl (70-99); Magnesium 2.1 mg/dl (1.6-2.3); Potassium 3.4 mmol/L (3.5-5.1); Sodium 139 mmol/L (135-145); Total Protein 7.9 g/dl (6.3-8.2); eGFR 54.39
== END ==
LOC: SDSPAT 09:05
PROVIDERS: ATTENDING PHYSICIAN Internal Medicine Cardiovascular Disease; FAMILY PHYSICIAN Internal Medicine; REFERRING PHYSICIAN Internal Medicine Cardiovascular Disease
DX: I50.32 Chronic diastolic (congestive) heart failure (principal)
CPT/HCPCS: 36415; 80053; 83735; 85025; 85610; 86850; 86900; 86901; 93005

== ENCOUNTER 2024-09-30 05:58 | Day surgery (SDC) | payer MEDICARE, OTHER, SELFPAY ==
[2024-09-16 09:22] VITALS: BMI 31.0
[2024-09-30] VITALS (16 sets, daily range): BP systolic 93–110; BP diastolic 55–89; BMI 30.7
--- NOTE | 2024-09-30 07:39 | ITS.CL.ABL ---
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
Ablation
Procedure Report:
ELECTROPHYSIOLOGIC STUDY AND POSSIBLE ABLATION
DATE: September 30, 2024
Primary Care Provider: Dr. John Palencia
Primary Can Bander Operator: Dr. Venita Herbert
INDICATION:
Symptomatic Atrial Fibrillation and atrial tachycardia.
Paroxysmal
HISTORY: See H and P.
Symptomatic AF, poorly controlled with attempted medical therapy
HAS-BLED: 2
Age
Abnormal Renal Function
CHADSVASc: 4
HFpEF
HTN
Age
F Gender
PRESENTING RHYTHM: SR
HISTORY: See H and P.
Symptomatic AF, poorly controlled with attempted medical therapy.
She has experienced recurrent symptomatic atrial fibrillation and atrial tachycardia. She previously underwent PVI ([facility]) for symptomatic atrial fibrillation.
ANTICOAGULATION: Apixaban 5 mg twice daily
'TIME-OUT': called and confirmed.
SEDATION/ANESTHESIA: provided via the anesthesia department using general anesthesia.
PROCEDURE:
Ultrasound Guidance with real-time visualization of needle insertion and vessel patency performed by sd for femoral venous Vascular Access.
Under real-time US guidance, the needle was advanced with negative pressure into the vein. The needle was seen entering the vessel lumen with a good return of dark red flow, the syringe was removed, non-pulsatile, dark red blood low was noted and
the wire was passed without difficulty, then the needle was removed. US confirmed the wire was in the vein, not going into an artery,
Images were taken and saved for the patient's permanent record. Imaging findings typical femoral venous anatomy. Direct visualization of needle puncture into the femoral vein was observed and recorded.
A decapolar CS catheter was placed within the CS for mapping and pacing.
The intracardiac ultrasound catheter was positioned in the RA for continuous intracardiac ultrasound imaging.
Heparin bolus and infusion to target ACT at 300 -350 seconds was administered. Transseptal puncture was performed. This entailed advancing a sheath with dilator into the superior vena cava and withdrawing both (monitoring intracardiac ultrasound,
fluoroscopy and tip pressure) with the tip oriented toward the atrial septum. The fossa ovalis was engaged (indicated by sudden displacement of the sheath tip as well as tenting of the fossa seen on intracardiac ultrasound).
Transseptal puncture was performed. Left atrial catheter position was confirmed by echocardiographic imaging, pressure monitoring (LA mean pressure 16 mm Hg) and fluoroscopy. The sheath was advanced over the dilator and positioned in the left
atrium.
The [employer] multipolar mapping/ablation Sphere-9 catheter was positioned through the transseptal sheath for high density mapping.
Geometry and voltage mapping was performed using the ViS mapping system for three-dimensional electroanatomical mapping.
Catheter positioning was guided and confirmed using both I.C.E. and fluoroscopy.
High density electroanatomical three-dimensional mapping demonstrated presence of 4 pulmonary veins: LSPV, LIPV, RSPV, RIPV.
There is reconnection at the right superior pulmonary vein towards the anterior quadrant. Otherwise the pulmonary veins are electrically isolated.
Initial ablation strategy included isolation of the pulmonary veins. This was performed by delivering pulsed electric field energy at the anterior quadrant of the right superior pulmonary vein.
Then, mapping for extra PV contributors to atrial fibrillation which would also be targeted if present was performed.
Mapping identified additional areas likely to be extra PV contributors to atrial fibrillation. These areas demonstrated patchy low voltage as well as complex fractionated electrograms. These areas can be sites for the formation of rotors which can
drive and maintain atrial fibrillation. These areas are known to be significant contributors to initiation and perpetuation of atrial fibrillation.
Additional energy applications/additional ablation sets targeted extra PV contributors to atrial fibrillation.
Targets for additional PFA ablation included:
LA posterior wall targeted with pulsed electric field energy isolating the posterior wall of the left atrium
After ablation of the posterior wall, additional targets were addressed and included:
LA inferior floor
These areas were ablated using pulsed electric field energy eliminating the extra PV contributors to atrial fibrillation.
Additionally there are multiple distinct sustained atrial tachyarrhythmias induced during today's case.
There is induction of sustained typical CTI counterclockwise flutter.
Ablation was performed to interrupt the CTI circuit. Ablation was performed along the line from the tricuspid valve annulus to the inferior vena cava at 6:00 and a 30 degree TOMER projection
RF energy was used closer to the tricuspid valve annulus and PFA energy was used to closure to the inferior vena cava
Bidirectional block across the CTI was proven by activation mapping
Continued attempts at induction induced a focal atrial tachycardia mapped earliest to the interatrial septum just posterior to and slightly higher than His bundle recordings
Initially PFA energy was delivered from the right atrium approximately 0.5 cm from the His bundle recording but this could not interrupt the tachycardia
Transseptal access was regained and earliest activation is left atrial on the septum. Distance is 0.3 - 0.5 centimeters from the His bundle recording.
PFA energy was delivered terminating the atrial tachycardia.
Initially there is PA interval prolongation, prolonged from a baseline of 216 ms to 350 ms. No heart block. Within 30 minutes, PA interval reduced to 240 ms and AVN Wenckebach cycle length is 630 ms.
I.C.E. :
Pre-Ablation Post-Ablation
LVEF: 55 % 55 %
WMA: none none
Pericardial effusion: none none
COMPLICATIONS:
Transient PA interval prolongation with PFA energy delivery close to the His bundle recording.
SUMMARY:
- Mapping and ablation to isolate the PVs resulting in electrical isolation of the pulmonary veins
- Additional AF ablation sets X 2 after PVI resulting in elimination of the targeted extra PV contributors to atrial fibrillation
LA posterior wall
Inf/floor of the LA posterior wall resulting in elimination of the targeted extra PV contributors to atrial fibrillation (Post wall, Inf LA floor)
- Mapping and ablation of second and third tachycardias.
CTI right atrial flutter
LA focal tachycardia
- 3-D Electroanatomical Mapping
- Intracardiac Ultrasound
- Ultrasound guidance for vascular access
Post ablation, I discussed today's findings and results with the patient's sister, Bere.
RECOMMENDATIONS:
- Observe in monitored bed.
- Maintain oral anticoagulation.
- Stop diltiazem (if antihypertensive drug therapy is required would avoid AV edd blocking agents if possible)
- Office visit with Petra Lyon NP is scheduled for January 10, 2025
- Continue cardiovascular care with Dr Venita Herbert
Copy to:
Dr. John Palencia
Dr. Venita Herbert
[2024-09-30 08:24] LABS: ACT-LR - POC 379 Seconds (116-155)
[2024-09-30 08:40] LABS: ACT-LR - POC 368 Seconds (116-155)
[2024-09-30 08:56] LABS: ACT-LR - POC 390 Seconds (116-155)
[2024-09-30 09:14] LABS: ACT-LR - POC 347 Seconds (116-155)
[2024-09-30 09:31] LABS: ACT-LR - POC 319 Seconds (116-155)
[2024-09-30] MEDS: LASIX 80 MG IV (10:11)
--- NOTE | 2024-09-30 11:21 | PTCARENOTE ---
Rec'd Pt, s/p ablation, A,A+Ox3, denies pain, L femoral vein dsg D+I. + L DP pulse.
--- NOTE | 2024-09-30 13:42 | CM ---
Chart reviewed. Patient is independent of ADLS, lives alone in a 2nd floor apartment, [address], 0 [address]. Plan is for the patient to return home. CM to follow
--- NOTE | 2024-09-30 14:20 | PTCARENOTE ---
Figure of 8 suture clipped at 1335 without incident. Pt was on bedrest for 30 min after suture clipped and then assisted OOB. Pt ramy well.
[2024-09-30] MEDS: LASIX 80 MG PO (15:22)
[2024-09-30] MEDS: VENTOLIN NEBULES 2.5 MG INH (17:35)
[2024-09-30] MEDS: SYMBICORT 80/4.5 MCG INHALER 2 PUFF INH (20:15)
[2024-09-30] MEDS: PEPCID 20 MG PO (20:27)
[2024-09-30] MEDS: ELIQUIS 5 MG PO (20:28)
--- NOTE | 2024-09-30 22:02 | PTCARENOTE ---
Received pt at change of shift OOB in chair. SR on tele, HR in the 70's. pt denies any CP. 1L O2 applied for comfort per pt request. SpO2 97%. Right groin site C.D.I. No bleeding or hematoma noted at this time. Educated pt to call RN w/ any
questions/concerns. Call shook within reach.
[2024-09-30] MEDS: LIPITOR 10 MG PO (22:19)
[2024-09-30] MEDS: ARIMIDEX 1 MG PO (22:19)
[2024-10-01 00:11] VITALS: BP 129/72
[2024-10-01 03:15] VITALS: BP 112/67
[2024-10-01 04:14] LABS: Hematocrit 37.5 % (37.0-47.0); Hemoglobin 12.6 g/dL (12.0-16.0); Mean Corp Hgb Conc. 33.6 g/dL (33.0-37.0); Mean Corpuscular Volume 84.3 fL (81.0-99.0); Platelet Count 177 10^3/uL (130-400); Red Cell Dist. Width 14.0 % (11.5-14.5)
[2024-10-01 04:34] LABS: Blood Urea Nitrogen 22 mg/dl (7-17); Calcium 8.8 mg/dl (8.4-10.2); Carbon Dioxide 24 mmol/L (22-30); Chloride 105 mmol/L (98-107); Estimated Creatinine Clearance 61 ml/min; Glucose 129 mg/dl (70-99); Magnesium 1.9 mg/dl (1.6-2.3); Potassium 3.7 mmol/L (3.5-5.1); Sodium 138 mmol/L (135-145); eGFR > 60.00
[2024-10-01 06:00] VITALS: BMI 31.0
[2024-10-01 06:03] LABS: Hepatitis C Antibody Negative (Negative)
[2024-10-01 07:00] VITALS: BP 140/77
[2024-10-01] MEDS: SYMBICORT 80/4.5 MCG INHALER 2 PUFF INH (07:35)
[2024-10-01] MEDS: SPIRIVA RESPIMAT 2.5 MCG 2 PUFF INH (07:35)
[2024-10-01 08:19] VITALS: BP 140/77
[2024-10-01] MEDS: PROTONIX 40 MG PO (08:59)
[2024-10-01] MEDS: ELIQUIS 5 MG PO (08:59)
[2024-10-01] MEDS: LASIX 80 MG PO (09:00)
[2024-10-01] MEDS: PEPCID 20 MG PO (09:00)
[2024-10-01] MEDS: PROZAC 20 MG PO (09:00)
--- NOTE | 2024-10-01 10:37 | W.PN.CARDCBS ---
Addendum entered and electronically signed by Wally Tariq MD 10/01/24 13:58:
Patient seen and examined
Reviewed telemetry with stable NY interval and in fact improved compared to yesterday
No atrial arrhythmias noted
No symptoms per patient
Reviewed findings of procedure with Dr. Herbert the performing physician
Exam:
Bilateral groins clean dry and intact
Cor regular no murmur
Lungs clear to auscultation bilaterally
Alert and x 3
Nonfocal neurologically
Remainder as per WRAPPER STEMMER HAND note
IMPRESSION:
PAF, prior PVI (2020)
Recurrent symptomatic AF/AT
s/p PFA w/R atrial flutter CTI, Left AT ablation, 09/30/24
Transient prolonged NY interval post procedure
Chronic diastolic HFpEF, 59%
Interstitial Lung Disease w/alpha-1 antitrypsin deficiency w/chronic low DLCO
Recurrent PNA requiring hospitalization
Right BrCa, s/p mastectomy (2018)
TAMMY/CPAP intolerant
HTN
HLD
GERD
Esophageal Strictures
Reynaud's
PLAN:
Tele- NSR, some 1st deg AVB, NY 200-212ms, no arrhythmia
Groin site stable
Some dyspnea post procedure with elevated filling pressures- good response to IV lasix- continue PO lasix at current dose
Resumed eliquis last evening
Diltiazem on hold d/t prolonged NY- improved overnight and now with some elevated SBP
will resume at decreased dose- 240mg daily
Will set up 1 week Rhythm Star monitor- to be placed at discharge today per cardiology office
Followup in December at [facility] as scheduled
Home today
Original Note:
Today's Communication / Plan
-
Decrease diltiazem to 240mg daily- resume in AM
RhythmStar monitor- placed at d/c today per Cardiology office- 1 week monitor
followup at [facility]
home today
Impression / Plan
-
PCP: John Palencia, DO
CDY: Panda Herbert MD
68 y/o, presents with symptomatic AFib/ATach, poorly controlled with attempted medical therapy. Prior PVI in 2020. [id number], maintained on eliquis, diltiazem.
S/P redo PVI with PF as well as CTI right atrial flutter and LA focal tachycardia. Complications include transient NY interval prolongation with PFA energy delivery close to the His bundle recording, initially up to 350ms, now improved to 200-212ms.
Diltiazem had been held overnight.
IMPRESSION:
PAF, prior PVI (2020)
Recurrent symptomatic AF/AT
s/p PFA w/R atrial flutter CTI, Left AT ablation, 09/30/24
Transient prolonged NY interval post procedure
Chronic diastolic HFpEF, 59%
Interstitial Lung Disease w/alpha-1 antitrypsin deficiency w/chronic low DLCO
Recurrent PNA requiring hospitalization
Right BrCa, s/p mastectomy (2018)
TAMMY/CPAP intolerant
HTN
HLD
GERD
Esophageal Strictures
Reynaud's
PLAN:
Tele- NSR, some 1st deg AVB, NY 200-212ms, no arrhythmia
Groin site stable
Some dyspnea post procedure with elevated filling pressures- good response to IV lasix- continue PO lasix at current dose
Resumed eliquis last evening
Diltiazem on hold d/t prolonged NY- improved overnight and now with some elevated SBP
will resume at decreased dose- 240mg daily
Will set up 1 week Rhythm Star monitor- to be placed at discharge today per cardiology office
Followup in December at [facility] as scheduled
Home today
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
Subjective
Date of Service: October 01, 2024
Denies CP/palps/dyspnea
oob ambulating
groin site without pain
Objective
Labs:
10/01/24 03:41
10/01/24 03:41
Labs
Hgb 12.6 g/dL (12.0-16.0) 10/01/24 03:41
Hct 37.5 % (37.0-47.0) 10/01/24 03:41
Plt Count 177 10^3/uL (130-400) 10/01/24 03:41
Sodium 138 mmol/L (135-145) 10/01/24 03:41
Potassium 3.7 mmol/L (3.5-5.1) 10/01/24 03:41
BUN 22 mg/dl (7-17) H 10/01/24 03:41
Creatinine 0.8 mg/dL (0.6-1.0) 10/01/24 03:41
Glucose 129 mg/dl (70-99) H 10/01/24 03:41
Vital Signs and I&O:
Vital Signs
Temp Pulse Resp BP Pulse Ox
97.5 F 89 18 140/77 95
10/01/24 07:00 10/01/24 07:46 10/01/24 07:46 10/01/24 07:00 10/01/24 07:46
Vital Signs
Temp Pulse Resp BP Pulse Ox
97.5 F 89 18 140/77 95
10/01/24 07:00 10/01/24 07:46 10/01/24 07:46 10/01/24 07:00 10/01/24 07:46
Intake & Output
09/29/24 09/30/24 10/01/24 10/02/24
06:59 06:59 06:59 06:59
Intake Total 1580 / 1580
Output Total 1550 / 1550
Balance 30 / 30
Physical Exam
Physical Exam
AA)x3, MAEE 5/5
RRR S1 S2 no murmurs
CTA bilat, non labored
soft abd, + bs
right groin site without ht/bleeding, non tender
bilat extremities w/palpable distal pulses, no edema
--- NOTE | 2024-10-01 10:56 | W.DS.TRANS ---
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
-
Discharge Instructions:
Discharge Diagnosis/Procedures AFib, s/p ablation
Diet Low Cholesterol
Driving Restrictions No driving for 24 hours
Instructions:
Stand-Alone Forms: DC Instructions- Cath/EP Lab
Changes to Home Medications: Yes
Discharge Medications:
DC Medications w/original date entered in [facility]
omeprazole 40 mg capsule,delayed release 40 mg PO DAILY Gastrointestinal issue 02/17/18
albuterol sulfate 90 mcg/actuation aerosol inhaler 2 puff inhalation R Q4HPRN PRN sob 06/07/18
anastrozole 1 mg tablet 1 mg PO HS Cancer 12/07/19
fluoxetine 20 mg capsule 20 mg PO DAILY Depression 05/12/20
apixaban 5 mg tablet (Eliquis) 5 mg PO BID Blood clot prevention/tx 09/11/20
atorvastatin 10 mg tablet 10 mg PO HS High cholesterol 01/31/22
famotidine 40 mg tablet (Pepcid) 40 mg PO HS Gastrointestinal Issue 12/18/23
acetaminophen 500 mg tablet (Tylenol Extra Strength) 1,000 mg PO Q8HPRN PRN mild pain/fever 06/08/24
cholecalciferol (vitamin D3) 50 mcg (2,000 unit) tablet (Vitamin D3) 50 mcg PO DAILY Supplement 06/08/24
denosumab 60 mg/mL subcutaneous syringe (Prolia) 60 mg SC [id number] 06/08/24
furosemide 80 mg tablet 80 mg PO BID@0800,1600 Fluid Retention/Swelling 06/08/24
budesonide-formoterol HFA 80 mcg-4.5 mcg/actuation aerosol inhaler (Symbicort) 2 puff inhalation BID 09/12/24
tiotropium bromide 1.25 mcg/actuation mist for inhalation (Spiriva Respimat) 2 puff inhalation DAILY 09/12/24
albuterol sulfate 2.5 mg/3 mL (0.083 %) solution for nebulization 2.5 mg inhalation BIDPRN PRN wheezing/sob 09/30/24
diltiazem HCl 240 mg capsule,extended release 24 hr, controlled 240 mg PO DAILY Heart Disease/BP #0 caps 10/01/24
Home Medication Changes
DOSE CHANGE: diltiazem
Pending Results: No
[2024-10-01 11:16] VITALS: BP 96/59
[2024-10-01 11:21] VITALS: BP 112/70
--- NOTE | 2024-10-01 11:31 | PTCARENOTE ---
Pt's HR 120-130's with activity this morning, noted by Christiane Brewster, Diltiazem 240 mg po ordered and given.
[2024-10-01] MEDS: CARDIZEM CD 240 MG PO (11:37)
== END 2024-10-01 12:25 | disposition home or self-care (01) ==
LOC: CATH 05:58
PROVIDERS: Nurse Practitioner; ATTENDING PHYSICIAN Internal Medicine Cardiovascular Disease; FAMILY PHYSICIAN Internal Medicine; OTHER PHYSICIAN Internal Medicine Cardiovascular Disease
DX: I48.0 Paroxysmal atrial fibrillation (principal); I11.0 Hypertensive heart disease with heart failure; I50.32 Chronic diastolic (congestive) heart failure; E78.5 Hyperlipidemia, unspecified; E88.01 Alpha-1-antitrypsin deficiency; M34.9 Systemic sclerosis, unspecified; Z85.3 Personal history of malignant neoplasm of breast; G47.33 Obstructive sleep apnea (adult) (pediatric); J84.9 Interstitial pulmonary disease, unspecified; Z87.01 Personal history of pneumonia (recurrent); J47.9 Bronchiectasis, uncomplicated; H33.21 Serous retinal detachment, right eye; M81.0 Age-related osteoporosis without current pathological fracture; E04.1 Nontoxic single thyroid nodule; Z79.01 Long term (current) use of anticoagulants; Z79.899 Other long term (current) drug therapy
CPT/HCPCS: C1733; C1894; C1769; C1766; C1730; C1892; 80048; 83735; 85027; 85347; 86803; 93005; 93655; 93656; 93657; 94640

== ENCOUNTER → 2024-12-17 13:54 | Outpatient (REF) | payer MEDICARE, OTHER, SELFPAY | LOC: HWRAD 13:54 | PROVIDERS: ATTENDING PHYSICIAN Internal Medicine Critical Care Medicine; FAMILY PHYSICIAN Internal Medicine | DX: R07.9 Chest pain, unspecified (principal); J47.9 Bronchiectasis, uncomplicated; J84.9 Interstitial pulmonary disease, unspecified; R06.02 Shortness of breath | CPT/HCPCS: 71046 ==

== ENCOUNTER → 2024-12-20 10:44 | Outpatient (REF) | payer MEDICARE, OTHER, SELFPAY ==
[2024-12-20 15:39] LABS: Blood Urea Nitrogen 14 mg/dl (7-17); Calcium 8.2 mg/dl (8.4-10.2); Carbon Dioxide 28 mmol/L (22-30); Chloride 105 mmol/L (98-107); Glucose 82 mg/dl (70-99); Potassium 3.6 mmol/L (3.5-5.1); Sodium 141 mmol/L (135-145); eGFR > 60.00
== END ==
LOC: HWLAB 10:44
PROVIDERS: ATTENDING PHYSICIAN Internal Medicine Cardiovascular Disease; FAMILY PHYSICIAN Internal Medicine
DX: I50.32 Chronic diastolic (congestive) heart failure (principal); I48.0 Paroxysmal atrial fibrillation
CPT/HCPCS: 36415; 80048; 83880

== ENCOUNTER → 2025-01-17 06:37 | Outpatient (REF) | payer MEDICARE, OTHER, SELFPAY | LOC: MRI 06:37 | PROVIDERS: ATTENDING PHYSICIAN Orthopaedic Surgery; FAMILY PHYSICIAN Internal Medicine | DX: M25.551 Pain in right hip (principal) | CPT/HCPCS: 73721 ==